=== PATIENT | male | born 1950 | race Caucasian/White ===

== ENCOUNTER → 2018-04-28 17:24 | Outpatient (CLI) | payer MEDICARE, MEDICAID, SELFPAY | PROVIDERS: Referring Provider Otolaryngology; Visit Provider Otolaryngology | DX: J32.9 Chronic sinusitis, unspecified (principal) | CPT/HCPCS: 87070; 87077; 87186; 87205 ==

== ENCOUNTER 2018-05-05 23:04 | Emergency (ER) | payer MEDICARE, MEDICAID, SELFPAY ==
[2018-05-05 23:06] VITALS: BP 143/87; PULSE 55; RESP 18; TEMP 36.4; O2SAT 98; BMI 37.1
--- NOTE | 2018-05-05 23:27 | EKG12_ITS ---
Test Reason : SOB Blood Pressure : / mmHG Vent. Rate : 049 BPM Atrial Rate : 049 BPM P-R Int : 164 ms QRS Dur : 104 ms QT Int : 472 ms P-R-T Axes : 047 000 018 degrees QTc Int : 426 ms Sinus bradycardia Otherwise normal ECG Confirmed by BRIANNE TAM, EVERARDO ([id number]), features editor BONI MCGUIRE ([id number]) on 05/10/2018 3:14:22 PM Referred By: Chun Vance Confirmed By:EVERARDO DECKER MD
--- NOTE | 2018-05-05 23:33 | ED.VISSUMM ---
- ER Visit Summary Date of Service: 05/05/18 Chief Complaint: Shortness of breath History of Present Illness: The patient is a [address] Brooks. He reports his shortness of breath began approximately 2 months ago. States that it is severe at worst and mild currently. He states it is unchanged with exertion. It is worse with laying flat. He has seen his primary care physician and had a chest x-ray that was unremarkable. He has an albuterol MDI and nebulizer and reports no relief with these. Patient denies any cough. No fever or chills. No chest pain, pressure, or tightness. He does have a history of a stent in 2012, but does not see a automobile dealer at this time. Physical Examination: Vitals: Stable. Afebrile. General: Well-nourished and well-developed. Head: Normocephalic atraumatic. Neck: Supple, no lymphadenopathy. No JVD. Nontender. Cardiovascular: Regular rate and rhythm. No murmurs. Respiratory: No respiratory distress. Clear to auscultation bilaterally. Abdominal: Soft, nontender, nondistended, normal bowel sounds. No guarding, rebound, or peritoneal signs. Back: Nontender. Extremities: Nontender, no edema. Skin: Normal color, no rash. Neurologic: Alert and oriented ?3. Cranial nerves II through XII are intact. Normal strength and sensation. Psych: Normal affect. Test Results: EKG is sinus bradycardia at [address] changes. There is no old EKG for comparison. Troponin is negative. PT DIRECTOR CLIENT SERVICES is 71. CBC is normal. Chem-7 is more for sodium 134, potassium 3.2, creatinine 0.66, calcium 8.4. Chest x-ray is normal. Emergency Department Course and Treatment: Patient's resting comfortably without complaint. Treatment Plan: I had a prolonged discussion with the patient and his about possible etiologies for this. He was unable to have a sleep study due to anxiety. He has the body habitus of somebody that could to have obstructive sleep apnea. His dyspnea is at night. I have suggested that he follow-up with his primary care physician as soon as possible for further evaluation. Return to the emergency department for any worsening symptoms. Disposition: To home in improved and stable condition. Impression: 1. Dyspnea, uncertain cause. This note was generated with [employer] software. It may contain incorrect words, spelling, and punctuation that were not noted in review of the chart prior to signing ED Disposition - Plan for ED Patient: Disposition: Home or Assisted Living Chief Complaint: Shortness of Breath Instructions: ED Dyspnea Shortness of Breath Referrals: Hansa Brooks, RN [Primary Care Provider] - As soon as possible
[2018-05-05 23:47] VITALS: O2SAT 96
[2018-05-05] MEDS: 0.9% Normal Saline 1,000 ML 150 ML IV (23:47)
[2018-05-05 23:56] LABS: Absolute Lymphocyte Count 2.12 X10^3/ul (0.83-4.51); Absolute Neutrophil Count 6.5 X10^3/uL (2.0-7.7); Basophil# 0.01 X10^3/uL; Basophil% 0.1 % (0-1); Eosinophil# 0.12 X10^3/uL; Eosinophils% 1.3 % (0-5); Hemoglobin 14.3 g/dl (13.0-16.5); Lymphocyte # 2.12 X10^3/ul (4.0); Lymphocyte % 22.3 % (19-41); Mean Corpuscular Hgb 30.4 pg (27.0-32.0); Mean Corpuscular Volume 89.4 fL (80-94); Mean Platelet Vol. 10.1 fl (6.2-12.0); Monocyte# 0.74 X10^3/uL; Monocyte% 7.8 % (0-10); Neutrophil # 6.49 X10^3/uL (2.7-7.7); Neutrophil % 68.1 % (47-70); Platelet Count 246 K/mm3 (150-450); RBC Distribution Width CV 13.1 % (11.6-14.6); RBC Distribution Width SD 42.8 fl (35.1-43.9); White Blood Count 9.5 K/mm3 (4.4-11.0)
--- NOTE | 2018-05-06 | RAD_ITS ---
STUDY: X-RAY CHEST REASON FOR EXAM: Male, 67 years old. Shortness of breath for 2 months. TECHNIQUE: PA and lateral views of the chest. COMPARISON: Prior comparison studies are not available for review at this time. FINDINGS: No focal infiltrate is seen. There is no demonstrated pleural abnormality. Normal size heart. Normal mediastinum and jeffrey. Normal visualized pulmonary arteries. There is atherosclerotic tortuosity of the aortic arch and descending thoracic aorta. There are degenerative changes of the visualized thoracic spine. There is degenerative osteoarthritis of the bilateral shoulders. There is no demonstrated abnormality of the visualized soft tissue structures of the upper abdomen. RAD/Chest PA and Lateral IMPRESSION: No active pulmonary disease. Electronically Signed: Guido Gibson MD at 0:35 EDT Tel , Service support ,
[2018-05-06 00:08] LABS: POSITIVE COUNT NO; POSITIVE DIFFERENTIAL NO; POSITIVE MORPHOLOGY NO
[2018-05-06 00:11] LABS: Anion Gap 6 (5-15); BUN 14 mg/dL (7-18); BUN/Creat Ratio 21.1 RATIO (10-20); Calcium,Total 8.4 mg/dL (8.5-10.1); Chloride 100 mmol/L (98-107); Creatinine, Serum 0.66 mg/dL (0.70-1.30); EST Glomerular Filtration Rate 127 mL/min (>60); Est Glom Filt Rate - Afr Amer 154 mL/min (>60); Estimated Creatinine Clearance 77.39 ml/min; Glucose 100 mg/dL (74-106); Potassium 3.2 mmol/L (3.5-5.1); Sodium Level 134 mmol/L (136-145)
[2018-05-06 00:27] LABS: BNP,B-Type NATRIURETIC PEPTIDE 70.8 pg/mL (0-100)
[2018-05-06 01:04] VITALS: BP 122/70; PULSE 50; RESP 16; O2SAT 98
--- NOTE | 2018-05-06 10:33 | CM.ED ---
Addendum entered by Alma Tucker 05/06/18 14:33: Patient returned call stating that he is having difficulty breathing. He states he has felt this way since he got home from the ER, early in the morning. He states he has used his inhaler but not his nebulizer. Patient states he left a message with his primary care doctor, but has not had a return call from them yet. He states he saw Dr. Roach for pulmonary testing on 04/15. He is scheduled to undergo sinus removal surgery on 05/[address] Valentine. I asked the patient if he has any history of anxiety. He stated that he had a very rare anxiety attach a couple years ago. He tells me he forgets what it was called, but the chances of having it are one in 100,000. His doctor prescribed him 10 valium at the time, but he has none left. Patient does indicate that he feels anxiety could be involved in his feelings of shortness of breath. I encouraged the patient to use his nebulizer and if he feels no improvement, to return to ED. We did discuss oxygen saturation and how his levels were 98% in the ER yesterday. I mentioned that, to calm his anxiety, he could purchase a pulse oximeter at a drug store. Reviewed that we want his oxygen saturation to be above 90%. Encouraged slow, deep breathing. Encouraged the patient to call Dr. Roach's office and continue to follow-up with PCP. Return to ED if no improvement, with nebulizer, or worsening of symptoms. Patient states understanding and agreement with this plan. Original Note: ED CALLBACK: Follow-up call placed to patient. No answer. Voicemail left with return contact information.
== END 2018-05-06 01:10 | disposition home or self-care (01) ==
LOC: ED 23:41
PROVIDERS: Emergency Provider Emergency Medicine; Family Provider Nurse Practitioner Family
DX: R06.00 Dyspnea, unspecified (principal); R00.1 Bradycardia, unspecified; R19.7 Diarrhea, unspecified; I25.10 Atherosclerotic heart disease of native coronary artery without angina pectoris; Z95.5 Presence of coronary angioplasty implant and graft; J45.909 Unspecified asthma, uncomplicated; F41.9 Anxiety disorder, unspecified; I10 Essential (primary) hypertension; Z87.891 Personal history of nicotine dependence
CPT/HCPCS: 71046; 80048; 83880; 84484; 85025; 93005; 99284; J7030

== ENCOUNTER → 2018-06-09 08:12 | Outpatient (CLI) | payer MEDICARE, MEDICAID, SELFPAY ==
--- NOTE | 2018-06-09 08:23 | ECHOD_ITS ---
Reason For Study: CAD/ASHD Procedure This was a 2D Doppler, Color Flow transthoracic echocardiogram. Exam performed in department. Left Ventricle Normal size and thickness. The estimated ejection fraction is 65 %. Stage 1 diastolic dysfunction. No regional wall motion abnormalities noted. Right Ventricle Normal size and thickness. Normal systolic function. Atria Normal left atrium. Normal right atrium. Normal atrial septum. Mitral Valve The mitral valve is structurally normal. No prolapse or stenosis seen. Trivial mitral valve insufficiency. Tricuspid Valve Normal tricuspid valve. Trivial tricuspid valve insufficiency. Right ventricular systolic pressure estimated to be 26 mmHg. Aortic Valve Trisinus/trileaflet aortic valve. Aortic sclerosis, no stenosis. Pulmonic Valve Normal pulmonic valve. Trivial pulmonic valve insufficiency. Great Vessels Normal aortic root. Normal arch. Normal inferior vena cava. Inferior vena cava collapse with sniff. Pericardium/Pleural No pericardial effusion. MMode/2D Measurements & Calculations LVIDd: 6.0 cm IVSd: 1.2 cm Ao root diam: 4.0 cm LVIDs: 4.0 cm LVPWd: 1.1 cm RVDd: 4.6 cm FS: 33.8 % LAV(MOD-bp): 61.7 ml LVAd ap4: 27.5 cm2 SV(MOD-sp4): 52.2 ml LAV(MOD-bp) Indexed: 26.1 ml/m2 EDV(MOD-sp4): 80.8 ml LAV(MOD-sp2): 78.0 ml EDV(sp4-el): 79.7 ml LAV(MOD-sp4): 47.7 ml LVAs ap4: 14.4 cm2 ESV(MOD-sp4): 28.6 ml ESV(sp4-el): 27.0 ml EF(MOD-sp4): 64.6 % EF(sp4-el): 66.1 % SV(sp4-el): 52.7 ml LA A4 area: 18.6 cm2 LA dimension(2D): 4.6 cm RA A4 area: 18.5 cm2 Doppler Measurements & Calculations MV E max mango: 65.0 cm/sec Lat Peak E' Mango: 6.9 cm/sec Med Peak E' Mango: 5.0 cm/sec MV A max mango: 94.7 cm/sec E/E' lat: 9.4 E/E' med: 13.1 MV E/A: 0.69 Ao V2 max: 163.8 cm/sec LV V1 max: 128.5 cm/sec PA V2 max: 96.1 cm/sec Ao max P.7 mmHg LV V1 max P.6 mmHg Ao V2 mean: 113.5 cm/sec Ao mean P.7 mmHg Ao V2 VTI: 38.5 cm TR max mango: 231.5 cm/sec TR max P.4 mmHg Interpretation Summary The estimated ejection fraction is 65 %. Stage 1 diastolic dysfunction. Trivial mitral valve insufficiency. Trivial tricuspid valve insufficiency. Right ventricular systolic pressure estimated to be 26 mmHg. There is no comparison study available. Ordering Physician: Ramo Tolliver Referring Physician: Hansa Brooks Performed By: Yeny Gutierrez, TANYA, RVT
[2018-06-09 09:25] LABS: AST(SGOT) 22 U/L (15-37); Alanine Aminotransfer ALT/SGPT 37 U/L (16-61); Albumin, Serum 3.6 g/dL (3.2-5.0); Alkaline Phosphatase 81 U/L (45-117); Cholesterol 202 mg/dL (200); Globulin 3.3 g/dL (2.2-4.2); High Density Lipoprotein 44 mg/dL; Protein, Total 6.9 g/dL (6.4-8.2); Triglycerides 91 mg/dL; Very Low Density Lipoprotein 18 mg/dL (5-40)
== END ==
PROVIDERS: Family Provider Nurse Practitioner Family; Referring Provider Internal Medicine Cardiovascular Disease; Visit Provider Internal Medicine Cardiovascular Disease
DX: I25.10 Atherosclerotic heart disease of native coronary artery without angina pectoris (principal); I71.9 Aortic aneurysm of unspecified site, without rupture; I10 Essential (primary) hypertension; R06.02 Shortness of breath; Z95.5 Presence of coronary angioplasty implant and graft
CPT/HCPCS: 36415; 80061; 80076; 93306

== ENCOUNTER → 2018-06-15 09:19 | Outpatient (CLI) | payer MEDICARE, SELFPAY ==
--- NOTE | 2018-06-15 09:20 | STEWCON_ITS ---
Reason For Study: SOB, PATTEN Stress Results Protocol: Prasad Protocol Maximum Predicted HR: 153 bpm Target HR: 130 bpm % Maximum Predicted HR: 80 % DurationHeart Rate Stage (mm:ss) (bpm) BP Comment Baseline 66 122/88Diluted Definity 3 ML Given; No Chest Pain Prasad Protocol Stage I 3:00 92 156/82No Chest Pain; Moderate Dyspnea Prasad Protocol Stage II 3:00 123 174/80No Chest Pain; Severe Dyspnea; Mild Arm Pain Recovery 85 120/84No Chest Pain; No Dyspnea Stress Duration: 6:00 mm:ss Maximum Stress HR: 123 bpm METS: 7 Baseline Echocardiogram Findings The estimated ejection fraction is 60 %. Stress Echo Wall motion Data Resting WM Intermediate WM Stress WM Resting Wall Motion Wall Motion Stress No regional wall motion No regional wall motion abnormalities noted. abnormalities noted. EKG Data Normal intervals are noted. The patient exercised according to the regular Prasad protocol for a total duration of 6:00. The maximum heart rate attained was 141 beats per minute. This was 92% of maximum predicted heart rate. The patient exercised into stage 3 of the Prasad protocol. At peak exercise, upsloping ST changes only were noted, which did not meet the criteria for ischemia. No clinical angina was noted. Interpretation Summary The study was technically difficult. Contrast injection was performed. The estimated ejection fraction is 60 %. Normal, adequate, treadmill echocardiogram. Negative for ischemia by EKG and echocardiographic criteria. No anginal symptoms noted. Rare PVC noted. Appropriate blood pressure response to exercise. Average exercise capacity for age. Test terminated due to dyspnea. Final LVEF is 75%. Decreased sensitivity due to poor echo windows requiring Definity agent. Patient had subtle upsloping ST segment depression but did not reach criteria over and above his baseline ST segments. No associated wall motion abnormalities noted. No complications. Ordering Physician: Ramo Tolliver Referring Physician: Ramo Tolliver Performed By: Chema, Maureen, RDCS
[2018-06-15 12:39] LABS: Hematocrit 44.8 % (40-54); Hemoglobin 14.6 g/dl (13.0-16.5); Mean Corp Hgb Conc 32.6 g/gl (32-36); Mean Corpuscular Volume 92.2 fL (80-94); Mean Platelet Vol. 10.9 fl (6.2-12.0); Platelet Count 247 K/mm3 (150-450); RBC Distribution Width CV 13.5 % (11.6-14.6); RBC Distribution Width SD 45.7 fl (35.1-43.9); Red Blood Count 4.86 M/mm3 (4.6-6.2); White Blood Count 7.7 K/mm3 (4.4-11.0)
[2018-06-15 12:44] LABS: Prothrombin Time (Protime)PT. 13.4 SECONDS (11.7-14.9); Scan Indicated on CBC? Y/N NO
[2018-06-15 12:45] LABS: Partial Thromboplast Time 26.1 Seconds (24.1-36.2)
[2018-06-15 13:03] LABS: Anion Gap 10 (5-15); BUN 13 mg/dL (7-18); BUN/Creat Ratio 15.7 RATIO (10-20); Calcium,Total 8.8 mg/dL (8.5-10.1); Chloride 104 mmol/L (98-107); Creatinine, Serum 0.83 mg/dL (0.70-1.30); EST Glomerular Filtration Rate 99 mL/min (>60); Est Glom Filt Rate - Afr Amer 119 mL/min (>60); Glucose 105 mg/dL (74-106); Potassium 3.6 mmol/L (3.5-5.1); Sodium Level 140 mmol/L (136-145)
== END ==
PROVIDERS: Family Provider Nurse Practitioner Family; Referring Provider Internal Medicine Cardiovascular Disease; Visit Provider Internal Medicine Cardiovascular Disease
DX: I25.10 Atherosclerotic heart disease of native coronary artery without angina pectoris (principal); I71.9 Aortic aneurysm of unspecified site, without rupture; R94.39 Abnormal result of other cardiovascular function study; R06.02 Shortness of breath; Z95.5 Presence of coronary angioplasty implant and graft
CPT/HCPCS: 36415; 80048; 85027; 85610; 85730; 93017; 93350; Q9957; A4216; C8928

== ENCOUNTER 2018-06-21 11:12 | Observation (INO) | payer MEDICARE, MEDICAID, SELFPAY ==
[2018-06-18 07:20] VITALS: BMI 37.8
[2018-06-21] VITALS (21 sets, daily range): BP systolic 85–152; BP diastolic 53–80; PULSE 46–66; RESP 10–21; TEMP 36.3–37.1; O2SAT 92–100; BMI 37.5; BMI 37.8
--- NOTE | 2018-06-21 11:09 | CL.I_ITS ---
Patient Name: KIRIT MCGUIRE Study Date: 06/21/2018 Performing: Ramo Tolliver MD Ht: 70 inches 178 cm : 1950 Wt: 264.9 lbs 120 kg Age: 68 Gender: male BSA: 2.35 PROCEDURE(S) PERFORMED TA94-JIC/COR/LV [id number] W OR WO PTCA, SINGLE CORONARY ARTERY CLINICAL PROFILE AND CO-MORBIDITIES Indications: New Onset Angina <= 2 months, Stable Known CAD Heart Failure: None Stress/Imaging Stress Echocardiogram: Yes Result: Negative Stress Echocardiogram: Negative Angina Classification Anginal Classification w/in 2 Weeks: CCS III CAD Presentations: Other: Severe PATTEN Comorbidities/Risk Factors: Hypertension Dyslipidemia Prior PCI CONCLUSIONS 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 RECOMMENDATIONS Referred for immediate PCI of LAD, followed by FFR/PCI of RCA in 3 weeks. Highly recommend quitting all tobacco products Follow up with primary cafeteria cashier Risk factor modification ASA Indefinitley Plavix for at least 12 months Routine post interventional care Refer for Outpatient Cardiac Rehab Manual sheath removal per protocol Follow up with Dr. Tloliver Elective FFR/PCI of proximal RCA in 3 weeks using a long 55 cm sheath for bilateral aorto-iliac stent graft. Manual sheath removal due to previous stent graft. DESCRIPTION OF PROCEDURE The patient arrived to the procedure lab. The risks and benefits of the procedure as well as a full d escription of our services here and lack of surgical backup were fully explained to the patient and/o r their significant other prior to the catheterization. The Timeout was completed, verifying the darling ect patient and procedure. The patient's procedural site was prepped and draped in the usual fashion. Local anesthetic was given subcutaneously to right groin region with Lidocaine 2%. Using a modified Seldinger technique, arterial access was obtained via the right femoral artery, a 4Fr sheath was inse rted. Left Coronary Artery selective angiography was performed in multiple views using a 4 Fr. JL5 c atheter. Right Coronary Artery selective angiography was then performed in multiple views using a 4 F r. 3DRC catheter. Left Ventriculography was performed in DELANEY projection using a 4 Fr. Pigtail cathete r. LV to AO pullback pressures were then recordedThe images were reviewed and options discussed. A decision was then made to proceed with an Intervention, IVUS or other adjunct procedure. Arterial sheath was exchanged for a 6 Fr Sheath. EBU 3.75 Guide catheter was inserted and engaged into the LCA, however unable to get pics. AL 1 Guide catheter was inserted and engaged into the LCA. bmw Guide wire was advanced to the LAD. 2.0x12 emerge Balloon catheter was advanced across lesion in the LAD, mid. PTCA balloon inflated at 6 atms for 8 secs. 3.0x16 synergy Drug Eluting stent was adva nced across the lesion in the LAD, mid. 3.25x12 NC emerge Balloon catheter was advanced across lesion in the LAD, mid. Angiogram performed post stent deployment. The arterial sheath was sutured in ulices ce and capped. The arterial sheath was pulled and manual compression applied until hemostasis is achi eved. CORONARY ANGIOGRAPHY DOMINANCE: Right Dominant LEFT HEART ASSESSMENT Left Ventricular Ejection Fraction: by LV Gram 65 % Normal Left Ventricular systolic function LVEDP: 18 mmHg Normal LV wall motion LEFT MAIN: Angiographically normal LEFT ANTERIOR DECENDING ARTERY: MID LAD: 75 % Stenosis DISTAL LAD: Mild luminal irregularities less than 30% CIRCUMFLEX ARTERY: OM 1: Proximal - Previously placed stent is patent RIGHT CORONARY ARTERY: PROX RCA: 70 % Stenosis INTERVENTION INFORMATION LESION SITE: LAD (Mid) Lesion Complexity: Non-High/Non-C, lesion at bifurcation: No, thrombus present: No, lesion length: 16 mm, culprit lesion: Yes Pre Stenosis: 75 % Pre intervention ERICH flow: 3 PROCEDURE: Drug Eluting Stent with pre and post dilatation Post Stenosis: 0 % Post intervention ERICH flow: 3 Lesion Devices: Medtronic 6 Fr EBU3.75 100cm Guide Catheter [place] .014 [employer] [place] Straight 190cm Medtronic 6 Fr AL1.0 100cm Guide Catheter U[employer] EMERGE MR 2.00x12 BALLOON Urbano Sci NC EMERGE MR 3.25x12 BALLOON [employer] Synergy MR ABHINAV 3.00x16 COMPLICATIONS No Complications PROCEDURE MEDICATIONS Versed 1 mg IV Oxygen: 2 L/min via nasal cannula Heparin 6000 unit(s) IV 06/21/2018 10:39:37 Nitro 200 mcg IC 06/21/2018 10:50:17 Nitro glycerin 25mg / 250ml D5W @ 10 mcg/min IV started 06/21/2018 10:58:21 Nitro Tab 1 mg PO 06/21/2018 11:07:50 Nitro glycerin 25mg / 250ml D5W @ 20 mcg/min (increased rate) 06/21/2018 11:08:08 Nitro glycerin 25mg / 250ml D5W @ 5 mcg/min (decreased rate) 06/21/2018 11:33:44 IV Bolus: .9 NaCl 250 ml total 06/21/2018 11:00:31 SUMMARY OF HEMODYNAMIC DATA Time AIR REST ECG 07:22:59 AO 179/88 (122) SA 10:28:44 LV 137/0, 18 10:37:03 LV 140/-5, 13 10:37:10 LVp 143/-2, 19 10:37:15 AOp 163/81 (115) 10:37:20 Signed By Ramo Tolliver MD On 06/21/2018 2:11:29 PM Ramo Tolliver MD
--- NOTE | 2018-06-21 11:25 | EKG12_ITS ---
Test Reason : POST STENT Blood Pressure : / mmHG Vent. Rate : 057 BPM Atrial Rate : 057 BPM P-R Int : 128 ms QRS Dur : 100 ms QT Int : 450 ms P-R-T Axes : 045 031 025 degrees QTc Int : 438 ms Sinus bradycardia Otherwise normal ECG When compared with ECG of 05-MAY-2018 23:54, No significant change was found Confirmed by BRIANNE TAM, EVERARDO ([id number]), editor greeting card BONI MCGUIRE ([id number]) on 06/25/2018 2:04:54 PM Referred By: Ramo Tolliver Confirmed By:EVERARDO DECKER MD
[2018-06-21] MEDS: 0.9% Normal Saline 1,000 ML 150 ML IV (12:20)
[2018-06-21 13:11] LABS: ACT Activated Clotting Time 147 sec (74-137)
--- NOTE | 2018-06-21 13:55 | CRPHASE1 ---
Patient Data/Charges Cryptographic Machine Operator:: Ramo Tolliver Refer Phase II:: Yes Phase II Referral:: [facility] Start Phase II:: after follow up visit with cardiology Phase I Charge:: Level I - Education Risk Factors/Lifestyle Smoking Status: Former smoker - quit 5 years ago Hx Hypertension: Yes Hx Metabolic Disorders: Yes Hx Dyslipidemia: Yes Hx Obesity: Yes Height: 5 ft 10 in Weight:: 264 lb BMI: 37.8 Risk Factor for Sedentary Lifestyle: Lowest Risk Family History: Family History (Last Reviewed 06/01/18 @ 09:22 by Emily Knox) Mother Cancer Family History: Heart Disease Past Cardiac Illness: Coronary Artery Disease, Previous PCI w/Stent Phase I Education Given On:: [place], Nutrition, Antiplatelet medication, CHF Issues Affecting Care:: None Knowledge of Condition:: Yes Hospital Course Presenting Symptoms:: SOB Medical/Surgical History Angina:: Yes CAD:: Yes Hypertension:: Yes Dyslipidemia:: Yes Depression:: Yes Anxiety:: Yes Discharge/Home/Social Eval Marital Status: Exercise/Recreation/Interests:: Plans to [facility] to [facility] [place] where he is already established.
--- NOTE | 2018-06-21 13:59 | CRPHASE1_ITS ---
Patient Data/Charges Bulk Picker:: Ramo Tolliver Refer Phase II:: Yes Phase II Referral:: [facility] Start Phase II:: after follow up visit with cardiology Phase I Charge:: Level I - Education Risk Factors/Lifestyle Smoking Status: Former smoker - quit 5 years ago Hx Hypertension: Yes Hx Metabolic Disorders: Yes Hx Dyslipidemia: Yes Hx Obesity: Yes Height: 5 ft 10 in Weight:: 264 lb BMI: 37.8 Risk Factor for Sedentary Lifestyle: Lowest Risk Family History: Family History (Last Reviewed 06/01/18 @ 09:22 by Emily Knox) Mother Cancer Family History: Heart Disease Past Cardiac Illness: Coronary Artery Disease, Previous PCI w/Stent Phase I Education Given On:: [place], Nutrition, Antiplatelet medication, CHF Issues Affecting Care:: None Knowledge of Condition:: Yes Hospital Course Presenting Symptoms:: SOB Medical/Surgical History Angina:: Yes CAD:: Yes Hypertension:: Yes Dyslipidemia:: Yes Depression:: Yes Anxiety:: Yes Discharge/Home/Social Eval Marital Status: Exercise/Recreation/Interests:: Plans to go to at [facility] in [place] where he is already established.
--- NOTE | 2018-06-21 14:01 | CRPH1.INSTRU ---
General Education CAD and cardiac anatomy and function:: Patient communicates acknowledgment, Needs reinforcement Explanation of diagnoses and procedures:: Patient communicates acknowledgment, Needs reinforcement Sign/Symptoms of CO:: Patient communicates acknowledgment, Needs reinforcement Antiplatelet therapy: Patient communicates acknowledgment, Needs reinforcement Proper use of NTG-SL: Patient communicates acknowledgment, Needs reinforcement Emergency procedures and activation of EMS: Patient communicates acknowledgment, Needs reinforcement Compliance of all prescribed medications: Patient communicates acknowledgment, Needs reinforcement Smoking Patient Nicotine/Smoking Risk Factors Are:: Non-smoker Recommendations Include:: Second-hand smoke recommendation, Previous smoker; encourage continued cessation Nicotine/Smoking Response Code:: Patient communicates acknowledgment, Needs reinforcement Dyslipidemia Patient Dyslipidemia Risk Factors Are:: Total Cholesterol, Triglycerides, HDL, LDL Recommendations Include:: Lipid profile provided, Reviewed NCEP/ATP guidelines, Therapeutic Lifestyle Change dietary guidelines Dyslipidemia Response Code:: Patient communicates acknowledgment, Needs reinforcement Overweight/Obesity Patient Overweight/Obesity Risk Factors Are:: Obesity - > or = 30 Recommendations Include:: Weight loss of 5-10%, Reduced calorie diet, Exercise 5-7 times/week Overweight/Obesity:: Patient communicates acknowledgment, Needs reinforcement Hypertension Recommendations Include:: Maintain BP <130/85, DASH dietary guidelines, Decrease/maintain normal body weight, Moderation of ETOH Hypertension:: Patient communicates acknowledgment, Needs reinforcement Heart Disease Patient Heart Disease Risk Factors Are:: Family history of heart disease < 65 years old, Previous cardiac event Recommendations Include:: Educated family members of their risk, Educated family members of importance of prevention of heart disease Heart Disease Response Code:: Patient communicates acknowledgment, Needs reinforcement Diabetes Patient Diabetes Risk Factors Are:: No documented hx of diabetes Diabetes:: Not instructed Metabolic Syndrome Patient Metabolic Syndrome Risk Factors Are [3 of 5]:: Waist circumference > 35 [female] or 40 [male], Hypertension, Low HDL <40 [male] or < 50 [female] Recommendations Include:: Reinforce compliance to risk factor modifications, Encouraged follow-up with Primary Care Physician Metabolic Syndrome Response Code:: Patient communicates acknowledgment, Needs reinforcement Sedentary Recommendations Include:: Aerobic exercise 5-7 times/week for 20-30 minutes continuously, Benefits of regular exercise, Discussed home walking program, Monitored Outpatient Cardiac Rehab Sedentary Response Code:: Patient communicates acknowledgment, Needs reinforcement Stress Recommendations Include:: Identification of stressors, and assessment of coping skills, Stress management techniques Stress Response Code:: Patient communicates acknowledgment, Needs reinforcement - Plans to go to CR at [facility] in [place] where he is already established.
[2018-06-21] MEDS: LORazepam 1 MG Tablet PO (16:56)
[2018-06-21] MEDS: diazePAM 2 MG Tablet PO (21:56)
[2018-06-22] VITALS (12 sets, daily range): BP systolic 97–157; BP diastolic 42–90; PULSE 48–71; RESP 11–20; TEMP 36.4–36.9; O2SAT 93–100
[2018-06-22 05:04] LABS: Anion Gap 10 (5-15); BUN 18 mg/dL (7-18); BUN/Creat Ratio 22.7 RATIO (10-20); Calcium,Total 8.1 mg/dL (8.5-10.1); Chloride 109 mmol/L (98-107); Cholesterol 180 mg/dL (200); Creatinine, Serum 0.79 mg/dL (0.70-1.30); EST Glomerular Filtration Rate 103 mL/min (>60); Est Glom Filt Rate - Afr Amer 125 mL/min (>60); Estimated Creatinine Clearance 74.01 ml/min; Glucose 101 mg/dL (74-106); High Density Lipoprotein 37 mg/dL; Sodium Level 143 mmol/L (136-145); Triglycerides 109 mg/dL; Very Low Density Lipoprotein 22 mg/dL (5-40)
[2018-06-22 05:06] LABS: Hematocrit 42.6 % (40-54); Hemoglobin 14.1 g/dl (13.0-16.5); Mean Corp Hgb Conc 33.1 g/gl (32-36); Mean Corpuscular Hgb 30.6 pg (27.0-32.0); Mean Corpuscular Volume 92.4 fL (80-94); Mean Platelet Vol. 10.6 fl (6.2-12.0); Platelet Count 209 K/mm3 (150-450); RBC Distribution Width SD 46.7 fl (35.1-43.9); Red Blood Count 4.61 M/mm3 (4.6-6.2); Scan Indicated on CBC? Y/N NO; White Blood Count 7.7 K/mm3 (4.4-11.0)
[2018-06-22] MEDS: Aspirin E.C. 81 MG Tablet PO (09:23)
[2018-06-22] MEDS: Clopidogrel Bisulfate 75 MG Tablet PO (09:24)
[2018-06-22] MEDS: Isosorbide Mononitrate 60 MG Tablet PO (09:27)
[2018-06-22] MEDS: Chlorthalidone 50 MG Tablet 12.5 MG PO (09:27)
[2018-06-22] MEDS: Atenolol 25 MG Tablet PO (09:28)
--- NOTE | 2018-06-22 09:35 | PCM.PN.CARD ---
Subjectve: Patient doing very well this morning, no further chest pain. Reports mild improvement of shortness of breath and dyspnea, and right groin is clean/dry/intact, no thrills or bruits. Hemoglobin and creatinine are within nominal limits. EKG shows normal sinus rhythm, no changes. Telemetry showed normal sinus rhythm with 6 beats of wide-complex tachycardia. Objective: Vital Signs Temp Pulse Resp BP Pulse Ox 97.5 F L 56 L 15 143/90 H 99 06/22/18 04:00 06/22/18 06:00 06/22/18 06:00 06/22/18 06:00 06/22/18 06:00 Oxygen Flow Rate (L/min) 1 Oxygen Delivery Method Room Air Weight: 264 lb 8.875 oz Body Mass Index (BMI) 37.5 Intake and Output for Last 24 Hours 06/20/18 06/21/18 06/22/18 23:59 23:59 23:59 Intake Total 1200 / 1200 240 / 240 Output Total 650 / 650 600 / 600 Balance 550 / 550 -360 / -360 General: Awake, Alert, Oriented x 3 HEENT: PERRL, EOMI, Sclera Non Icteric Neck: Supple, Good ROM, No Lymph Node Enlargement Lungs: Clear to auscultation Cardiovascular: Regular Rhythm, Normal S1, Normal S2, No Murmurs, No Rubs, No Gallops Vascular: No Carotid Bruits, Normal Femoral Pulses, Normal Radial Pulses, Normal Dorsalis Pedal Pulse, Normal Posterior Tibial Pulses Abdomen: Bowel Sounds Present, Soft, Non Tender, No HSM, No Organomegaly Extremities: No Cyanosis, No Clubbing, No edema Neurological: No Focal Motor or Sensory Deficit 06/22/18 04:35: WBC 7.7, RBC 4.61, Hgb 14.1, Hct 42.6, MCV 92.4, MCH 30.6, MCHC 33.1, RDW 14.0, RDW Differential 46.7 H, Plt Count 209, MPV 10.6 06/22/18 04:35: Sodium 143, Potassium 4.0, Chloride 109 H, Carbon Dioxide 24.0, Anion Gap 10, BUN 18, Creatinine 0.79, Est GFR (MDRD) Af Amer 125, Est GFR (MDRD) Non-Af 103, BUN/Creatinine Ratio 22.7 H, Glucose 101, Calcium 8.1 L, Triglycerides 109, Cholesterol 180, LDL Cholesterol 121, VLDL Cholesterol 22, HDL Cholesterol 37 L Rhythm: EKG: ECHO: Stress Test: Cardiac Cath: PCI: CT Surgery: Holter monitor: EPS: PPM: CXR: Chest CT Scan: Medical Necessity - Tobacco Use Smoking Status: Former smoker - quit 5 years ago Assessment/Plan 1. Coronary artery disease: Patient had progression of disease of his mid LAD, widely patent obtuse marginal stent previously placed in the past. Patient underwent successful angioplasty and drug-eluting stenting to his mid LAD. Patient return in 3 weeks time for elective PCI of his proximal right coronary artery. In the meantime he will continue his baby aspirin, Plavix, Imdur and atenolol. He will be set up for cardiac rehab once his second stent has been placed. 2. Dyspnea on exertion: The patient's main complaint is dyspnea on exertion, and if after his second angioplasty is dyspnea does not improve, I would recommend referring him back to Dr. Roach, or a second opinion with another registered travel nurse. Patient apparently had recent pulmonary function test and Dr. Roach's office, although I do not have those results. Patient may benefit from anti-asthma medications. 3. Hyperlipidemia: Continue present antilipid therapy. 4. Peripheral vascular disease: The patient will need a long 55 cm sheath for PCI of the right coronary artery given his aortoiliac stent graft. 5. Patient may be discharged home today and follow-up with Dr. Tolliver going forward. Code Visit OBSV E&M: 52464 Initial observation care L2
--- NOTE | 2018-06-22 09:40 | PN.CARD_ITS ---
Subjectve: Patient doing very well this morning, no further chest pain. Reports mild improvement of shortness of breath and dyspnea, and right groin is clean/dr y/intact, no thrills or bruits. Hemoglobin and creatinine are within nominal limits. EKG shows normal sinus rhythm, no changes. Telemetry showed normal sinus rhythm with 6 beats of wide-complex tachycardia. Objective: Vital Signs Temp Pulse Resp BP Pulse Ox 97.5 F L 56 L 15 143/90 H 99 06/22/18 04:00 06/22/18 06:00 06/22/18 06:00 06/22/18 06:00 06/22/18 06:00 Oxygen Flow Rate (L/min) 1 Oxygen Delivery Method Room Air Weight: 264 lb 8.875 oz Body Mass Index (BMI) 37.5 Intake and Output for Last 24 Hours 06/20/18 06/21/18 06/22/18 23:59 23:59 23:59 Intake Total 1200 / 1200 240 / 240 Output Total 650 / 650 600 / 600 Balance 550 / 550 -360 / -360 General: Awake, Alert, Oriented x 3 HEENT: PERRL, EOMI, Sclera Non Icteric Neck: Supple, Good ROM, No Lymph Node Enlargement Lungs: Clear to auscultation Cardiovascular: Regular Rhythm, Normal S1, Normal S2, No Murmurs, No Rubs, No Gallops Vascular: No Carotid Bruits, Normal Femoral Pulses, Normal Radial Pulses, Normal Dorsalis Pedal Pulse, Normal Posterior Tibial Pulses Abdomen: Bowel Sounds Present, Soft, Non Tender, No HSM, No Organomegaly Extremities: No Cyanosis, No Clubbing, No edema Neurological: No Focal Motor or Sensory Deficit 06/22/18 04:35: WBC 7.7, RBC 4.61, Hgb 14.1, Hct 42.6, MCV 92.4, MCH 30.6, MCHC 33.1, RDW 14.0, RDW Differential 46.7 H, Plt Count 209, MPV 10.6 06/22/18 04:35: Sodium 143, Potassium 4.0, Chloride 109 H, Carbon Dioxide 24.0, Anion Gap 10, BUN 18, Creatinine 0.79, Est GFR (MDRD) Af Amer 125, Est GFR (MDRD) Non-Af 103, BUN/Creatinine Ratio 22.7 H, Glucose 101, Calcium 8.1 L, Triglycerides 109, Cholesterol 180, LDL Cholesterol 121, VLDL Cholesterol 22, HDL Cholesterol 37 L Rhythm: EKG: ECHO: Stress Test: Cardiac Cath: PCI: CT Surgery: Holter monitor: EPS: PPM: CXR: Chest CT Scan: Medical Necessity - Tobacco Use Smoking Status: Former smoker - quit 5 years ago Assessment/Plan 1. Coronary artery disease: Patient had progression of disease of his mid LAD, widely patent obtuse marginal stent previously placed in the past. Patient underwent successful angioplasty and drug-eluting stenting to his mid LAD. Patient return in 3 weeks time for elective PCI of his proximal right coronary artery. In the meantime he will continue his baby aspirin, Plavix, Imdur and atenolol. He will be set up for cardiac rehab once his second stent has been placed. 2. Dyspnea on exertion: The patient's main complaint is dyspnea on exertion, and if after his second angioplasty is dyspnea does not improve, I would recommend referring him back to Dr. Roach, or a second opinion with another distribution warehouse manager. Patient apparently had recent pulmonary function test and Dr. Roach's office, although I do not have those results. Patient may benefit from anti-asthma medications. 3. Hyperlipidemia: Continue present antilipid therapy. 4. Peripheral vascular disease: The patient will need a long 55 cm sheath for PCI of the right coronary artery given his aortoiliac stent graft. 5. Patient may be discharged home today and follow-up with Dr. Tolliver going forward. Code Visit OBSV E&M: 08576 Initial observation care L2
--- NOTE | 2018-06-22 10:45 | CASEMGMT ---
DMITRI MENESES INITIAL ASSESSMENT D/C PLAN: Home Face to Face with patient for initial transition planning/care coordination assessment. DMITRI MENESES introduced self and role at [facility]. Care providers, pharmacy, and demographics verified. PCP: Hansa rUban Pharmacy: [facility] Insurance: [facility] Prescription Benefit: Yes Living Will/HPOA: Does not have either. States interested in further information. Provided AD info packet and SW, Angelic, notified that pt and his would like to talk with her. LNOK: Living Arrangements: Lives with . Independent @ home. Transportation: Pt, . DME: Denies using any DME and denies needs. HHC: Denies needs and no needs identified. Pt wishes to return home. States is planning on having a sleep study done soon. Denies needs/questions/concerns at this time. CM to follow for any further discharge planning needs that may arise. Selwyn RODRIGUEZN DMITRI MENESES
--- NOTE | 2018-06-22 11:17 | DCINST_ITS ---
Discharge Diet: Low fat/ Low Cholesterol May shower in (days): 1 May resume sexual activity in: 1 week - if no groin problems occur. Lifting Restrictions: 10 pounds and also avoid any pushing or pulling for 3 days after your test. Additional Activity Instructions:: You must have someone drive you home. Do not drive until instructed by your doctor. You must have someone stay with you all night after your test. Rest in bed or on the couch until the next morning. Limit the number of times you go up and down stairs the day of your test. Call your doctor if your incision/area has: Continuous Slow Oozing, Sudden Increased Bleeding, Increased Pain/ Swelling, Increased Redness, Foul Smelling Discharge, Swelling at the incision site Call your doctor if you observe: Fever of 101 or Higher, Shortness of breath, Chest pain Remove Dressing in (days):: 1 Additional Dressing/Incision Instructions:: Keep the dressing (bandage) on until the next morning. You may then shower, but do not take a tub bath for 5 days after your test. It is normal to have some tenderness and discomfort at the puncture site. Sometimes bruising also occurs. However, if pain, numbness, or coldness occurs below the puncture site (in your leg, toes, arms or fingers) call your doctor at once. You may have a small, marble sized knot at the puncture site. This is normal. Do not rub it. It will go away in 4-6 weeks. Bleeding can occur from the area where the puncture was done. Blood may spurt or drip from the site. If blood spurts, apply pressure right away to stop bleeding and call 911. Although rare, bleeding into the tissue (hematoma) can also occur. If this happens, a large, firm area goose egg under the skin will appear. If any of these occur, lie down as flat as you can and have someone apply firm pressure to the cath site with a gauze pad or a clean washcloth for 10-15 minutes. Call 911 or go to the Emergency Department. Additional Instructions: You were started on Imdur, this is a long acting nitro, continue this medication. If you can not tolerate it call our office. You will need to stay on you Plavix for at least one year. you have a follow up appt with us on 07/06- keep this appt. At that time we will discuss your next heart cath where Dr. Tolliver would like to do an additional stent. This is scheduled for 07/14. After this procedure we will refer you to cardiac rehab. Allergies/Adverse Reactions: Allergies codeine Adverse Reaction (Verified 06/18/18 07:21) High Fever Medications to take at Discharge aspirin 81 mg tablet,delayed release 81 mg PO DAILY 05/31/18 atenolol 50 mg-chlorthalidone 25 mg tablet 0.5 tab PO DAILY tab 05/31/18 diazepam 2 mg tablet 2 mg PO QHS tab 05/31/18 diazepam 5 mg tablet 5 mg PO BID PRN tab 05/31/18 fluticasone 50 mcg/actuation nasal spray,suspension 1 spray INTRANASAL DAILY 05/31/18 fluticasone furoate 200 mcg/actuation blister powder for inhalation 1 inh INHALATION DAILY 05/31/18 meclizine 12.5 mg tablet 12.5 mg PO TID PRN 05/31/18 sertraline 100 mg tablet 100 mg PO DAILY 05/31/18 tamsulosin 0.4 mg capsule 0.4 mg PO DAILY 05/31/18 vitamin B complex tablet 1 tab PO DAILY 05/31/18 clopidogrel 75 mg tablet 75 mg PO DAILY #30 tab 06/15/18 Isosorbide Mononitrate [Imdur] 60 mg PO DAILY #30 tablet 06/22/18 The following prescriptions were given: Isosorbide Mononitrate [Imdur] 60 mg PO DAILY #30 tablet Orders to be completed after discharge: Phase II, Outpatient Cardiac Rehab Location: None Selected Primary Care Physician: Hansa Brooks RN [Primary Care Provider] - Test Results: Test results from this visit will be discussed in further detail at your follow- up appointment, if applicable. Please Follow Up With: Ramo Tolliver MD When: 07/06 at 1:30 Cardiac Rehabilitation Info Cardiac Rehabilitation Program Information: Cardiac Rehabilitation is important for patients like you who are recovering from a heart problem. Cardiac rehabilitation programs are recognized as integral to the continued care of the patient with coronary heart disease. The cardiac rehabilitation program is designed to optimize a patient's physical, psychological, and social functioning. Health companion caregiver work in cardiac rehabilitation programs and assist you with getting the treatments you need to get stronger and healthier - like exercise, healthy eating habits, and medications. Cardiac rehabilitation has been show to help people with heart problems live longer and have better life enjoyment than people who do not go to cardiac rehabilitation. Please contact the Cardiac Rehabilitation Program at [facility] at in two weeks if you have not heard from them.
--- NOTE | 2018-06-22 13:03 | CASEMGMT ---
SW met with patient and his as RN CM told SW he wanted to complete advance directives. Completed documents for both patient and . Copies made and one set of each placed in patient's chart. Extra copies given to patient and his . Angelic VILLA MSW
== END 2018-06-22 09:40 | disposition home or self-care (01) ==
LOC: ICU 06-22 10:48
PROVIDERS: Admitting Provider Internal Medicine Cardiovascular Disease; Family Provider Nurse Practitioner Family; Referring Provider Internal Medicine Cardiovascular Disease; Visit Provider Internal Medicine Cardiovascular Disease
DX: I25.119 Atherosclerotic heart disease of native coronary artery with unspecified angina pectoris (principal); E78.5 Hyperlipidemia, unspecified; I10 Essential (primary) hypertension; Z95.5 Presence of coronary angioplasty implant and graft; Z79.82 Long term (current) use of aspirin; Z79.899 Other long term (current) drug therapy; Z79.02 Long term (current) use of antithrombotics/antiplatelets; Z87.891 Personal history of nicotine dependence; I73.9 Peripheral vascular disease, unspecified; R06.09 Other forms of dyspnea; R06.02 Shortness of breath; N40.0 Benign prostatic hyperplasia without lower urinary tract symptoms; F41.9 Anxiety disorder, unspecified; F32.9 Major depressive disorder, single episode, unspecified; I71.9 Aortic aneurysm of unspecified site, without rupture
CPT/HCPCS: 80048; 80061; 85027; 85347; 92928; 93005; 93458; 96360; 96361; 99152; 99153; 99218; J7030; J7040; C1725; C1769; C1874; C1887; C1894; C9600; G0378; G0379; Q9967

== ENCOUNTER 2018-06-28 16:45 | Observation (INO) | payer MEDICARE, MEDICAID, SELFPAY ==
[2018-06-21 11:45] VITALS: BMI 37.5
[2018-06-21 14:00] VITALS: BMI 37.8
[2018-06-28] VITALS (9 sets, daily range): BP systolic 102–141; BP diastolic 62–76; PULSE 52–60; RESP 14–20; TEMP 36.1–36.6; O2SAT 94–97; BMI 38.1; BMI 38.0
--- NOTE | 2018-06-28 16:50 | EKG12_ITS ---
Test Reason : CP SOB Blood Pressure : / mmHG Vent. Rate : 060 BPM Atrial Rate : 060 BPM P-R Int : 110 ms QRS Dur : 106 ms QT Int : 444 ms P-R-T Axes : 030 030 049 degrees QTc Int : 444 ms Sinus rhythm Confirmed by DYAN TAM, ELIDIA ([id number]), multimedia editor CHIO DAVEY ([id number] on 06/30/2018 4:28:43 PM Referred By: Confirmed By:ELIDIA ZAIDI MD
[2018-06-28 17:09] LABS: Absolute Lymphocyte Count 2.07 X10^3/ul (0.83-4.51); Absolute Neutrophil Count 4.8 X10^3/uL (2.0-7.7); Basophil# 0.03 X10^3/uL; Basophil% 0.4 % (0-1); Eosinophil# 0.25 X10^3/uL; Eosinophils% 3.3 % (0-5); Hemoglobin 13.2 g/dl (13.0-16.5); Lymphocyte # 2.07 X10^3/ul (4.0); Mean Corpuscular Hgb 30.1 pg (27.0-32.0); Mean Corpuscular Volume 91.1 fL (80-94); Mean Platelet Vol. 10.1 fl (6.2-12.0); Monocyte# 0.46 X10^3/uL; Neutrophil # 4.83 X10^3/uL (2.7-7.7); Neutrophil % 62.9 % (47-70); POSITIVE COUNT NO; POSITIVE DIFFERENTIAL NO; POSITIVE MORPHOLOGY NO; Platelet Count 231 K/mm3 (150-450); RBC Distribution Width CV 13.8 % (11.6-14.6); RBC Distribution Width SD 45.7 fl (35.1-43.9); Red Blood Count 4.39 M/mm3 (4.6-6.2); White Blood Count 7.7 K/mm3 (4.4-11.0)
[2018-06-28 17:21] LABS: Anion Gap 6 (5-15); BUN 22 mg/dL (7-18); BUN/Creat Ratio 26.5 RATIO (10-20); Calcium,Total 8.4 mg/dL (8.5-10.1); Chloride 104 mmol/L (98-107); Creatinine, Serum 0.83 mg/dL (0.70-1.30); EST Glomerular Filtration Rate 98 mL/min (>60); Est Glom Filt Rate - Afr Amer 119 mL/min (>60); Estimated Creatinine Clearance 89.17 ml/min; Glucose 103 mg/dL (74-106); Potassium 3.8 mmol/L (3.5-5.1); Sodium Level 137 mmol/L (136-145)
[2018-06-28] MEDS: Aspirin 81 MG TAB.CHEW 243 MG PO (17:30)
[2018-06-28] MEDS: 0.9% Normal Saline 1,000 ML 150 ML IV (17:30)
--- NOTE | 2018-06-28 17:30 | RAD_ITS ---
STUDY: X-RAY CHEST REASON FOR EXAM: Male, 68 years old. Shortness of breath. TECHNIQUE: Single frontal view of the chest. COMPARISON: May 06, 2018 FINDINGS: There is a vague opacity within the right upper/mid lateral lung. Normal size heart. Normal mediastinum and jeffrey. Normal visualized pulmonary arteries. The descending thoracic aorta is tortuous. Normal visualized thoracic spine. Normal visualized ribs, clavicles, and shoulders. There is no demonstrated abnormality of the visualized soft tissue structures of the upper abdomen. RAD/Chest 1 View (Portable) IMPRESSION: Indeterminate opacity within the right lateral lung, this may be secondary to a confluence of shadows, consider PA and lateral images or chest CT for further characterization. Electronically Signed: Gladys Pizano MD at 18:10 EST Tel , Service support ,
[2018-06-28] MEDS: Oxymetazoline 0.05% 1 SPRAY SPRAY.BTL NASAL (17:36)
--- NOTE | 2018-06-28 18:12 | EKG12_ITS ---
Test Reason : REPEAT Blood Pressure : / mmHG Vent. Rate : 061 BPM Atrial Rate : 061 BPM P-R Int : 154 ms QRS Dur : 096 ms QT Int : 442 ms P-R-T Axes : 051 021 024 degrees QTc Int : 444 ms Normal sinus rhythm Normal ECG Confirmed by DYAN TAM, ELIDIA ([id number]), assignment desk editor CHIO DAVEY ([id number]) on 06/30/2018 4:28:57 PM Referred By: HARINDER Confirmed By:ELIDIA ZAIDI MD
[2018-06-28] MEDS: Morphine 4 MG/ML Syringe IV (18:18)
[2018-06-28] MEDS: Ondansetron 4 MG/2 ML Vial IV (18:18)
[2018-06-28] MEDS: LORazepam 2 MG/ML Syringe 0.5 MG IV (18:42)
--- NOTE | 2018-06-28 20:07 | PCM.HP.STD ---
Problem List (1) Atherosclerotic heart disease of [place] coronary artery without angina pectoris Status: Chronic Comment: 50-60% stenosis in mid LAD; 80% ostial stenosis of Diagonal 1, which is small. Ramus: small w/mild disease. LCX: 90% stenosis in proion in proximal part. Rt external iliac and rt common femoral have mild luminal irregularities.ximal OM1, large vessel with multiple branches. RCA: Ectatic with no significant obstructive stenosis. Abdominal aortogram: see aortic aneurysm.ABHINAV to mid LAD (3.0 X 16 Promus) per Dr. Tolliver @ [facility]. (2) Aortic aneurysm Status: Chronic Comment: Per Abdominal aortogram done during cath 02/02/2012 @ [place]: ectatic/aneurysmal infrarenal abdominal aorta. Right common iliac has an aneurysmal portion with a possible 40-50% stenosis in proximal portion. Right exertnal iliac and right common femoral arteries have mild luminal irregularities. Left common iliac has an aneurysmal portion in the proximal part. The right external iliac artery and right common femoral artery have mild luminal irregularities. (3) Stented coronary artery Status: Chronic Comment: ABHINAV to OM 1: 3.0 X [address] Loco @ [facility] 02/02/2012; ABHINAV to mid LAD (3.0 X 16 Promus) per Dr. Tolliver @ [facility]. (4) Essential hypertension Status: Chronic (5) Shortness of breath Status: Acute (6) Chest pain Status: Acute History of Present Illness Date of Admission: 06/28/18 Chief Complaint: chest pain The patient is a 68 year old male patient with known coronary artery disease presents to the ER with chest pain. The pain is substernal and associated with shortness of breath. It was reported that the patient was scheduled to have a stent placed in the near future to due coronary vessel with 70% occlusion. He has had more relief of his pain from benzodiazepine than he did from the morphine. He will be admitted for further cardiac workup and consult. His initial troponin is negative. (He has a great deal of anxiety about holding his father as he from cardiac disease) Past Medical History Past Medical History (Chronic Problems): Chronic Problems (Last Updated 06/22/18 @ 09:16 by Emily Knox) Atherosclerotic heart disease of [place] coronary artery without angina pectoris (Chronic 02/02/12) 50-60% stenosis in mid LAD; 80% ostial stenosis of Diagonal 1, which is small. Ramus: small w/mild disease. LCX: 90% stenosis in proion in proximal part. Rt external iliac and rt common femoral have mild luminal irregularities.ximal OM1, large vessel with multiple branches. RCA: Ectatic with no significant obstructive stenosis. Abdominal aortogram: see aortic aneurysm.ABHINAV to mid LAD (3.0 X 16 Promus) per Dr. Tolliver @ [facility]. Aortic aneurysm (Chronic 02/02/12) Per Abdominal aortogram done during cath 02/02/2012 @ [place]: ectatic/aneurysmal infrarenal abdominal aorta. Right common iliac has an aneurysmal portion with a possible 40-50% stenosis in proximal portion. Right exertnal iliac and right common femoral arteries have mild luminal irregularities. Left common iliac has an aneurysmal portion in the proximal part. The right external iliac artery and right common femoral artery have mild luminal irregularities. Stented coronary artery (Chronic 06/21/18) ABHINAV to OM 1: 3.0 X [address] Loco @ [facility] 02/02/2012; ABHINAV to mid LAD (3.0 X 16 Promus) per Dr. Tolliver @ [facility]. Essential hypertension (Chronic) Medical History: Medical History (Last Updated 06/22/18 @ 09:16 by Emily Knox) Abnormal stress echocardiogram (Acute) R94.39 Atherosclerotic heart disease of [place] coronary artery without angina pectoris (Chronic) Onset Date: 02/02/12 I25.10 50-60% stenosis in mid LAD; 80% ostial stenosis of Diagonal 1, which is small. Ramus: small w/mild disease. LCX: 90% stenosis in proion in proximal part. Rt external iliac and rt common femoral have mild luminal irregularities.ximal OM1, large vessel with multiple branches. RCA: Ectatic with no significant obstructive stenosis. Abdominal aortogram: see aortic aneurysm.ABHINAV to mid LAD (3.0 X 16 Promus) per Dr. Tolliver @ [facility]. Aortic aneurysm (Chronic) Onset Date: 02/02/12 I71.9 Per Abdominal aortogram done during cath 02/02/2012 @ [place]: ectatic/aneurysmal infrarenal abdominal aorta. Right common iliac has an aneurysmal portion with a possible 40-50% stenosis in proximal portion. Right exertnal iliac and right common femoral arteries have mild luminal irregularities. Left common iliac has an aneurysmal portion in the proximal part. The right external iliac artery and right common femoral artery have mild luminal irregularities. Essential hypertension (Chronic) I10 Shortness of breath (Acute) R06.02 Anxiety and depression F41.9, F32.9 BPH (benign prostatic hyperplasia) N40.0 Allergies codeine Adverse Reaction (Verified 06/28/18 16:48) High Fever Home Medications: Ambulatory Orders Medication Instructions Recorded aspirin 81 mg tablet,delayed 81 mg PO DAILY 05/31/18 release atenolol 50 mg-chlorthalidone 25 0.5 tab PO DAILY tab 05/31/18 mg tablet diazepam 2 mg tablet 2 mg PO QHS tab 05/31/18 diazepam 5 mg tablet 5 mg PO BID PRN tab 05/31/18 fluticasone 50 mcg/actuation nasal 1 spray INTRANASAL DAILY 05/31/18 spray,suspension fluticasone furoate 200 1 inh INHALATION DAILY 05/31/18 mcg/actuation blister powder for inhalation meclizine 12.5 mg tablet 12.5 mg PO TID PRN 05/31/18 sertraline 100 mg tablet 100 mg PO DAILY 05/31/18 tamsulosin 0.4 mg capsule 0.4 mg PO DAILY 05/31/18 vitamin B complex tablet 1 tab PO DAILY 05/31/18 clopidogrel 75 mg tablet 75 mg PO DAILY #30 tab 06/15/18 Isosorbide Mononitrate [Imdur] 60 mg PO DAILY #30 tablet 06/22/18 Surgical History: Surgical History (Last Updated 06/22/18 @ 09:15 by Emily Knox) Stented coronary artery (Chronic) Onset Date: 06/21/18 Z95.5 ABHINAV to OM 1: 3.0 X [address] Loco @ [facility] 02/02/2012; ABHINAV to mid LAD (3.0 X 16 Promus) per Dr. Tolliver @ [facility]. S/P sinus surgery Onset Date: 05/10/18 Z98.[address] 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 Denies: Palpitations Respiratory: Reports: Shortness of breath at rest. Denies: Cough, Sputum production Gastrointestinal: Denies: Abdominal Pain, Nausea, Vomiting Genitourinary: Denies: Dysuria Musculoskeletal: Denies: Joint Pain, Joint Tenderness Skin: Denies: Rash, Wounds Neurological: Denies: Numbness, Tingling, Focal weakness Psychiatric: Reports: Anxiety. Denies: Depression, Homicidal Ideations, Suicidal Ideations Hematologic/ Lymphatic: Denies: Easy Bruising, Easy Bleeding VTE Information - Inpt Only VTE Present on Admission: No VTE Mechan Device Prophylaxis: None VTE Pharm Prophylaxis ordered?: Yes Patient Problems: Active and Suspected Problems (Last Updated 06/22/18 @ 09:16 by Emily Knox) Chest pain (Acute) - Physical Exam General: Alert, Oriented x3, Cooperative HEENT: Atraumatic, Normocephalic Neck: Supple Lungs: Clear to auscultation, Normal air movement, No rhonchi, No rales Cardiovascular: Regular rate, Regular Rhythm, Normal S1, Normal S2, No murmurs Abdomen: Bowel Sounds Present, Soft, Non Tender Extremities: No edema, Capillary Refill Less than 3 Seconds Skin: No rashes, No breakdown Musculoskeletal: No Tenderness to Palpation of Joints or Extremities Neurological: Neuro grossly intact Psych/Mental Status: Normal Affect, Appropriate, Anxious Vital Signs Temp Pulse Resp BP Pulse Ox 97 F L 60 15 105/62 94 06/28/18 19:45 06/28/18 19:45 06/28/18 19:45 06/28/18 19:45 06/28/18 19:45 Oxygen Flow Rate (L/min) 2 Oxygen Delivery Method Room Air Weight: 265 lb 14.04 oz Body Mass Index (BMI) 38.1 Laboratory Tests Past 24 Hrs 06/28/18 06/28/18 16:55 16:55 WBC 7.7 RBC 4.39 L Hgb 13.2 Hct 40.0 MCV 91.1 MCH 30.1 MCHC 33.0 RDW 13.8 RDW Differential 45.7 H Plt Count 231 MPV 10.1 Immature Gran % (Auto) 0.400 Neut % (Auto) 62.9 Lymph % (Auto) 27.0 [place] % (Auto) 6.0 Eos % (Auto) 3.3 Baso % (Auto) 0.4 Absolute Neuts (auto) 4.8 Absolute Lymphs (auto) 2.07 Total Counted Not Reportable Sodium 137 Potassium 3.8 Chloride 104 Carbon Dioxide 27.0 Anion Gap 6 BUN 22 H Creatinine 0.83 Estim Creat Clear Calc 89.17 Est GFR (MDRD) Af Amer 119 Est GFR (MDRD) Non-Af 98 BUN/Creatinine Ratio 26.5 H Glucose 103 Calcium 8.4 L Troponin I < 0.015 Assessment/Plan All Active Problems (Last Updated 06/22/18 @ 09:16 by Emily Knox) Chest pain (Acute) Abnormal stress echocardiogram (Acute) Shortness of breath (Acute) Chronic Problems (Last Updated 06/22/18 @ 09:16 by Emily Knox) Atherosclerotic heart disease of [place] coronary artery without angina pectoris (Chronic 02/02/12) 50-60% stenosis in mid LAD; 80% ostial stenosis of Diagonal 1, which is small. Ramus: small w/mild disease. LCX: 90% stenosis in proion in proximal part. Rt external iliac and rt common femoral have mild luminal irregularities.ximal OM1, large vessel with multiple branches. RCA: Ectatic with no significant obstructive stenosis. Abdominal aortogram: see aortic aneurysm.ABHINAV to mid LAD (3.0 X 16 Promus) per Dr. Tolliver @ [facility]. Aortic aneurysm (Chronic 02/02/12) Per Abdominal aortogram done during cath 02/02/2012 @ [place]: ectatic/aneurysmal infrarenal abdominal aorta. Right common iliac has an aneurysmal portion with a possible 40-50% stenosis in proximal portion. Right exertnal iliac and right common femoral arteries have mild luminal irregularities. Left common iliac has an aneurysmal portion in the proximal part. The right external iliac artery and right common femoral artery have mild luminal irregularities. Stented coronary artery (Chronic 06/21/18) ABHINAV to OM 1: 3.0 X [address] Loco @ [facility] 02/02/2012; ABHINAV to mid LAD (3.0 X 16 Promus) per Dr. Tolliver @ [facility]. Essential hypertension (Chronic) Plan - admit to PCU - consult Dr Tolliver - NPO at midnight - cycle cardiac markers - morphine, oxygen, nitro per routine protocol - LMWH for DVT prophylaxis - continue routine PO medicine while taking PO Code Visit OBSV E&M: 44230 Initial observation care L2
--- NOTE | 2018-06-28 20:12 | HP.PCM_ITS ---
Problem List (1) Atherosclerotic heart disease of [place] coronary artery without angina pectoris Status: Chronic Comment: 50-60% stenosis in mid LAD; 80% ostial stenosis of Diagonal 1, which is small. Ramus: small w/mild disease. LCX: 90% stenosis in proion in proximal part. Rt external iliac and rt common femoral have mild luminal irregularities.ximal OM1, large vessel with multiple branches. RCA: Ectatic with no significant obstructive stenosis. Abdominal aortogram: see aortic aneurysm.ABHINAV to mid LAD (3.0 X 16 Promus) per Dr. Tolliver @ [facility]. (2) Aortic aneurysm Status: Chronic Comment: Per Abdominal aortogram done during cath 02/02/2012 @ [place]: ectatic/aneurysmal infrarenal abdominal aorta. Right common iliac has an aneurysmal portion with a possible 40-50% stenosis in proximal portion. Right exertnal iliac and right common femoral arteries have mild luminal irregularities. Left common iliac has an aneurysmal portion in the proximal part. The right external iliac artery and right common femoral artery have mild luminal irregularities. (3) Stented coronary artery Status: Chronic Comment: ABHINAV to OM 1: 3.0 X [address] Loco @ [facility] 02/02/2012; ABHINAV to mid LAD (3.0 X 16 Promus) per Dr. Tolliver @ [facility]. (4) Essential hypertension Status: Chronic (5) Shortness of breath Status: Acute (6) Chest pain Status: Acute History of Present Illness Date of Admission: 06/28/18 Chief Complaint: chest pain The patient is a 68 year old male patient with known coronary artery disease presents to the ER with chest pain. The pain is substernal and associated with shortness of breath. It was reported that the patient was scheduled to have a stent placed in the near future to due coronary vessel with 70% occlusion. He has had more relief of his pain from benzodiazepine than he did from the morphine. He will be admitted for further cardiac workup and consult. His initial troponin is negative. (He has a great deal of anxiety about holding his father as he from cardiac disease) Past Medical History Past Medical History (Chronic Problems): Chronic Problems (Last Updated 06/22/18 @ 09:16 by Emily Knox) Atherosclerotic heart disease of [place] coronary artery without angina pectoris (Chronic 02/02/12) 50-60% stenosis in mid LAD; 80% ostial stenosis of Diagonal 1, which is small. Ramus: small w/mild disease. LCX: 90% stenosis in proion in proximal part. Rt external iliac and rt common femoral have mild luminal irregularities.ximal OM1, large vessel with multiple branches. RCA: Ectatic with no significant obstructive stenosis. Abdominal aortogram: see aortic aneurysm.ABHINAV to mid LAD (3.0 X 16 Promus) per Dr. Tolliver @ [facility]. Aortic aneurysm (Chronic 02/02/12) Per Abdominal aortogram done during cath 02/02/2012 @ [place]: ectatic/aneurysmal infrarenal abdominal aorta. Right common iliac has an aneurysmal portion with a possible 40-50% stenosis in proximal portion. Right exertnal iliac and right common femoral arteries have mild luminal irregularities. Left common iliac has an aneurysmal portion in the proximal part. The right external iliac artery and right common femoral artery have mild luminal irregularities. Stented coronary artery (Chronic 06/21/18) ABHINAV to OM 1: 3.0 X [address] Loco @ [facility] 02/02/2012; ABHINAV to mid LAD (3.0 X 16 Promus) per Dr. Tolliver @ [facility]. Essential hypertension (Chronic) Medical History: Medical History (Last Updated 06/22/18 @ 09:16 by Emily Knox) Abnormal stress echocardiogram (Acute) R94.39 Atherosclerotic heart disease of [place] coronary artery without angina pectoris (Chronic) Onset Date: 02/02/12 I25.10 50-60% stenosis in mid LAD; 80% ostial stenosis of Diagonal 1, which is small. Ramus: small w/mild disease. LCX: 90% stenosis in proion in proximal part. Rt external iliac and rt common femoral have mild luminal irregularities.ximal OM1, large vessel with multiple branches. RCA: Ectatic with no significant obstructive stenosis. Abdominal aortogram: see aortic aneurysm.ABHINAV to mid LAD (3.0 X 16 Promus) per Dr. Tolliver @ [facility]. Aortic aneurysm (Chronic) Onset Date: 02/02/12 I71.9 Per Abdominal aortogram done during cath 02/02/2012 @ [place]: ectatic/aneurysmal infrarenal abdominal aorta. Right common iliac has an aneurysmal portion with a possible 40-50% stenosis in proximal portion. Right exertnal iliac and right common femoral arteries have mild luminal irregularities. Left common iliac has an aneurysmal portion in the proximal part. The right external iliac artery and right common femoral artery have mild luminal irregularities. Essential hypertension (Chronic) I10 Shortness of breath (Acute) R06.02 Anxiety and depression F41.9, F32.9 BPH (benign prostatic hyperplasia) N40.0 Allergies codeine Adverse Reaction (Verified 06/28/18 16:48) High Fever Home Medications: Ambulatory Orders Medication Instructions Recorded aspirin 81 mg tablet,delayed 81 mg PO DAILY 05/31/18 release atenolol 50 mg-chlorthalidone 25 0.5 tab PO DAILY tab 05/31/18 mg tablet diazepam 2 mg tablet 2 mg PO QHS tab 05/31/18 diazepam 5 mg tablet 5 mg PO BID PRN tab 05/31/18 fluticasone 50 mcg/actuation nasal 1 spray INTRANASAL DAILY 05/31/18 spray,suspension fluticasone furoate 200 1 inh INHALATION DAILY 05/31/18 mcg/actuation blister powder for inhalation meclizine 12.5 mg tablet 12.5 mg PO TID PRN 05/31/18 sertraline 100 mg tablet 100 mg PO DAILY 05/31/18 tamsulosin 0.4 mg capsule 0.4 mg PO DAILY 05/31/18 vitamin B complex tablet 1 tab PO DAILY 05/31/18 clopidogrel 75 mg tablet 75 mg PO DAILY #30 tab 06/15/18 Isosorbide Mononitrate [Imdur] 60 mg PO DAILY #30 tablet 06/22/18 Surgical History: Surgical History (Last Updated 06/22/18 @ 09:15 by Emily Knox) Stented coronary artery (Chronic) Onset Date: 06/21/18 Z95.5 ABHINAV to OM 1: 3.0 X [address] Loco @ [facility] 02/02/2012; ABHINAV to mid LAD (3.0 X 16 Promus) per Dr. Tolliver @ [facility]. S/P sinus surgery Onset Date: 05/10/18 Z98.[address] 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 Denies: Palpitations Respiratory: Reports: Shortness of breath at rest. Denies: Cough, Sputum production Gastrointestinal: Denies: Abdominal Pain, Nausea, Vomiting Genitourinary: Denies: Dysuria Musculoskeletal: Denies: Joint Pain, Joint Tenderness Skin: Denies: Rash, Wounds Neurological: Denies: Numbness, Tingling, Focal weakness Psychiatric: Reports: Anxiety. Denies: Depression, Homicidal Ideations, Suicidal Ideations Hematologic/ Lymphatic: Denies: Easy Bruising, Easy Bleeding VTE Information - Inpt Only VTE Present on Admission: No VTE Mechan Device Prophylaxis: None VTE Pharm Prophylaxis ordered?: Yes Patient Problems: Active and Suspected Problems (Last Updated 06/22/18 @ 09:16 by Emily Knox) Chest pain (Acute) - Physical Exam General: Alert, Oriented x3, Cooperative HEENT: Atraumatic, Normocephalic Neck: Supple Lungs: Clear to auscultation, Normal air movement, No rhonchi, No rales Cardiovascular: Regular rate, Regular Rhythm, Normal S1, Normal S2, No murmurs Abdomen: Bowel Sounds Present, Soft, Non Tender Extremities: No edema, Capillary Refill Less than 3 Seconds Skin: No rashes, No breakdown Musculoskeletal: No Tenderness to Palpation of Joints or Extremities Neurological: Neuro grossly intact Psych/Mental Status: Normal Affect, Appropriate, Anxious Vital Signs Temp Pulse Resp BP Pulse Ox 97 F L 60 15 105/62 94 06/28/18 19:45 06/28/18 19:45 06/28/18 19:45 06/28/18 19:45 06/28/18 19:45 Oxygen Flow Rate (L/min) 2 Oxygen Delivery Method Room Air Weight: 265 lb 14.04 oz Body Mass Index (BMI) 38.1 Laboratory Tests Past 24 Hrs 06/28/18 06/28/18 16:55 16:55 WBC 7.7 RBC 4.39 L Hgb 13.2 Hct 40.0 MCV 91.1 MCH 30.1 MCHC 33.0 RDW 13.8 RDW Differential 45.7 H Plt Count 231 MPV 10.1 Immature Gran % (Auto) 0.400 Neut % (Auto) 62.9 Lymph % (Auto) 27.0 [place] % (Auto) 6.0 Eos % (Auto) 3.3 Baso % (Auto) 0.4 Absolute Neuts (auto) 4.8 Absolute Lymphs (auto) 2.07 Total Counted Not Reportable Sodium 137 Potassium 3.8 Chloride 104 Carbon Dioxide 27.0 Anion Gap 6 BUN 22 H Creatinine 0.83 Estim Creat Clear Calc 89.17 Est GFR (MDRD) Af Amer 119 Est GFR (MDRD) Non-Af 98 BUN/Creatinine Ratio 26.5 H Glucose 103 Calcium 8.4 L Troponin I < 0.015 Assessment/Plan All Active Problems (Last Updated 06/22/18 @ 09:16 by Emily Knox) Chest pain (Acute) Abnormal stress echocardiogram (Acute) Shortness of breath (Acute) Chronic Problems (Last Updated 06/22/18 @ 09:16 by Emily Knox) Atherosclerotic heart disease of [place] coronary artery without angina pectoris (Chronic 02/02/12) 50-60% stenosis in mid LAD; 80% ostial stenosis of Diagonal 1, which is small. Ramus: small w/mild disease. LCX: 90% stenosis in proion in proximal part. Rt external iliac and rt common femoral have mild luminal irregularities.ximal OM1, large vessel with multiple branches. RCA: Ectatic with no significant obstructive stenosis. Abdominal aortogram: see aortic aneurysm.ABHINAV to mid LAD (3.0 X 16 Promus) per Dr. Tolliver @ [facility]. Aortic aneurysm (Chronic 02/02/12) Per Abdominal aortogram done during cath 02/02/2012 @ [place]: ectatic/aneurysmal infrarenal abdominal aorta. Right common iliac has an aneurysmal portion with a possible 40-50% stenosis in proximal portion. Right exertnal iliac and right common femoral arteries have mild luminal irregularities. Left common iliac has an aneurysmal portion in the proximal part. The right external iliac artery and right common femoral artery have mild luminal irregularities. Stented coronary artery (Chronic 06/21/18) ABHINAV to OM 1: 3.0 X [address] Loco @ [facility] 02/02/2012; ABHINAV to mid LAD (3.0 X 16 Promus) per Dr. Tolliver @ [facility]. Essential hypertension (Chronic) Plan - admit to PCU - consult Dr Tolliver - NPO at midnight - cycle cardiac markers - morphine, oxygen, nitro per routine protocol - LMWH for DVT prophylaxis - continue routine PO medicine while taking PO Code Visit OBSV E&M: 05510 Initial observation care L2
--- NOTE | 2018-06-28 20:53 | EKG12_ITS ---
Test Reason : CP ADMIT Blood Pressure : / mmHG Vent. Rate : 052 BPM Atrial Rate : 052 BPM P-R Int : 154 ms QRS Dur : 102 ms QT Int : 462 ms P-R-T Axes : 012 -02 005 degrees QTc Int : 429 ms Sinus bradycardia Confirmed by DYAN TAM, ELIDIA ([id number]), television news video editor CHIO DAVEY ([id number]) on 06/30/2018 3:34:27 PM Referred By: DR JAMA Confirmed By:ELIDIA ZAIDI MD
--- NOTE | 2018-06-28 22:40 | ED.DCSUM_ITS ---
- ER Visit Summary Date of Service: 06/28/18 Chief Complaint: Chest pain History of Present Illness: The patient is a 68 M who had a heart cath last week after a several month history of shortness of breath. He had one stent placed to the LAD and is scheduled to have a stent placed in the RCA. Patient states that is supposed to be done this week. He did not know any difference in his shortness of breath after the initial stent was placed. Today while sitting at rest he developed some chest pressure that lasted 35-40 minutes. Patient states the chest pressure improved after taking a Valium and using his incentive spirometer. Physical Examination: Vital signs are unremarkable. His pulse ox is 97% on room air. Patient sitting upright in bed no acute distress. Head neck examination normal. Heart is regular rate and rhythm. Lungs sounds clear. Abdomen is soft nontender. Lower extreme examination reveals no significant edema. Test Results: EKG is sinus at 60 with no sign of acute ischemia. Portable chest x-ray shows indeterminate opacity in the right lateral lung field which may be confluence of shadows. CBC and chemistry studies normal. Troponin is less than 0.015. Emergency Department Course and Treatment: Patient was given aspirin. While in the emergency room patient developed some chest heaviness again. Repeat EKG is unchanged. Patient systolic blood pressure was only 110 at the time so nitro was not given. He was given 4 mg of morphine and 4 mg of Zofran. Nursing staff states that that made his shortness of breath worse if anything. He was then given 0.5 mg of IV Ativan and his shortness of breath significantly improved. At this time patient will be admitted for further treatment. He will be evaluated by cardiology to determine if he needs his cath sooner rather than later. Dr. Donahue and hospitalist have both been contacted. Treatment Plan: [] Disposition: Admit Impression: Chest pain This note was generated with [employer] dictation software. It may contain incorrect words, spelling, and punctuation that were not noted in review of the chart prior to signing ED Disposition - Plan for ED Patient: Disposition: Acute Care [facility] Chief Complaint: Chest Pain
[2018-06-29] VITALS (13 sets, daily range): BP systolic 102–145; BP diastolic 55–82; PULSE 53–74; RESP 13–18; TEMP 36.4–36.9; O2SAT 94–98
[2018-06-29] MEDS: 0.9% NaCl Peripheral Flush Adult/Peds IV ×3 (00:14→15:53)
[2018-06-29] MEDS: LORazepam 2 MG/ML Syringe 0.5 MG IV (00:15)
--- NOTE | 2018-06-29 02:43 | EKG12_ITS ---
Test Reason : CP Blood Pressure : / mmHG Vent. Rate : 055 BPM Atrial Rate : 055 BPM P-R Int : 164 ms QRS Dur : 092 ms QT Int : 430 ms P-R-T Axes : 021 -02 001 degrees QTc Int : 411 ms Sinus bradycardia Confirmed by DYAN TAM, ELIDIA ([id number]), supervising film or videotape editor CHIO DAVEY ([id number] on 06/30/2018 3:33:26 PM Referred By: DR JAMA Confirmed By:ELIDIA ZAIDI MD
[2018-06-29] MEDS: Morphine 2 MG/ML Syringe IV (03:01)
[2018-06-29] MEDS: Fluticasone 0.05% 1 SPRAY NASAL.SRY NASAL ×3 (03:41→21:34)
[2018-06-29 06:11] LABS: Hematocrit 42.5 % (40-54); Mean Corp Hgb Conc 32.9 g/gl (32-36); Mean Corpuscular Hgb 30.6 pg (27.0-32.0); Mean Corpuscular Volume 92.8 fL (80-94); Mean Platelet Vol. 10.5 fl (6.2-12.0); Platelet Count 226 K/mm3 (150-450); RBC Distribution Width CV 13.7 % (11.6-14.6); RBC Distribution Width SD 45.5 fl (35.1-43.9); Red Blood Count 4.58 M/mm3 (4.6-6.2); White Blood Count 6.9 K/mm3 (4.4-11.0)
[2018-06-29 06:17] LABS: Scan Indicated on CBC? Y/N NO
[2018-06-29 06:42] LABS: Anion Gap 10 (5-15); BUN 17 mg/dL (7-18); BUN/Creat Ratio 20.9 RATIO (10-20); Calcium,Total 8.7 mg/dL (8.5-10.1); Chloride 107 mmol/L (98-107); Creatinine, Serum 0.81 mg/dL (0.70-1.30); EST Glomerular Filtration Rate 101 mL/min (>60); Est Glom Filt Rate - Afr Amer 122 mL/min (>60); Estimated Creatinine Clearance 91.38 ml/min; Glucose 106 mg/dL (74-106); Potassium 3.9 mmol/L (3.5-5.1); Sodium Level 143 mmol/L (136-145); Thyroid Stim Hormone (TSH) 5.13 uIU/mL (0.358-3.74)
--- NOTE | 2018-06-29 07:29 | NURSING ---
Pt made concerning statement to the effect of, there is not sense him living if he can't breathe.
[2018-06-29] MEDS: Budesonide Respules 0.5 MG/2 ML AMPUL.NEB. INHALATION (07:41)
--- NOTE | 2018-06-29 08:57 | CT_ITS ---
STUDY: CTA CHEST REASON FOR EXAM: Male, 68 years old. Chest pain. Shortness of breath. Hypertension. History of aortic aneurysm. RADIATION DOSAGE (If Supplied By Facility): CTDIvol = ( 18.38 ) mGy, DLP = ( 771.10 ) mGycm TECHNIQUE: The examination was performed with the intravenous administration of 100 ml of Isovue 370 contrast material. Post-processing of the angiographic images was performed, with multiplanar reformation and 3D reconstruction. Individualized dose optimization techniques were used for this CT. COMPARISON: None. FINDINGS: Normal enhancement of the main pulmonary artery and right and left pulmonary arteries. Normal enhancement of the bilateral peripheral pulmonary arteries. There is no demonstrated pulmonary embolism. There is atherosclerotic calcification of the aortic arch with tortuosity. The ascending thoracic aorta is slightly dilated measuring 4.4 cm in transverse dimension. There is no demonstrated aortic dissection. There are calcifications of the coronary arteries. Normal mediastinum. Normal hilar regions. Normal visualized trachea and bronchi. The lungs are well expanded. Minimal increased markings at the right lung base suggestive of atelectasis. Normal pleura. Normal chest wall structures. There are degenerative changes of thoracic spine. Small hiatal hernia. CT/CTA Chest W/WO Contrast IMPRESSION: Minimally dilated ascending thoracic aorta with a transverse dimension of 4.4 cm. Electronically Signed: Bennie Greenfield MD at 10:41 EST Tel [phone], Service support ,
--- NOTE | 2018-06-29 09:03 | CASEMGMT ---
Insurance Review for In-Network Facilities for [facility] insurance if transfer is recommended: Thelma Javier, Silviano, and . Selwyn RODRIGUEZN RN CM
[2018-06-29] MEDS: Tamsulosin HCl 0.4 MG Capsule PO (09:11)
[2018-06-29] MEDS: Aspirin E.C. 81 MG Tablet PO (09:11)
[2018-06-29] MEDS: Chlorthalidone 50 MG Tablet 12.5 MG PO (09:14)
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
[2018-06-29] MEDS: Enoxaparin 40 MG/0.4 ML Syringe SC (09:17)
[2018-06-29] MEDS: Clopidogrel Bisulfate 75 MG Tablet PO (09:18)
--- NOTE | 2018-06-29 09:22 | CON.PCM_ITS ---
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 Ramus: small w/mild disease. LCX: 90% stenosis in proion in proximal part. Rt external iliac and rt common femoral have mild luminal irregularities.ximal OM1, large vessel with multiple branches. RCA: Ectatic with no significant obstructive stenosis. Abdominal aortogram: see aortic aneurysm.ABHINAV to mid LAD (3.0 X 16 Promus) per Dr. Tolliver @ [facility]. (4) Aortic aneurysm Status: Chronic Comment: Per Abdominal aortogram done during cath 02/02/2012 @ [facility]: ectatic/aneurysmal infrarenal abdominal aorta. Right common iliac has an aneurysmal portion with a possible 40-50% stenosis in proximal portion. Right exertnal iliac and right common femoral arteries have mild luminal ir regularities. Left common iliac has an aneurysmal portion in the proximal part. The right external iliac artery and right common femoral artery have mild luminal irregularities. (5) Stented coronary artery Status: Chronic Comment: ABHINAV to OM 1: 3.0 X [address] Loco @ [facility] 02/02/2012; ABHINAV to mid LAD (3.0 X 16 Promus) per Dr. Tolliver @ [facility]. (6) Essential hypertension Status: Chronic (7) Shortness of breath Status: Acute Reason for Consult Date of Consultation: 06/29/18 Reason for Consultation: Unstable angina, shortness of breath, anxiety, bradly pheral vascular disease, hypertension, hypercholesterolemia, reactive airway disease. History of Present Illness: KIRIT MCGUIRE, is a 68 M former smoker who quit around 6 years ago after a [id number] smoking history, sees Dr. Roach for pulmonary, who initially presented to our office on 06/01/18 in consultation for shortness of breath and dyspnea on exertion which apparently has been going on for several months. Patient has a known history of coronary artery disease status post catheterization and angioplasty in 02/02/12 at [facility]. At that time he was found to have mild luminal irregularities of his proximal LAD, a 50-60% stenosis in his mid LAD and 80% ostial stenosis of diagonal #1 which was a small vessel. His ramus intermedius was small with mild disease, and a 90% stenosis of the proximal part of the obtuse marginal was noted. His RCA had nonobstructive coronary disease. He underwent successful angioplasty and drug- eluting stenting of the obtuse marginal #1 receiving a 3.0 x 16 Promus element stent. 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 At that time he had left-sided chest pain and shortness of breath. Subsequent to that, the patient underwent an bilateral aorto iliac stent grafting. Patient recently visited the emergency room on 05/06/18 with a chief complaint of dyspnea on exertion. Pulmonary workup including an EKG which was negative as well as a chest x-ray which was negative. He was referred to us for his symptoms. In addition the patient apparently has possibly obstructive sleep apnea, but has not been fully evaluated as the patient developed anxiety during his last sleep study. Patient apparently underwent pulmonary function test in Dr. Roach's office several months ago and reportedly had no evidence of emphysema per the patient however we are trying to get those results. Patient is tried MDIs to correct his dyspnea which have not improved things. He does have oxygen containers at home, and periodically uses them. His story started about 3 months ago when he began developing significant shortness of breath. His initial episode occurred after he was eating breakfast at a kitchen table, try to get up and was profoundly weak, had trouble breathing, could not take a deep breath in. Patient fell to the floor and remained on the floor for about 25 minutes unable to move. Despite this impressive event, he did not seek medical attention until later on. Apparently he saw a neurologist in [place], had a CT scan which showed no acute stroke, and apparently has had difficulty breathing ever since. He described as if someone had knocked the wind out of him. He has never had a diaphragmatic stimulation test and has no history in his family of muscular skeletal or neurological diseases. Since that time patient has had progressively worsening dyspnea on exertion and shortness of breath which he describes as inability to take a deep breath in despite his brain commanding his diaphragm to inhale. He is taking and tolerating his medicines well he denies any exertional chest pain symptoms. Patient recently underwent a treadmill echocardiogram in which he went about 6 minutes, had a hyperdynamic LV response to exercise with an EF of 75%, and had no overt ischemia by echocardiogram. Given his severe dyspnea on exertion he underwent left heart catheterization about 2 weeks ago which demonstrated significant progression of his mid LAD stenosis. Patient underwent successful angioplasty and stenting of his LAD. At that time he was also found to have possibly significant proximal RCA stenosis. He was scheduled to return next week for FFR evaluation and possible stenting of same. Despite the stenting of his LAD the patient guarded no benefit with respect to shortness of breath in particular recumbent dyspnea. The patient states that he is unable to lay down flat as he feels he cannot get enough air. When I asked him whether he can inflate his diaphragm to the maximum, he reports that he just cannot breathe with the same repetition that he used to. He has never had a CT scan. In addition when he gets short of breath and anxious he developed substernal chest pain as well. He reported to the emergency room last night and his EKG showed sinus bradycardia with no acute changes. His troponins have been negative x3. [] Past Medical History Allergies/Adverse Reactions: Allergies codeine Adverse Reaction (Verified 06/28/18 16:48) High Fever Home Medications: Ambulatory Orders Medication Instructions Recorded aspirin 81 mg tablet,delayed 81 mg PO DAILY 05/31/18 release atenolol 50 mg-chlorthalidone 25 0.5 tab PO DAILY tab 05/31/18 mg tablet diazepam 5 mg tablet 5 mg PO BID PRN tab 05/31/18 tamsulosin 0.4 mg capsule 8 mg PO QHS 05/31/18 clopidogrel 75 mg tablet 75 mg PO DAILY #30 tab 06/15/18 Isosorbide Mononitrate [Imdur] 60 mg PO DAILY #30 tablet 06/22/18 Oxymetazoline HCl [12 Hour Nasal 2 spray NASAL TID 06/28/18 Relief] Diazepam 2 mg PO QHS 06/29/18 Fluticasone Furoate 1 spray NASAL QODAY 06/29/18 Levofloxacin 1 tablet PO QODAY 06/29/18 Meclizine HCl 1 tablet PO TID 06/29/18 Sertraline HCl [Zoloft] 1 tablet PO QODAY 06/29/18 Vitamin B Complex 1 tablet PO QODAY 06/29/18 Past Medical History (Chronic Problems): Chronic Problems (Last Updated 06/22/18 @ 09:16 by Emily Knox) 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 Ramus: small w/mild disease. LCX: 90% stenosis in proion in proximal part. Rt external iliac and rt common femoral have mild luminal irregularities.ximal OM1, large vessel with multiple branches. RCA: Ectatic with no significant obstructive stenosis. Abdominal aortogram: see aortic aneurysm.ABHINAV to mid LAD (3.0 X 16 Promus) per Dr. Tolliver @ [facility]. Aortic aneurysm (Chronic 02/02/12) Per Abdominal aortogram done during cath 02/02/2012 @ [facility]: ectatic/aneurysmal infrarenal abdominal aorta. Right common iliac has an aneurysmal portion with a possible 40-50% stenosis in proximal portion. Right exertnal iliac and right common femoral arteries have mild luminal irregularities. Left common iliac has an aneurysmal portion in the proximal part. The right external iliac artery and right common femoral artery have mild luminal irregularities. Stented coronary artery (Chronic 06/21/18) ABHINAV to OM 1: 3.0 X [address] Loco @ [facility] 02/02/2012; ABHINAV to mid LAD (3.0 X 16 Promus) per Dr. Tolliver @ [facility]. 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 Denies: PND, Peripheral Edema, Palpitations, Lightheadedness, Dizziness, Near Syncope, Syncope Respiratory: Denies: Cough, Sputum Production, Hemoptysis Gastrointestinal: Denies: Hematemesis, Hematochezia, Melena Genitourinary: Denies: Dysuria, Hematuria Skin: Denies: Rash Subjectve: Patient sitting up in bed, on oxygen, no acute distress. Objective: Vital Signs Temp Pulse Resp BP Pulse Ox 98.4 F 56 L 17 142/82 H 97 06/29/18 08:22 06/29/18 08:22 06/29/18 08:22 06/29/18 08:22 06/29/18 08:22 Oxygen Flow Rate (L/min) 2 Oxygen Delivery Method Nasal Cannula Weight: 264 lb 12.403 oz Body Mass Index (BMI) 38.0 Intake and Output for Last 24 Hours 06/27/18 06/28/18 06/29/18 23:59 23:59 23:59 Intake Total 257 / 257 Output Total 900 / 900 1075 / 1075 Balance -643 / -643 -1055 / -1055 General: Awake, Alert, Oriented x 3 HEENT: PERRL, EOMI, Sclera Non Icteric Neck: Supple, Good ROM, No Lymph Node Enlargement Lungs: Clear to auscultation Cardiovascular: Regular Rhythm, Normal S1, Normal S2, No Murmurs, No Rubs, No Gallops Vascular: No Carotid Bruits, Normal Femoral Pulses, Normal Radial Pulses, Normal Dorsalis Pedal Pulse, Normal Posterior Tibial Pulses Abdomen: Bowel Sounds Present, Soft, Non Tender, No HSM, No Organomegaly Extremities: No Cyanosis, No Clubbing, No edema Neurological: No Focal Motor or Sensory Deficit 06/28/18 16:55: WBC 7.7, RBC 4.39 L, Hgb 13.2, Hct 40.0, MCV 91.1, MCH 30.1, MCHC 33.0, RDW 13.8, RDW Differential 45.7 H, Plt Count 231, MPV 10.1, Immature Gran % (Auto) 0.400, Neut % (Auto) 62.9, Lymph % (Auto) 27.0, [place] % (Auto) 6.0, Eos % (Auto) 3.3, Baso % (Auto) 0.4, Absolute Neuts (auto) 4.8, Total Counted Not Reportable 06/28/18 16:55: Sodium 137, Potassium 3.8, Chloride 104, Carbon Dioxide 27.0, Anion Gap 6, BUN 22 H, Creatinine 0.83, Est GFR (MDRD) Af Amer 119, Est GFR (MDRD) Non-Af 98, BUN/Creatinine Ratio 26.5 H, Glucose 103, Calcium 8.4 L, Troponin I < 0.015 06/28/18 21:13: Troponin I < 0.015 06/28/18 23:22: Troponin I < 0.015 06/29/18 02:17: Troponin I < 0.015 06/29/18 05:40: Sodium 143, Potassium 3.9, Chloride 107, Carbon Dioxide 26.0, Anion Gap 10, BUN 17, Creatinine 0.81, Est GFR (MDRD) Af Amer 122, Est GFR (MDRD) Non-Af 101, BUN/Creatinine Ratio 20.9 H, Glucose 106, Calcium 8.7 06/29/18 05:40: WBC 6.9, RBC 4.58 L, Hgb 14.0, Hct 42.5, MCV 92.8, MCH 30.6, MCHC 32.9, RDW 13.7, RDW Differential 45.5 H, Plt Count 226, MPV 10.5 Rhythm: EKG: Sinus bradycardia, no acute changes. ECHO: 06/09/18 The estimated ejection fraction is 65 %. Stage 1 diastolic dysfunction. Trivial mitral valve insufficiency. Trivial tricuspid valve insufficiency. Right ventricular systolic pressure estimated to be 26 mmHg. There is no comparison study available. Stress Test: As above Cardiac Cath: As above PCI: CT Surgery: Holter monitor: EPS: PPM: CXR: Chest CT Scan: Assessment/Plan 1. Dyspnea: Patient has multiple possibilities for his dyspnea including underappreciated COPD given his greater than 60-oply-wapi smoking history, diaphragmatic dysfunction or flattening of his diaphragm due to chronic hyperinflation, possible undiagnosed pulmonary embolism, side effect from his beta-oneal causing bronchospasm, or coronary artery disease. To help differentiate the possible diagnoses, I recommended he undergo a CTA of his chest to evaluate whether he may have had a undiagnosed pulmonary embolism, as well as to assess the parenchyma of his lung. In addition we will try and get his pulmonary function test from Dr. Roach's office. Also recommended a pulmonary consultation with Dr. Prasad Ross to help evaluate whether or not he requires different medications for his pulmonary issues. Patient may require a 6-minute walk test or diaphragmatic stimulation test to determine if he has any diaphragmatic issues. His symptoms sound more pulmonary rather than cardiac however he does have known intrinsic coronary artery disease. He apparently garnered no pulmonary benefit from his recent angioplasty and stenting of his LAD and he has a planned FFR evaluation of his proximal RCA moved up from next week to tomorrow morning given his recurrent chest pain symptoms. Of also recommended he discontinue his atenolol as this may be producing bronchospasm and switching him to Bystolic 2.5 mg daily. 2. Coronary artery disease: Patient is scheduled for FFR evaluation of his proximal RCA tomorrow morning. He will require a long sheath to negotiate his aortoiliac disease and previous aortoiliac stenting. If his FFR is even closely abnormal I would recommend percutaneous intervention to remove coronary ischemia from contributing to his dyspnea. 3. Neurological abnormalities: A proximally 3 months ago, the patient apparently got up from a sitting position and then fell to the floor profoundly weak for unknown reasons. He reportedly had a CAT scan done by an outside facility in [place] and saw a neurologist. According to the patient he laid akhil onless for approximately 25 minutes on the floor and may have some neurological issues that require further investigation by a neurologist. Apparently the patient may have also some psychosomatic issues as apparently he was traumatized by holding his father as he was dying of cardiac failure. This may require psychiatric assistance. 4. Hyperlipidemia: Continue antilipid therapy. Will repeat lipid profile after cardiac rehab is been completed. 5. Thank you very much for the opportunity to participate in the cardiac care of your patient. Consultation time took place between 845 and 9:30 AM. Code Visit Inpatient E&M: 70475 Init Hosp L2
[2018-06-29] MEDS: Isosorbide Mononitrate 60 MG Tablet PO (09:33)
--- NOTE | 2018-06-29 14:23 | PCM.PROGNOTE ---
<Diana Jones - Last Filed: 06/29/18 14:35> Patient Problems: Active and Suspected Problems (Last Updated 06/22/18 @ 09:16 by Emily Knox) Chest pain (Acute) Subjective: Patient seen and examined. Continues to complain of intermittent chest discomfort. Denies current shortness of breath. Patient reports depression and anxiety. He states he is mad at the world. He reports not being able to participate in hobbies due to health conditions. Denies other current specific complaints. - Physical Exam General: Alert, Oriented x3, Cooperative HEENT: Atraumatic, PERRLA, EOMI, Normocephalic Neck: Supple, No JVD, Negative Carotid Bruits Lungs: Clear to auscultation, Normal air movement Cardiovascular: Regular rate, Regular Rhythm, Normal S1, Normal S2, No murmurs Abdomen: Bowel Sounds Present, Soft, Non Tender, Non-Distended Extremities: No clubbing, No cyanosis, No edema, Capillary Refill Less than 3 Seconds Skin: No rashes, No breakdown Musculoskeletal: No Tenderness to Palpation of Joints or Extremities Neurological: Cranial nerves II-XII grossly intact, Neuro grossly intact Psych/Mental Status: Normal Affect, Appropriate Vital Signs Temp Pulse Resp BP Pulse Ox 98.4 F 62 17 142/82 H 97 06/29/18 08:22 06/29/18 11:14 06/29/18 08:22 06/29/18 08:22 06/29/18 08:22 Oxygen Flow Rate (L/min) 2 Oxygen Delivery Method Nasal Cannula Weight: 264 lb 12.403 oz Body Mass Index (BMI) 38.0 Intake and Output for Last 24 Hours 06/27/18 06/28/18 06/29/18 23:59 23:59 23:59 Intake Total 257 / 257 110 / 110 Output Total 900 / 900 1375 / 1375 Balance -643 / -643 -1265 / -1265 Laboratory Tests Past 24 Hrs 06/28/18 06/28/18 06/28/18 16:55 16:55 21:13 WBC 7.7 RBC 4.39 L Hgb 13.2 Hct 40.0 MCV 91.1 MCH 30.1 MCHC 33.0 RDW 13.8 RDW Differential 45.7 H Plt Count 231 MPV 10.1 Immature Gran % (Auto) 0.400 Neut % (Auto) 62.9 Lymph % (Auto) 27.0 [place] % (Auto) 6.0 Eos % (Auto) 3.3 Baso % (Auto) 0.4 Absolute Neuts (auto) 4.8 Absolute Lymphs (auto) 2.07 Total Counted Not Reportable Sodium 137 Potassium 3.8 Chloride 104 Carbon Dioxide 27.0 Anion Gap 6 BUN 22 H Creatinine 0.83 Estim Creat Clear Calc 89.17 Est GFR (MDRD) Af Amer 119 Est GFR (MDRD) Non-Af 98 BUN/Creatinine Ratio 26.5 H Glucose 103 Calcium 8.4 L Troponin I < 0.015 < 0.015 TSH 06/28/18 06/29/18 06/29/18 23:22 02:17 05:40 WBC RBC Hgb Hct MCV MCH MCHC RDW RDW Differential Plt Count MPV Immature Gran % (Auto) Neut % (Auto) Lymph % (Auto) [place] % (Auto) Eos % (Auto) Baso % (Auto) Absolute Neuts (auto) Absolute Lymphs (auto) Total Counted Sodium 143 Potassium 3.9 Chloride 107 Carbon Dioxide 26.0 Anion Gap 10 BUN 17 Creatinine 0.81 Estim Creat Clear Calc 91.38 Est GFR (MDRD) Af Amer 122 Est GFR (MDRD) Non-Af 101 BUN/Creatinine Ratio 20.9 H Glucose 106 Calcium 8.7 Troponin I < 0.015 < 0.015 TSH 5.13 H 06/29/18 05:40 WBC 6.9 RBC 4.58 L Hgb 14.0 Hct 42.5 MCV 92.8 MCH 30.6 MCHC 32.9 RDW 13.7 RDW Differential 45.5 H Plt Count 226 MPV 10.5 Immature Gran % (Auto) Neut % (Auto) Lymph % (Auto) [place] % (Auto) Eos % (Auto) Baso % (Auto) Absolute Neuts (auto) Absolute Lymphs (auto) Total Counted Sodium Potassium Chloride Carbon Dioxide Anion Gap BUN Creatinine Estim Creat Clear Calc Est GFR (MDRD) Af Amer Est GFR (MDRD) Non-Af BUN/Creatinine Ratio Glucose Calcium Troponin I TSH Medical Necessity - Tobacco Use Smoking Status: Former smoker Tobacco Use: Cigarettes Assessment/Plan All Active Problems (Last Updated 06/22/18 @ 09:16 by Emily Knox) Chest pain (Acute) Abnormal stress echocardiogram (Acute) Shortness of breath (Acute) 1. Chest pain-cardiology following. Plan for FFR evaluation of proximal RCA tomorrow morning. Troponin negative. Continue aspirin, Plavix. Not on statin. Recent lipid panel within normal limits. 2. Dyspnea on exertion-this is reported to be ongoing. He has been seeing Dr. Roach, pulmonary medicine with recent normal PFTs. Pulmonary medicine consulted. Chest CTA with minimally dilated ascending thoracic aorta with a transverse dimension of 4.4 cm. Small hiatal hernia. Otherwise no pulmonary abnormalities. 3. CAD status post PCI-Follows with Dr. Tolliver. Continue aspirin, Plavix, beta-oneal. Does not appear to be on statin. 4. Hypertension-stable, continue home atenolol, isosorbide regimen. 5. Anxiety/depression-poorly controlled. Continue home diazepam, sertraline regimen. Recommend outpatient follow-up with counseling. 6. BPH-continue home tamsulosin regimen. 7. Unclear recent neurologic events-patient complains of episodes of intermittent weakness which instability occur at rest. He was evaluated by a neurologist in [facility] and was reported to have a normal CT of brain. Attempt to obtain these records. DVT prophylaxis- Lovenox This patient was seen by JUAN M Wren under the supervision of Dr. Ramirez. <Earl Ramirez F - Last Filed: 06/29/18 15:47> - Physical Exam Vital Signs Temp Pulse Resp BP Pulse Ox 98.4 F 62 17 142/82 H 97 06/29/18 08:22 06/29/18 11:14 06/29/18 08:22 06/29/18 08:22 06/29/18 08:22 Oxygen Flow Rate (L/min) 2 Oxygen Delivery Method Nasal Cannula Weight: 264 lb 12.403 oz Body Mass Index (BMI) 38.0 Intake and Output for Last 24 Hours 06/27/18 06/28/18 06/29/18 23:59 23:59 23:59 Intake Total 257 / 257 110 / 110 Output Total 900 / 900 1375 / 1375 Balance -643 / -643 -1265 / -1265 Laboratory Tests Past 24 Hrs 06/28/18 06/28/18 06/28/18 16:55 16:55 21:13 WBC 7.7 RBC 4.39 L Hgb 13.2 Hct 40.0 MCV 91.1 MCH 30.1 MCHC 33.0 RDW 13.8 RDW Differential 45.7 H Plt Count 231 MPV 10.1 Immature Gran % (Auto) 0.400 Neut % (Auto) 62.9 Lymph % (Auto) 27.0 [place] % (Auto) 6.0 Eos % (Auto) 3.3 Baso % (Auto) 0.4 Absolute Neuts (auto) 4.8 Absolute Lymphs (auto) 2.07 Total Counted Not Reportable Sodium 137 Potassium 3.8 Chloride 104 Carbon Dioxide 27.0 Anion Gap 6 BUN 22 H Creatinine 0.83 Estim Creat Clear Calc 89.17 Est GFR (MDRD) Af Amer 119 Est GFR (MDRD) Non-Af 98 BUN/Creatinine Ratio 26.5 H Glucose 103 Calcium 8.4 L Troponin I < 0.015 < 0.015 TSH 06/28/18 06/29/18 06/29/18 23:22 02:17 05:40 WBC RBC Hgb Hct MCV MCH MCHC RDW RDW Differential Plt Count MPV Immature Gran % (Auto) Neut % (Auto) Lymph % (Auto) [place] % (Auto) Eos % (Auto) Baso % (Auto) Absolute Neuts (auto) Absolute Lymphs (auto) Total Counted Sodium 143 Potassium 3.9 Chloride 107 Carbon Dioxide 26.0 Anion Gap 10 BUN 17 Creatinine 0.81 Estim Creat Clear Calc 91.38 Est GFR (MDRD) Af Amer 122 Est GFR (MDRD) Non-Af 101 BUN/Creatinine Ratio 20.9 H Glucose 106 Calcium 8.7 Troponin I < 0.015 < 0.015 TSH 5.13 H 06/29/18 05:40 WBC 6.9 RBC 4.58 L Hgb 14.0 Hct 42.5 MCV 92.8 MCH 30.6 MCHC 32.9 RDW 13.7 RDW Differential 45.5 H Plt Count 226 MPV 10.5 Immature Gran % (Auto) Neut % (Auto) Lymph % (Auto) [place] % (Auto) Eos % (Auto) Baso % (Auto) Absolute Neuts (auto) Absolute Lymphs (auto) Total Counted Sodium Potassium Chloride Carbon Dioxide Anion Gap BUN Creatinine Estim Creat Clear Calc Est GFR (MDRD) Af Amer Est GFR (MDRD) Non-Af BUN/Creatinine Ratio Glucose Calcium Troponin I TSH Code Visit Addendum: Dr. Ramirez I personally examined the patient and reviewed the chart. I agree with the above. 68-year-old male with coronary artery disease presenting with repeated episodes of chest pain and shortness of breath. There is also some question of whether or not he has a pulmonary component to this as he had recent PFTs that he states were normal. A CTA was obtained today which was negative for any PE or findings of pulmonary fibrosis, however pulmonology is consulted to assist with further management. He was supposed to have an FFR done of his RCA next week which was brought up to tomorrow, so the plan is for cath in the a.m. and depending on outcome of the cath will dictate further treatment. OBSV E&M: 14356 Initial observation care L2
--- NOTE | 2018-06-29 15:05 | CON.PCM_ITS ---
Problem List (1) Shortness of breath Status: Acute Reason for Consult Date of Consultation: 06/29/18 - Shortness of breath, possible PE History of Present Illness: The patient is a 68 year old M who presented to the emergency department on June 28, 2018 with complaints of shortness of breath. He reports that not only is he complaining of shortness of breath but he also has associated substernal chest pain. He was treated in the emergency department with morphine and later Ativan. According to documentation it appears as though the Ativan was more helpful in relieving his shortness of breath and substernal chest pain than the morphine. Vital signs were fairly stable with the exception of slight hypertension. Initial laboratories were reviewed and found to be noncontributory. CTA of the chest was completed on June 29, 2018 and was negative for pulmonary embolism, did document right base atelectasis. The patient reports that the shortness of breath has been troublesome for the past 4 months. The episodes occur anywhere from 3-6 times daily, lasting from 15-20 minutes at a time. The shortness of breath comes on suddenly, no triggers can be identified. The patient reports that once the shortness of breath has been realized he becomes very anxious and symptoms progress. Typically this episode comes on when he is at a resting state. Alleviating factors that he has noticed are effective R meditation, yoga, exercise (push-ups), breathing exercises, the use of his incentive spirometer, and most often he states that the most effective treatment is distraction. He has tried albuterol nebulizer and has found that it has not helped his symptoms at all. When the episodes occur he describes them as feeling like his head is being held under water and he cannot get a deep breath. He reports some associated light pain in the left side of his chest, he points to the area of the heart. He also reports occasionally some light pain to his right back area. He describes them as 2 separate pains, not a radiating pain. He does report that approximately 4 months ago he experienced a sudden dull weakness that resulted in him ending up on the floor. At the time he was sitting on his couch eating a bowl of cereal at approximately 2 AM. When this dull weakness occurred he ended up on the floor. He lost all his ability to speak. After several minutes he was able to get out a squeak that awakened his . She reports that when she found him he was cold and clammy. She cleaned him up with some bath towels. They did not seek immediate attention, at some point did follow up with primary care which resulted in a pretty thorough workup. He did have a pulmonary function test regarding the shortness of breath which he reports showed possible asthma. He also reports that he was seen by neurology regarding this dull weakness, denies that he was diagnosed with CVA, TIA or even migraine. After several minutes of this dull weakness he did regain 100% of his strength and complete speech back. He does report over the past week he has been using his incentive spirometer anywhere between 15-20 times per day. He states that he is able to pull the device completely to the top with each breath. He smoked 2-1/2 packs a day of cigarettes for approximately 27 years, quitting totally 5 years ago. He did have a brief time when he used smokeless tobacco to quit smoking he denies any illicit drug use. He has not had any alcohol in the past 10 years. 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 Ramus: small w/mild disease. LCX: 90% stenosis in proion in proximal part. Rt external iliac and rt common femoral have mild luminal irregularities.ximal OM1, large vessel with multiple branches. RCA: Ectatic with no significant obstructive stenosis. Abdominal aortogram: see aortic aneurysm.ABHINAV to mid LAD (3.0 X 16 Promus) per Dr. Tolliver @ [facility]. Aortic aneurysm (Chronic 02/02/12) Per Abdominal aortogram done during cath 02/02/2012 @ [place]: ectatic/aneurysmal infrarenal abdominal aorta. Right common iliac has an aneurysmal portion with a possible 40-50% stenosis in proximal portion. Right exertnal iliac and right common femoral arteries have mild luminal irregularities. Left common iliac has an aneurysmal portion in the proximal part. The right external iliac artery and right common femoral artery have mild luminal irregularities. Stented coronary artery (Chronic 06/21/18) ABHINAV to OM 1: 3.0 X [address] Loco @ [facility] 02/02/2012; ABHINAV to mid LAD (3.0 X 16 Promus) per Dr. Tolliver @ [facility]. Essential hypertension (Chronic) Medical History: Medical History (Last Updated 06/22/18 @ 09:16 by Emily Knox) Abnormal stress echocardiogram (Acute) R94.39 Atherosclerotic heart disease of burns pai[place] coronary artery without angina pectoris (Chronic) Onset Date: 02/02/12 I25.10 50-60% stenosis in mid LAD; 80% ostial stenosis of Diagonal 1, which is small. Ramus: small w/mild disease. LCX: 90% stenosis in proion in proximal part. Rt external iliac and rt common femoral have mild luminal irregularities.ximal OM1, large vessel with multiple branches. RCA: Ectatic with no significant obstructive stenosis. Abdominal aortogram: see aortic aneurysm.ABHINAV to mid LAD (3.0 X 16 Promus) per Dr. Tolliver @ [facility]. Aortic aneurysm (Chronic) Onset Date: 02/02/12 I71.9 Per Abdominal aortogram done during cath 02/02/2012 @ [place]: ectatic/aneurysmal infrarenal abdominal aorta. Right common iliac has an aneurysmal portion with a possible 40-50% stenosis in proximal portion. Right exertnal iliac and right common femoral arteries have mild luminal irregularities. Left common iliac has an aneurysmal portion in the proximal part. The right external iliac artery and right common femoral artery have mild luminal irregularities. Essential hypertension (Chronic) I10 Shortness of breath (Acute) R06.02 Anxiety and depression F41.9, F32.9 BPH (benign prostatic hyperplasia) N40.0 Allergies codeine Adverse Reaction (Verified 06/28/18 16:48) High Fever Home Medications: Ambulatory Orders Medication Instructions Recorded aspirin 81 mg tablet,delayed 81 mg PO DAILY 05/31/18 release atenolol 50 mg-chlorthalidone 25 0.5 tab PO DAILY tab 05/31/18 mg tablet diazepam 5 mg tablet 5 mg PO BID PRN tab 05/31/18 tamsulosin 0.4 mg capsule 8 mg PO QHS 05/31/18 clopidogrel 75 mg tablet 75 mg PO DAILY #30 tab 06/15/18 Isosorbide Mononitrate [Imdur] 60 mg PO DAILY #30 tablet 06/22/18 Oxymetazoline HCl [12 Hour Nasal 2 spray NASAL TID 06/28/18 Relief] Diazepam 2 mg PO QHS 06/29/18 Fluticasone Furoate 1 spray NASAL QODAY 06/29/18 Levofloxacin 1 tablet PO QODAY 06/29/18 Meclizine HCl 1 tablet PO TID 06/29/18 Sertraline HCl [Zoloft] 1 tablet PO QODAY 06/29/18 Vitamin B Complex 1 tablet PO QODAY 06/29/18 Surgical History: Surgical History (Last Updated 06/22/18 @ 09:15 by Emily Knox) Stented coronary artery (Chronic) Onset Date: 06/21/18 Z95.5 ABHINAV to OM 1: 3.0 X [address] Loco @ [facility] 02/02/2012; ABHINAV to mid LAD (3.0 X 16 Promus) per Dr. Tolliver @ [facility]. S/P sinus surgery Onset Date: 05/10/18 Z98.[address] 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 Denies: Orthopnea, Palpi tations Respiratory: Reports: Pleuritic Pain, Shortness of Breath, Shortness of breath at rest. Denies: Cough, Hemoptysis, Shortness of breath upon exertion, Sputum production, Wheezing Gastrointestinal: Denies: Abdominal Pain, Constipation Genitourinary: Denies: Dysuria Musculoskeletal: Denies: Arm Pain Skin: Denies: Dryness Neurological: Denies: Balance problems, Change in Speech, Slurred speech, Difficulty swallowing, Headaches, Incoordination, Numbness, Tingling Psychiatric: Reports: Anxiety Endocrine: Denies: Change in Body Habitus Hematologic/ Lymphatic: Denies: Adenopathy, Anemia Patient Problems: Active and Suspected Problems (Last Updated 06/22/18 @ 09:16 by Emily Knox) Chest pain (Acute) Subjective: Patient reports that he was having 1 of his episodes when I entered the hospital room today. He was complaining of shortness of breath and substernal chest discomfort. As the exam and interview pursued the shortness of breath and chest discomfort completely resolved within a few minutes. He states that the distraction from the interview relieved his anxiety and symptoms. - Physical Exam General: Alert, Oriented x3, Cooperative, No apparent distress HEENT: Atraumatic Oral: Moist Mucosa Neck: Supple, No Nodes, Trachea Midline Lungs: Clear to auscultation, Normal air movement, No rhonchi, No wheeze, No rales Cardiovascular: Regular rate, Regular Rhythm, Normal S1, Normal S2, No murmurs Extremities: No clubbing, No cyanosis, No edema, Capillary Refill Less than 3 Seconds Skin: No rashes Musculoskeletal: No Tenderness to Palpation of Joints or Extremities, No Muscle Wasting Lymphatic: No Cervical, Supraclavicular, or Inguinal Adenopathy Neurological: Cranial nerves II-XII grossly intact, Neuro grossly intact, Motor Exam 5/5 strength throughout Psych/Mental Status: Anxious Vital Signs Temp Pulse Resp BP Pulse Ox 98.4 F 62 17 142/82 H 97 06/29/18 08:22 06/29/18 11:14 06/29/18 08:22 06/29/18 08:22 06/29/18 08:22 Oxygen Flow Rate (L/min) 2 Oxygen Delivery Method Nasal Cannula Weight: 264 lb 12.403 oz Body Mass Index (BMI) 38.0 Intake and Output for Last 24 Hours 06/27/18 06/28/18 06/29/18 23:59 23:59 23:59 Intake Total 257 / 257 110 / 110 Output Total 900 / 900 1375 / 1375 Balance -643 / -643 -1265 / -1265 Laboratory Tests Past 24 Hrs 06/28/18 06/28/18 06/28/18 16:55 16:55 21:13 WBC 7.7 RBC 4.39 L Hgb 13.2 Hct 40.0 MCV 91.1 MCH 30.1 MCHC 33.0 RDW 13.8 RDW Differential 45.7 H Plt Count 231 MPV 10.1 Immature Gran % (Auto) 0.400 Neut % (Auto) 62.9 Lymph % (Auto) 27.0 [place] % (Auto) 6.0 Eos % (Auto) 3.3 Baso % (Auto) 0.4 Absolute Neuts (auto) 4.8 Absolute Lymphs (auto) 2.07 Total Counted Not Reportable Sodium 137 Potassium 3.8 Chloride 104 Carbon Dioxide 27.0 Anion Gap 6 BUN 22 H Creatinine 0.83 Estim Creat Clear Calc 89.17 Est GFR (MDRD) Af Amer 119 Est GFR (MDRD) Non-Af 98 BUN/Creatinine Ratio 26.5 H Glucose 103 Calcium 8.4 L Troponin I < 0.015 < 0.015 TSH 06/28/18 06/29/18 06/29/18 23:22 02:17 05:40 WBC RBC Hgb Hct MCV MCH MCHC RDW RDW Differential Plt Count MPV Immature Gran % (Auto) Neut % (Auto) Lymph % (Auto) [place] % (Auto) Eos % (Auto) Baso % (Auto) Absolute Neuts (auto) Absolute Lymphs (auto) Total Counted Sodium 143 Potassium 3.9 Chloride 107 Carbon Dioxide 26.0 Anion Gap 10 BUN 17 Creatinine 0.81 Estim Creat Clear Calc 91.38 Est GFR (MDRD) Af Amer 122 Est GFR (MDRD) Non-Af 101 BUN/Creatinine Ratio 20.9 H Glucose 106 Calcium 8.7 Troponin I < 0.015 < 0.015 TSH 5.13 H 06/29/18 05:40 WBC 6.9 RBC 4.58 L Hgb 14.0 Hct 42.5 MCV 92.8 MCH 30.6 MCHC 32.9 RDW 13.7 RDW Differential 45.5 H Plt Count 226 MPV 10.5 Immature Gran % (Auto) Neut % (Auto) Lymph % (Auto) [place] % (Auto) Eos % (Auto) Baso % (Auto) Absolute Neuts (auto) Absolute Lymphs (auto) Total Counted Sodium Potassium Chloride Carbon Dioxide Anion Gap BUN Creatinine Estim Creat Clear Calc Est GFR (MDRD) Af Amer Est GFR (MDRD) Non-Af BUN/Creatinine Ratio Glucose Calcium Troponin I TSH Assessment/Plan All Active Problems (Last Updated 06/22/18 @ 09:16 by Emily Knox) Chest pain (Acute) Abnormal stress echocardiogram (Acute) Shortness of breath (Acute) RECOMMENDATIONS: 1. Obtain a copy of patient's pulmonary function test from Dr. Roach's office 2. Continue supplemental oxygen as needed to maintain saturations 89-92% 3. Continue albuterol nebulizer every 4 hours as needed for shortness of breath or wheezing 4. Continue budesonide by nebulizer for now 5. Incentive spirometer every 2 hours while awake 1. Short of breath: Is of unclear etiology at this time. Possible diagnoses include vocal cord dysfunction, asthma, anxiety disorder. Need to review pulmonary function testing. If indicated patient may require further workup by ENT with regard to possible vocal cord dysfunction. If vocal cord dysfunction is determined to be the cause, biofeedback would be appropriate. Continue meditation and breathing techniques as the patient has been performing to alleviate his shortness of breath in the meantime. Follow-up in the outpatient setting for further workup. 2. Substernal chest pain: Question if this may be related to CAD and pending stent placement. It is possible that the chest pain is then eliciting anxiety and shortness of breath. Defer management to cardiology. 3. Anxiety: Consider treatment with antidepressant focusing on anxiolytic properties. Defer management to hospitalist. 4. CAD: Needs exam, plan, care and prognosis. Defer management to cardiology. Thank you for the consultation and the opportunity to participate in this patient's care. This note was generated with [employer] dictation software. It may contain incorrect words, spelling, and punctuation that were not noted in checking the note before signing.
[2018-06-29] MEDS: Sodium Chloride 0.65% 1 SPRAY SPRAY.BTL 2 SPRAY NASAL ×2 (15:28→21:35)
[2018-06-29] MEDS: Furosemide 40 MG/4 ML Vial IV (15:30)
[2018-06-30] VITALS (20 sets, daily range): BP systolic 100–155; BP diastolic 61–75; PULSE 51–71; RESP 16–20; TEMP 36.6–37.2; O2SAT 93–99
[2018-06-30] MEDS: Sodium Chloride 0.65% 1 SPRAY SPRAY.BTL 2 SPRAY NASAL ×2 (04:56→14:20)
[2018-06-30] MEDS: diazePAM 5 MG Tablet PO (04:58)
[2018-06-30] MEDS: Aspirin E.C. 81 MG Tablet PO (05:00)
[2018-06-30] MEDS: 0.9% Normal Saline 1,000 ML 15 ML IV (05:02)
[2018-06-30] MEDS: Isosorbide Mononitrate 60 MG Tablet PO (05:03)
[2018-06-30] MEDS: Clopidogrel Bisulfate 75 MG Tablet PO (05:03)
[2018-06-30] MEDS: 0.9% NaCl Peripheral Flush Adult/Peds IV ×2 (05:10→10:27)
--- NOTE | 2018-06-30 05:55 | EKG12_ITS ---
Test Reason : AM EKG Blood Pressure : / mmHG Vent. Rate : 050 BPM Atrial Rate : 050 BPM P-R Int : 162 ms QRS Dur : 112 ms QT Int : 466 ms P-R-T Axes : 015 -08 003 degrees QTc Int : 424 ms Sinus bradycardia Otherwise normal ECG When compared with ECG of 29-JUN-2018 02:53, MANUAL COMPARISON REQUIRED, DATA IS UNCONFIRMED Confirmed by BRIANNE TAM, EVERARDO ([id number]), editor trade journal CHIO DAVEY ([id number]) on 07/02/2018 2:01:05 PM Referred By: DR STACK Confirmed By:EVERARDO DECKER MD
[2018-06-30 06:09] LABS: Partial Thromboplast Time 25.1 Seconds (24.1-36.2); Prothrombin Time (Protime)PT. 12.8 SECONDS (11.7-14.9)
[2018-06-30 06:17] LABS: Absolute Lymphocyte Count 1.69 X10^3/ul (0.83-4.51); Absolute Neutrophil Count 4.2 X10^3/uL (2.0-7.7); Basophil# 0.01 X10^3/uL; Basophil% 0.2 % (0-1); Hematocrit 42.5 % (40-54); Hemoglobin 13.9 g/dl (13.0-16.5); Lymphocyte # 1.69 X10^3/ul (4.0); Lymphocyte % 25.7 % (19-41); Mean Corp Hgb Conc 32.7 g/gl (32-36); Mean Corpuscular Volume 91.6 fL (80-94); Mean Platelet Vol. 10.2 fl (6.2-12.0); Monocyte# 0.52 X10^3/uL; Monocyte% 7.9 % (0-10); Neutrophil # 4.16 X10^3/uL (2.7-7.7); Neutrophil % 63.2 % (47-70); Platelet Count 238 K/mm3 (150-450); RBC Distribution Width CV 13.9 % (11.6-14.6); Red Blood Count 4.64 M/mm3 (4.6-6.2); White Blood Count 6.6 K/mm3 (4.4-11.0)
[2018-06-30 06:24] LABS: Anion Gap 8 (5-15); BUN 15 mg/dL (7-18); BUN/Creat Ratio 18.8 RATIO (10-20); Calcium,Total 8.7 mg/dL (8.5-10.1); Chloride 104 mmol/L (98-107); EST Glomerular Filtration Rate 102 mL/min (>60); Est Glom Filt Rate - Afr Amer 124 mL/min (>60); Estimated Creatinine Clearance 92.52 ml/min; Glucose 96 mg/dL (74-106); Potassium 3.6 mmol/L (3.5-5.1); Sodium Level 140 mmol/L (136-145)
[2018-06-30 06:26] LABS: POSITIVE COUNT NO; POSITIVE DIFFERENTIAL NO; POSITIVE MORPHOLOGY NO
[2018-06-30] MEDS: Budesonide Respules 0.5 MG/2 ML AMPUL.NEB. INHALATION (07:43)
[2018-06-30] MEDS: DiphenhydrAMINE 25 MG Capsule 50 MG PO (10:26)
--- NOTE | 2018-06-30 11:28 | CL.I_ITS ---
Patient Name: KIRIT MCGUIRE Study Date: 06/30/2018 Performing: Ramo Tolliver MD Ht: 70.07 inches 178 cm : 1950 Wt: 264.55 lbs 120 kg Age: 68 Gender: male BSA: 2.35 PROCEDURE(S) PERFORMED [id number], CORONARY OR GRAFT, INITIAL VESSEL AV70-PVH/COR/LV CLINICAL PROFILE AND CO-MORBIDITIES Heart Failure: NYHA Class: 3, Heart Failure Type: Diastolic Stress/Imaging Stress Echocardiogram: Yes Result: Negative Stress Echocardiogram: Negative Angina Classification Anginal Classification w/in 2 Weeks: CCS III CAD Presentations: Unstable angina. Comorbidities/Risk Factors: Hypertension Dyslipidemia Prior PCI CONCLUSIONS Negative FFR of proximal and mid RCA. Relook at LAD stent shows it to be widely patent. RECOMMENDATIONS Highly recommend quitting all tobacco products Follow up with primary button facing machine operator Risk factor modification ASA Indefinitley Plavix for at least 12 months Routine post interventional care Refer for Outpatient Cardiac Rehab Manual sheath removal per protocol Follow up with Dr. Tolliver Start lasix 40mg po daily as well as losaran 25mg po daily. DESCRIPTION OF PROCEDURE The patient arrived to the procedure lab. The risks and benefits of the procedure as well as a full d escription of our services here and current unavailability of surgical backup were fully explained to the patient and/or their significant other prior to the catheterization. The Timeout was completed, verifying the correct patient and procedure. The patient's procedural site was prepped and draped in the usual fashion. Local anesthetic was given subcutaneously to right groin region with Lidocaine 2%. Using a modified Seldinger technique, arterial access was obtained via the right femoral artery, a 6 Fr sheath was inserted.. Left Coronary Artery selective angiography was performed in multiple views u sing a 4 Fr. JL5 catheter. Left Ventriculography was performed in DELANEY projection using a 4 Fr. Pigtai l catheter. LV to AO pullback pressures were then recorded HS 2 Guide catheter was inserted and engaged into the RCA. The FFR/iFR wire was inserted. Adenosi ne was then given per protocol. Pressures and FFR/iFR were then recorded. iFR measurements were perfo rmed. FFR Ratio Baseline: 1.02 FFR Ratio post Adenosine: 0.95 INTERVENTION INFORMATION LESION SITE: RCA (Mid) Pre Stenosis: 50 % Pre intervention ERICH flow: 3 PROCEDURE: FFR Post Stenosis: 50 % Post intervention ERICH flow: 3 Lesion Devices: Rallyhood 6 Fr HSII 100cm Guide Catheter COMPLICATIONS No Complications PROCEDURE MEDICATIONS Oxygen: 2 L/min via nasal cannula Oxygen: 4 L/min via nasal cannula Heparin 6000 unit(s) IV 06/30/2018 10:57:01 Nitro 200 mcg IC 06/30/2018 10:59:13 Nitro Tab 0.4 mcg 06/30/2018 11:18:00 IV Bolus: .9 NaCl 300 ml total 06/30/2018 11:14:09 SUMMARY OF HEMODYNAMIC DATA Time AIR REST ECG 10:46:35 AO 114/58 (84) SA 10:58:30 LV 171/-20, 18 11:10:28 LV 167/-16, 16 11:10:34 LVp 177/-15, 16 11:10:40 AOp 174/83 (117) 11:10:46 Signed By Ramo Tolliver MD On 06/30/2018 11:27:33 AM Ramo Tolliver MD
--- NOTE | 2018-06-30 11:37 | NURSING ---
This nurse gave report to DMITRI Orona in ICU.
[2018-06-30 11:40] LABS: ACT Activated Clotting Time 180 sec (74-137)
--- NOTE | 2018-06-30 13:14 | CASEMGMT ---
LW/POA in echart, SW printed and placed in chart. DIANA Manriquez, COMMERCIAL FISHING VESSEL OPERATOR
--- NOTE | 2018-06-30 13:29 | PCM.PROGNOTE ---
Patient Problems: Active and Suspected Problems (Last Updated 06/22/18 @ 09:16 by Emily Knox) Chest pain (Acute) Subjective: Patient seen and examined. Complains of increased anxiety prior to cardiac catheterization. Notes shortness of breath is about the same. Denies chest pain overnight. - Physical Exam General: Alert, Oriented x3, Cooperative HEENT: Atraumatic, PERRLA, EOMI, Normocephalic Neck: Supple, No JVD, Negative Carotid Bruits Lungs: Clear to auscultation, Normal air movement Cardiovascular: Regular rate, Regular Rhythm, Normal S1, Normal S2, No murmurs Abdomen: Bowel Sounds Present, Soft, Non Tender, Non-Distended Extremities: No clubbing, No cyanosis, No edema, Capillary Refill Less than 3 Seconds Skin: No rashes, No breakdown Musculoskeletal: No Tenderness to Palpation of Joints or Extremities Neurological: Cranial nerves II-XII grossly intact, Neuro grossly intact Psych/Mental Status: Normal Affect, Appropriate Vital Signs Temp Pulse Resp BP Pulse Ox 98 F 54 L 18 113/72 99 06/30/18 12:08 06/30/18 13:00 06/30/18 13:00 06/30/18 13:00 06/30/18 13:00 Oxygen Flow Rate (L/min) 2 Oxygen Delivery Method Nasal Cannula Weight: 264 lb 12.403 oz Body Mass Index (BMI) 38.0 Intake and Output for Last 24 Hours 06/28/18 06/29/18 06/30/18 23:59 23:59 23:59 Intake Total 257 / 257 1030 / 1030 Output Total 900 / 900 3725 / 3725 450 / 450 Balance -643 / -643 -2695 / -2695 -450 / -450 Laboratory Tests Past 24 Hrs 06/30/18 06/30/18 06/30/18 05:15 05:15 05:15 WBC 6.6 RBC 4.64 Hgb 13.9 Hct 42.5 MCV 91.6 MCH 30.0 MCHC 32.7 RDW 13.9 RDW Differential 47.0 H Plt Count 238 MPV 10.2 Immature Gran % (Auto) 0.000 Neut % (Auto) 63.2 Lymph % (Auto) 25.7 [place] % (Auto) 7.9 Eos % (Auto) 3.0 Baso % (Auto) 0.2 Absolute Neuts (auto) 4.2 Absolute Lymphs (auto) 1.69 Total Counted Not Reportable PT 12.8 INR 1.0 APTT 25.1 Activated Clotting Time Sodium 140 Potassium 3.6 Chloride 104 Carbon Dioxide 28.0 Anion Gap 8 BUN 15 Creatinine 0.80 Estim Creat Clear Calc 92.52 Est GFR (MDRD) Af Amer 124 Est GFR (MDRD) Non-Af 102 BUN/Creatinine Ratio 18.8 Glucose 96 Calcium 8.7 06/30/18 11:12 WBC RBC Hgb Hct MCV MCH MCHC RDW RDW Differential Plt Count MPV Immature Gran % (Auto) Neut % (Auto) Lymph % (Auto) [place]ie % (Auto) Eos % (Auto) Baso % (Auto) Absolute Neuts (auto) Absolute Lymphs (auto) Total Counted PT INR APTT Activated Clotting Time 180 H Sodium Potassium Chloride Carbon Dioxide Anion Gap BUN Creatinine Estim Creat Clear Calc Est GFR (MDRD) Af Amer Est GFR (MDRD) Non-Af BUN/Creatinine Ratio Glucose Calcium Medical Necessity - Tobacco Use Smoking Status: Former smoker Tobacco Use: Cigarettes Assessment/Plan All Active Problems (Last Updated 06/22/18 @ 09:16 by Emily Knox) Chest pain (Acute) Abnormal stress echocardiogram (Acute) Shortness of breath (Acute) 1. Chest pain-cardiology following. Negative FFR of proximal and mid RCA. LAD stent patent. Troponin negative. Continue aspirin, Plavix. Not on statin. Recent lipid panel within normal limits. 2. Dyspnea on exertion/chronic diastolic dysfunction-dyspnea reported to be ongoing. He has been seeing Dr. Roach, pulmonary medicine with recent normal PFTs. Pulmonary medicine consulted. Chest CTA with minimally dilated ascending thoracic aorta with a transverse dimension of 4.4 cm. Small hiatal hernia. Otherwise no pulmonary abnormalities. SOB possibly due to chronic diastolic dysfunction. Echocardiogram 06/09/2018 with EF 65%, stage I diastolic dysfunction, RVSP estimated be 26 mmHg. Patient started on Lasix 40 mg daily. 3. CAD status post PCI-Follows with Dr. Tolliver. Continue aspirin, Plavix, beta-oneal. Does not appear to be on statin. 4. Hypertension-stable, continue home atenolol, isosorbide regimen. Losartan 25 mg daily added. 5. Anxiety/depression-poorly controlled. Continue home diazepam, sertraline regimen. Recommend outpatient follow-up with counseling. 6. BPH-continue home tamsulosin regimen. 7. Unclear recent neurologic events-patient complains of episodes of intermittent weakness which instability occur at rest. He was evaluated by a neurologist in [facility] and was reported to have a normal CT of brain. Recommend continued outpatient follow-up with primary neurologist. DVT prophylaxis- Lovenox Discharge planning: Anticipate discharge home tomorrow with further outpatient follow-up. This patient was seen by JUAN M Wren under the supervision of Dr. Rmairez.
[2018-06-30] MEDS: Tamsulosin HCl 0.4 MG Capsule PO (14:22)
[2018-06-30] MEDS: Chlorthalidone 50 MG Tablet 12.5 MG PO (14:22)
--- NOTE | 2018-06-30 15:05 | CASEMGMT ---
Social Work Referral for statement with a suicidal implication. Met with patient and patient spouse, Afsaneh in room. This social media intern introduced self as well as social work role. This social media intern then exploring earlier statement that patient made to nursing staff. Patient reporting to feel hopeless at times, generally connected with shortness of breath. Patient also reporting to become anxious prior to shortness of breath and feelings of hopelessness. This social media intern inquiring if anything specific makes patient feel anxious, patient denies any reason at this time. This social media intern exploring patient current and past thoughts about suicide. Patient denies any history of or current thoughts of suicide at this time. Patient reporting to just not like the feeling of hopelessness. Patient reporting to have been struggling with shortness of breath for the past 1-2 months and to have been able to work though it most of the time but that sometimes patient has needed to go to the emergency room or hospital. Patient reporting to want to have help with working through anxiety/depressive thoughts. Patient spouse then asking this social media intern about counseling options for patient as per Afsaneh Tolliver has been recommending for patient to begin counseling as there is not medical reason for patients shortness of breath. This social media intern providing patient with list of counseling agencies within the [facility]. Patient and Afsaneh reporting to be planning to set up a counseling appointment. At this time. Dr. Ramirez did enter the room and confirmed that there are currently no medical findings for patient shortness of breath and that the current recommendation is for patient to decrease patient anxiety. Patient agreeing with Dr. Ramirez. Patient reporting to currently workout 2-3 times a week at a fitness gym in [facility] and to enjoy playing guitar. This social media intern and Dr. Ramirez collaborating with patient on possible other hobbies, patient spouse joining in on the conversation and patient is interested in looking into beginning other hobbies that may work towards improving his mental health status. Patient lives at home with spouse in a 1-story home with x5 steps to enter the home. Patient does have a cane at home but does not typically use the cane. Patient spouse is currently working but plans to retire here soon. Patient spouse presenting as supportive and patient presenting as accepting of patient spouses support. Patient thanking this social media intern and voicing intentions of setting up a counseling appointment, patient spouse supportive of this as well. Further conversation was had about the importance of maintaining a good mental health status and how this can affect a persons functioning both mentally and physically. Patient presenting with a pleasant and engaged affect during conversation. Patient plans to discharge to home with spouse at time of discharge. Support given. Social Work to continue to follow if needed. Brittany Galvez, PRESETTER OPERATOR, SUPERVISOR [employer]
--- NOTE | 2018-06-30 16:23 | PCM.DC ---
- Discharge Diagnoses Current Active Problems: Current Active and Chronic Problems (Last Updated 06/22/18 @ 09:16 by Emily Knox) Chest pain (Acute) You will use the following diet at home:: Cardiac Discharge Activity: - - Follow post-op cath instructions Call your doctor if you observe: Shortness of breath, Dizziness, Fainting spells, Chest pain Allergies/Adverse Reactions: Allergies codeine Adverse Reaction (Verified 06/28/18 16:48) High Fever Medications to take at Discharge aspirin 81 mg tablet,delayed release 81 mg PO DAILY 05/31/18 atenolol 50 mg-chlorthalidone 25 mg tablet 0.5 tab PO DAILY tab 05/31/18 diazepam 5 mg tablet 5 mg PO BID PRN tab 05/31/18 tamsulosin 0.4 mg capsule 8 mg PO QHS 05/31/18 clopidogrel 75 mg tablet 75 mg PO DAILY #30 tab 06/15/18 Isosorbide Mononitrate [Imdur] 60 mg PO DAILY #30 tablet 06/22/18 Oxymetazoline HCl [12 Hour Nasal Relief] 2 spray NASAL TID 06/28/18 Diazepam 2 mg PO QHS 06/29/18 Fluticasone Furoate 1 spray NASAL QODAY 06/29/18 Levofloxacin 1 tablet PO QODAY 06/29/18 Meclizine HCl 1 tablet PO TID 06/29/18 Sertraline HCl [Zoloft] 1 tablet PO QODAY 06/29/18 Vitamin B Complex 1 tablet PO QODAY 06/29/18 Furosemide [Lasix] 40 mg PO DAILY #30 tablet 06/30/18 Losartan Potassium [Cozaar] 25 mg PO DAILY #30 tablet 06/30/18 The following prescriptions were given: Furosemide [Lasix] 40 mg PO DAILY #30 tablet Losartan Potassium [Cozaar] 25 mg PO DAILY #30 tablet Primary Care Physician: Hansa Brooks, RN [Primary Care Provider] - Please follow up with your Primary Care Physician in: 1 Week Test Results: Test results from this visit will be discussed in further detail at your follow-up appointment, if applicable. Please Follow Up With: Ramo Tolliver MD - May seen TITLE ONE KINDERGARTEN TEACHER/PA When: 2 Weeks Please Follow Up With: Prasad Ross MD - May see TITLE ONE KINDERGARTEN TEACHER When: 1-2 Weeks Please Follow Up With: Counselor When: 1 Week, Recommend outpatient counseling for anxiety Proposed Discharge Date: 06/30/18
--- NOTE | 2018-06-30 16:28 | DCINST_ITS ---
- Discharge Diagnoses Current Active Problems: Current Active and Chronic Problems (Last Updated 06/22/18 @ 09:16 by Emily Knox) Chest pain (Acute) You will use the following diet at home:: Cardiac Discharge Activity: - - Follow post-op cath instructions Call your doctor if you observe: Shortness of breath, Dizziness, Fainting spells, Chest pain Allergies/Adverse Reactions: Allergies codeine Adverse Reaction (Verified 06/28/18 16:48) High Fever Medications to take at Discharge aspirin 81 mg tablet,delayed release 81 mg PO DAILY 05/31/18 atenolol 50 mg-chlorthalidone 25 mg tablet 0.5 tab PO DAILY tab 05/31/18 diazepam 5 mg tablet 5 mg PO BID PRN tab 05/31/18 tamsulosin 0.4 mg capsule 8 mg PO QHS 05/31/18 clopidogrel 75 mg tablet 75 mg PO DAILY #30 tab 06/15/18 Isosorbide Mononitrate [Imdur] 60 mg PO DAILY #30 tablet 06/22/18 Oxymetazoline HCl [12 Hour Nasal Relief] 2 spray NASAL TID 06/28/18 Diazepam 2 mg PO QHS 06/29/18 Fluticasone Furoate 1 spray NASAL QODAY 06/29/18 Levofloxacin 1 tablet PO QODAY 06/29/18 Meclizine HCl 1 tablet PO TID 06/29/18 Sertraline HCl [Zoloft] 1 tablet PO QODAY 06/29/18 Vitamin B Complex 1 tablet PO QODAY 06/29/18 Furosemide [Lasix] 40 mg PO DAILY #30 tablet 06/30/18 Losartan Potassium [Cozaar] 25 mg PO DAILY #30 tablet 06/30/18 The following prescriptions were given: Furosemide [Lasix] 40 mg PO DAILY #30 tablet Losartan Potassium [Cozaar] 25 mg PO DAILY #30 tablet Primary Care Physician: Hansa Brooks, RN [Primary Care Provider] - Please follow up with your Primary Care Physician in: 1 Week Test Results: Test results from this visit will be discussed in further detail at your follow- up appointment, if applicable. Please Follow Up With: Ramo Tolliver MD - May seen LABORATORY MONITOR/PA When: 2 Weeks Please Follow Up With: Prasad Ross MD - May see LABORATORY MONITOR When: 1-2 Weeks Please Follow Up With: Counselor When: 1 Week, Recommend outpatient counseling for anxiety Proposed Discharge Date: 06/30/18
--- NOTE | 2018-06-30 16:30 | PCM.DC.SUM ---
<Diana Jones - Last Filed: 06/30/18 16:42> Discharge Date and Diagnosis Date of Admission: 06/28/18 Date of Discharge: 06/30/18 - Primary Discharge Diagnosis Active and Suspected Problems (Last Updated 06/22/18 @ 09:16 by Emily Knox) 1. Chest pain, ACS ruled out 2. Dyspnea on exertion, suspected secondary to chronic diastolic dysfunction 3. CAD status post PCI 4. Hypertension 5. Anxiety/depression 6. BPH - Secondary Discharge Diagnosis Chronic Problems (Last Updated 06/22/18 @ 09:16 by Emily Knox) Atherosclerotic heart disease of [place] coronary artery without angina pectoris (Chronic 02/02/12) 50-60% stenosis in mid LAD; 80% ostial stenosis of Diagonal 1, which is small. Ramus: small w/mild disease. LCX: 90% stenosis in proion in proximal part. Rt external iliac and rt common femoral have mild luminal irregularities.ximal OM1, large vessel with multiple branches. RCA: Ectatic with no significant obstructive stenosis. Abdominal aortogram: see aortic aneurysm.ABHINAV to mid LAD (3.0 X 16 Promus) per Dr. Tolliver @ [facility]. Aortic aneurysm (Chronic 02/02/12) Per Abdominal aortogram done during cath 02/02/2012 @ [place]: ectatic/aneurysmal infrarenal abdominal aorta. Right common iliac has an aneurysmal portion with a possible 40-50% stenosis in proximal portion. Right exertnal iliac and right common femoral arteries have mild luminal irregularities. Left common iliac has an aneurysmal portion in the proximal part. The right external iliac artery and right common femoral artery have mild luminal irregularities. Stented coronary artery (Chronic 06/21/18) ABHINAV to OM 1: 3.0 X [address] Loco @ [facility] 02/02/2012; ABHINAV to mid LAD (3.0 X 16 Promus) per Dr. Tolliver @ [facility]. Essential hypertension (Chronic) Hospital Course and Treatment Imaging Results: Diagnostic Data Chest X-Ray 06/28/18 17:30 IMPRESSION: Indeterminate opacity within the right lateral lung, this may be secondary to a confluence of shadows, consider PA and lateral images or chest CT for further characterization. Electronically Signed: Gladys Pizano MD at 18:10 EST Tel , Service support , Chest CTA 06/29/18 08:57 IMPRESSION: Minimally dilated ascending thoracic aorta with a transverse dimension of 4.4 cm. Electronically Signed: Bennie Greenfield MD at 10:41 EST Tel [phone], Service support , Dr. Tolliver-Cardiology Dr. Ross- Pulmonary Medicine Operations: None Procedures: - - FFR of proximal and mid RCA Summary of Care Provided: The patient is a 68 year old M admitted 06/28/2018 due to chest pain. 1. Chest pain-cardiology following. Negative FFR of proximal and mid RCA. LAD stent patent. Troponin negative. Continue aspirin, Plavix. Not on statin. Recent lipid panel within normal limits. Follow-up with Dr. Tolliver in 1-2 weeks. 2. Dyspnea on exertion/chronic diastolic dysfunction-dyspnea reported to be ongoing. He has been seeing Dr. Roach, pulmonary medicine with recent normal PFTs. Pulmonary medicine consulted. Chest CTA with minimally dilated ascending thoracic aorta with a transverse dimension of 4.4 cm. Small hiatal hernia. Otherwise no pulmonary abnormalities. SOB possibly due to chronic diastolic dysfunction. Echocardiogram 06/09/2018 with EF 65%, stage I diastolic dysfunction, RVSP estimated be 26 mmHg. Patient started on Lasix 40 mg daily. Recommend follow-up with Dr. Ross in 1-2 weeks for further outpatient pulmonary evaluation. 3. CAD status post PCI-Follows with Dr. Tolliver. Continue aspirin, Plavix, beta-oneal. Does not appear to be on statin. 4. Hypertension-stable, continue home atenolol, isosorbide regimen. Losartan 25 mg daily added. 5. Anxiety/depression-poorly controlled. Continue home diazepam, sertraline regimen. Recommend outpatient follow-up with counseling. 6. BPH-continue home tamsulosin regimen. 7. Unclear recent neurologic events-patient complains of episodes of intermittent weakness which instability occur at rest. He was evaluated by a neurologist in [facility] and was reported to have a normal CT of brain. Recommend continued outpatient follow-up with primary neurologist. General: Alert, Oriented x3, Cooperative HEENT: Atraumatic, PERRLA, EOMI, Normocephalic Neck: Supple, No JVD, Negative Carotid Bruits Lungs: Clear to auscultation, Normal air movement Cardiovascular: Regular rate, Regular Rhythm, Normal S1, Normal S2, No murmurs Abdomen: Bowel Sounds Present, Soft, Non Tender, Non-Distended Extremities: No clubbing, No cyanosis, No edema, Capillary Refill Less than 3 Seconds Skin: No rashes, No breakdown Musculoskeletal: No Tenderness to Palpation of Joints or Extremities Neurological: Cranial nerves II-XII grossly intact, Neuro grossly intact Psych/Mental Status: Normal Affect, Appropriate Patient seen and examined prior to discharge. Physical assessment as noted above. Patient is stable for discharge with follow up recommendations as noted above. This patient was seen by JUAN M Wren under the supervision of Dr. Ramirez. - Physical Exam Vital Signs Temp Pulse Resp BP Pulse Ox 98 F 58 L 18 117/63 93 06/30/18 13:30 06/30/18 16:00 06/30/18 16:00 06/30/18 16:00 06/30/18 16:00 Oxygen Flow Rate (L/min) 2 Oxygen Delivery Method Room Air Weight: 264 lb 12.403 oz Body Mass Index (BMI) 38.0 Intake and Output for Last 24 Hours 06/28/18 06/29/18 06/30/18 23:59 23:59 23:59 Intake Total 257 / 257 1030 / 1030 Output Total 900 / 900 3725 / 3725 450 / 450 Balance -643 / -643 -2695 / -2695 -450 / -450 Laboratory Tests Past 24 Hrs 06/30/18 06/30/18 06/30/18 05:15 05:15 05:15 WBC 6.6 RBC 4.64 Hgb 13.9 Hct 42.5 MCV 91.6 MCH 30.0 MCHC 32.7 RDW 13.9 RDW Differential 47.0 H Plt Count 238 MPV 10.2 Immature Gran % (Auto) 0.000 Neut % (Auto) 63.2 Lymph % (Auto) 25.7 Merrick % (Auto) 7.9 Eos % (Auto) 3.0 Baso % (Auto) 0.2 Absolute Neuts (auto) 4.2 Absolute Lymphs (auto) 1.69 Total Counted Not Reportable PT 12.8 INR 1.0 APTT 25.1 Activated Clotting Time Sodium 140 Potassium 3.6 Chloride 104 Carbon Dioxide 28.0 Anion Gap 8 BUN 15 Creatinine 0.80 Estim Creat Clear Calc 92.52 Est GFR (MDRD) Af Amer 124 Est GFR (MDRD) Non-Af 102 BUN/Creatinine Ratio 18.8 Glucose 96 Calcium 8.7 06/30/18 11:12 WBC RBC Hgb Hct MCV MCH MCHC RDW RDW Differential Plt Count MPV Immature Gran % (Auto) Neut % (Auto) Lymph % (Auto) Merrick % (Auto) Eos % (Auto) Baso % (Auto) Absolute Neuts (auto) Absolute Lymphs (auto) Total Counted PT INR APTT Activated Clotting Time 180 H Sodium Potassium Chloride Carbon Dioxide Anion Gap BUN Creatinine Estim Creat Clear Calc Est GFR (MDRD) Af Amer Est GFR (MDRD) Non-Af BUN/Creatinine Ratio Glucose Calcium Discharge Diet: Low fat/ Low Cholesterol Discharge Activity: - - Follow post-op cath instructions Call your doctor if you observe: Shortness of breath, Dizziness, Fainting spells, Chest pain Home Medications: Medications to take at Discharge aspirin 81 mg tablet,delayed release 81 mg PO DAILY 05/31/18 atenolol 50 mg-chlorthalidone 25 mg tablet 0.5 tab PO DAILY tab 05/31/18 diazepam 5 mg tablet 5 mg PO BID PRN tab 05/31/18 tamsulosin 0.4 mg capsule 8 mg PO QHS 05/31/18 clopidogrel 75 mg tablet 75 mg PO DAILY #30 tab 06/15/18 Isosorbide Mononitrate [Imdur] 60 mg PO DAILY #30 tablet 06/22/18 Oxymetazoline HCl [12 Hour Nasal Relief] 2 spray NASAL TID 06/28/18 Diazepam 2 mg PO QHS 06/29/18 Fluticasone Furoate 1 spray NASAL QODAY 06/29/18 Levofloxacin 1 tablet PO QODAY 06/29/18 Meclizine HCl 1 tablet PO TID 06/29/18 Sertraline HCl [Zoloft] 1 tablet PO QODAY 06/29/18 Vitamin B Complex 1 tablet PO QODAY 06/29/18 Furosemide [Lasix] 40 mg PO DAILY #30 tablet 06/30/18 Losartan Potassium [Cozaar] 25 mg PO DAILY #30 tablet 06/30/18 Following Prescrptions Were Given to Patient: Furosemide [Lasix] 40 mg PO DAILY #30 tablet Losartan Potassium [Cozaar] 25 mg PO DAILY #30 tablet Primary Care Physician: Hansa Brooks, RN [Primary Care Provider] - Please follow up with your Primary Care Physician in: 1 Week Please Follow Up With: Ramo Tolliver MD - May seen ORACLE BPM DEVELOPER/PA When: 2 Weeks Please Follow Up With: Prasad Ross MD - May see ORACLE BPM DEVELOPER When: 1-2 Weeks Please Follow Up With: Counselor When: 1 Week, Recommend outpatient counseling for anxiety Disposition: Home Minutes spent on discharge:: 35 Patient Condition:: Stable Medical Necessity - Tobacco Use Smoking Status: Former smoker Tobacco Use: Cigarettes Meaningful Use Info Meaningful Use Diagnoses (Choose all that apply): None applicable <Earl Ramirez - Last Filed: 06/30/18 17:17> Discharge Date and Diagnosis - Secondary Discharge Diagnosis Chronic Problems (Last Updated 06/22/18 @ 09:16 by Emily Knox) Atherosclerotic heart disease of [place] coronary artery without angina pectoris (Chronic 02/02/12) 50-60% stenosis in mid LAD; 80% ostial stenosis of Diagonal 1, which is small. Ramus: small w/mild disease. LCX: 90% stenosis in proion in proximal part. Rt external iliac and rt common femoral have mild luminal irregularities.ximal OM1, large vessel with multiple branches. RCA: Ectatic with no significant obstructive stenosis. Abdominal aortogram: see aortic aneurysm.ABHINAV to mid LAD (3.0 X 16 Promus) per Dr. Tolliver @ [facility]. Aortic aneurysm (Chronic 02/02/12) Per Abdominal aortogram done during cath 02/02/2012 @ [place]: ectatic/aneurysmal infrarenal abdominal aorta. Right common iliac has an aneurysmal portion with a possible 40-50% stenosis in proximal portion. Right exertnal iliac and right common femoral arteries have mild luminal irregularities. Left common iliac has an aneurysmal portion in the proximal part. The right external iliac artery and right common femoral artery have mild luminal irregularities. Stented coronary artery (Chronic 06/21/18) ABHINAV to OM 1: 3.0 X [address] Loco @ [facility] 02/02/2012; ABHINAV to mid LAD (3.0 X 16 Promus) per Dr. Tolliver @ [facility]. Essential hypertension (Chronic) Hospital Course and Treatment Summary of Care Provided: The patient is a 68 year old M [] - Physical Exam Vital Signs Temp Pulse Resp BP Pulse Ox 98 F 57 L 18 133/73 H 95 06/30/18 13:30 06/30/18 17:00 06/30/18 17:00 06/30/18 17:00 06/30/18 17:00 Oxygen Flow Rate (L/min) 2 Oxygen Delivery Method Room Air Weight: 264 lb 12.403 oz Body Mass Index (BMI) 38.0 Intake and Output for Last 24 Hours 06/28/18 06/29/18 06/30/18 23:59 23:59 23:59 Intake Total 257 / 257 1030 / 1030 Output Total 900 / 900 3725 / 3725 450 / 450 Balance -643 / -643 -2695 / -2695 -450 / -450 Laboratory Tests Past 24 Hrs 06/30/18 06/30/18 06/30/18 05:15 05:15 05:15 WBC 6.6 RBC 4.64 Hgb 13.9 Hct 42.5 MCV 91.6 MCH 30.0 MCHC 32.7 RDW 13.9 RDW Differential 47.0 H Plt Count 238 MPV 10.2 Immature Gran % (Auto) 0.000 Neut % (Auto) 63.2 Lymph % (Auto) 25.7 Merrick % (Auto) 7.9 Eos % (Auto) 3.0 Baso % (Auto) 0.2 Absolute Neuts (auto) 4.2 Absolute Lymphs (auto) 1.69 Total Counted Not Reportable PT 12.8 INR 1.0 APTT 25.1 Activated Clotting Time Sodium 140 Potassium 3.6 Chloride 104 Carbon Dioxide 28.0 Anion Gap 8 BUN 15 Creatinine 0.80 Estim Creat Clear Calc 92.52 Est GFR (MDRD) Af Amer 124 Est GFR (MDRD) Non-Af 102 BUN/Creatinine Ratio 18.8 Glucose 96 Calcium 8.7 06/30/18 11:12 WBC RBC Hgb Hct MCV MCH MCHC RDW RDW Differential Plt Count MPV Immature Gran % (Auto) Neut % (Auto) Lymph % (Auto) Merrick % (Auto) Eos % (Auto) Baso % (Auto) Absolute Neuts (auto) Absolute Lymphs (auto) Total Counted PT INR APTT Activated Clotting Time 180 H Sodium Potassium Chloride Carbon Dioxide Anion Gap BUN Creatinine Estim Creat Clear Calc Est GFR (MDRD) Af Amer Est GFR (MDRD) Non-Af BUN/Creatinine Ratio Glucose Calcium Code Visit Addendum: Dr. Ramirez I personally examined the patient and reviewed the chart. I agree with the above. 68-year-old male with past medical history of known coronary artery disease who had a stent placed about a month ago and he was to have another cath done next week however he was presenting with more frequent chest pain and so his cath was moved up to 10 a day. His cath was found to be normal. His right coronary artery was found to be normal and the site of his previous stent was shown to be patent. It was noted that he had more relief from the benzodiazepine that he did from morphine for his chest pain. At this time I do think that a lot of his symptomatology is related to anxiety and I recommended to him that he follow-up with his primary care physician to be started on either an antidepressant or therapy. Of note his EF was normal however he did have some slight diastolic dysfunction and therefore it was recommended by cardiology he be placed on Lasix 40 mg daily and losartan 25 mg daily. He is to follow-up with his primary care physician and cardiology as an outpatient. OBSV E&M: [id number] Observation care discharge
--- NOTE | 2018-06-30 16:37 | DS.PCM_ITS ---
<Diana Jones - Last Filed: 06/30/18 16:42> Discharge Date and Diagnosis Date of Admission: 06/28/18 Date of Discharge: 06/30/18 - Primary Discharge Diagnosis Active and Suspected Problems (Last Updated 06/22/18 @ 09:16 by Emily Knox) 1. Chest pain, ACS ruled out 2. Dyspnea on exertion, suspected secondary to chronic diastolic dysfunction 3. CAD status post PCI 4. Hypertension 5. Anxiety/depression 6. BPH - Secondary Discharge Diagnosis Chronic Problems (Last Updated 06/22/18 @ 09:16 by Emily Knox) Atherosclerotic heart disease of [place] coronary artery without angina pectoris (Chronic 02/02/12) 50-60% stenosis in mid LAD; 80% ostial stenosis of Diagonal 1, which is small. Ramus: small w/mild disease. LCX: 90% stenosis in proion in proximal part. Rt external iliac and rt common femoral have mild luminal irregularities.ximal OM1, large vessel with multiple branches. RCA: Ectatic with no significant obstructive stenosis. Abdominal aortogram: see aortic aneurysm.ABHINAV to mid LAD (3.0 X 16 Promus) per Dr. Tolliver @ [facility]. Aortic aneurysm (Chronic 02/02/12) Per Abdominal aortogram done during cath 02/02/2012 @ [place]: ectatic/aneurysmal infrarenal abdominal aorta. Right common iliac has an aneurysmal portion with a possible 40-50% stenosis in proximal portion. Right exertnal iliac and right common femoral arteries have mild luminal irregularities. Left common iliac has an aneurysmal portion in the proximal part. The right external iliac artery and right common femoral artery have mild luminal irregularities. Stented coronary artery (Chronic 06/21/18) ABHINAV to OM 1: 3.0 X [address] Loco @ [facility] 02/02/2012; ABHINAV to mid LAD (3.0 X 16 Promus) per Dr. Tolliver @ [facility]. Essential hypertension (Chronic) Hospital Course and Treatment Imaging Results: Diagnostic Data Chest X-Ray 06/28/18 17:30 IMPRESSION: Indeterminate opacity within the right lateral lung, this may be secondary to a confluence of shadows, consider PA and lateral images or chest CT for further characterization. Electronically Signed: Gladys Pizano MD at 18:10 EST Tel , Service support , Chest CTA 06/29/18 08:57 IMPRESSION: Minimally dilated ascending thoracic aorta with a transverse dimension of 4.4 cm. Electronically Signed: Bennie Greenfield MD at 10:41 EST Tel [phone], Service support , Dr. Tolliver-Cardiology Dr. Ross- Pulmonary Medicine Operations: None Procedures: - - FFR of proximal and mid RCA Summary of Care Provided: The patient is a 68 year old M admitted 06/28/2018 due to chest pain. 1. Chest pain-cardiology following. Negative FFR of proximal and mid RCA. LAD stent patent. Troponin negative. Continue aspirin, Plavix. Not on statin. Recent lipid panel within normal limits. Follow-up with Dr. Tolliver in 1-2 weeks. 2. Dyspnea on exertion/chronic diastolic dysfunction-dyspnea reported to be ongoing. He has been seeing Dr. Roach, pulmonary medicine with recent normal PFTs. Pulmonary medicine consulted. Chest CTA with minimally dilated ascending thoracic aorta with a transverse dimension of 4.4 cm. Small hiatal hernia. Otherwise no pulmonary abnormalities. SOB possibly due to chronic diastolic dysfunction. Echocardiogram 06/09/2018 with EF 65%, stage I diastolic dysfunction, RVSP estimated be 26 mmHg. Patient started on Lasix 40 mg daily. Recommend follow-up with Dr. Ross in 1-2 weeks for further outpatient pulmonary evaluation. 3. CAD status post PCI-Follows with Dr. Tolliver. Continue aspirin, Plavix, beta- oneal. Does not appear to be on statin. 4. Hypertension-stable, continue home atenolol, isosorbide regimen. Losartan 25 mg daily added. 5. Anxiety/depression-poorly controlled. Continue home diazepam, sertraline regimen. Recommend outpatient follow-up with counseling. 6. BPH-continue home tamsulosin regimen. 7. Unclear recent neurologic events-patient complains of episodes of intermittent weakness which instability occur at rest. He was evaluated by a neurologist in [facility] and was reported to have a normal CT of brain. Recommend continued outpatient follow-up with primary neurologist. General: Alert, Oriented x3, Cooperative HEENT: Atraumatic, PERRLA, EOMI, Normocephalic Neck: Supple, No JVD, Negative Carotid Bruits Lungs: Clear to auscultation, Normal air movement Cardiovascular: Regular rate, Regular Rhythm, Normal S1, Normal S2, No murmurs Abdomen: Bowel Sounds Present, Soft, Non Tender, Non-Distended Extremities: No clubbing, No cyanosis, No edema, Capillary Refill Less than 3 Seconds Skin: No rashes, No breakdown Musculoskeletal: No Tenderness to Palpation of Joints or Extremities Neurological: Cranial nerves II-XII grossly intact, Neuro grossly intact Psych/Mental Status: Normal Affect, Appropriate Patient seen and examined prior to discharge. Physical assessment as noted above. Patient is stable for discharge with follow up recommendations as noted above. This patient was seen by JUAN M Wren under the supervision of Dr. Ramirez. - Physical Exam Vital Signs Temp Pulse Resp BP Pulse Ox 98 F 58 L 18 117/63 93 06/30/18 13:30 06/30/18 16:00 06/30/18 16:00 06/30/18 16:00 06/30/18 16:00 Oxygen Flow Rate (L/min) 2 Oxygen Delivery Method Room Air Weight: 264 lb 12.403 oz Body Mass Index (BMI) 38.0 Intake and Output for Last 24 Hours 06/28/18 06/29/18 06/30/18 23:59 23:59 23:59 Intake Total 257 / 257 1030 / 1030 Output Total 900 / 900 3725 / 3725 450 / 450 Balance -643 / -643 -2695 / -2695 -450 / -450 Laboratory Tests Past 24 Hrs 06/30/18 06/30/18 06/30/18 05:15 05:15 05:15 WBC 6.6 RBC 4.64 Hgb 13.9 Hct 42.5 MCV 91.6 MCH 30.0 MCHC 32.7 RDW 13.9 RDW Differential 47.0 H Plt Count 238 MPV 10.2 Immature Gran % (Auto) 0.000 Neut % (Auto) 63.2 Lymph % (Auto) 25.7 Kleberg % (Auto) 7.9 Eos % (Auto) 3.0 Baso % (Auto) 0.2 Absolute Neuts (auto) 4.2 Absolute Lymphs (auto) 1.69 Total Counted Not Reportable PT 12.8 INR 1.0 APTT 25.1 Activated Clotting Time Sodium 140 Potassium 3.6 Chloride 104 Carbon Dioxide 28.0 Anion Gap 8 BUN 15 Creatinine 0.80 Estim Creat Clear Calc 92.52 Est GFR (MDRD) Af Amer 124 Est GFR (MDRD) Non-Af 102 BUN/Creatinine Ratio 18.8 Glucose 96 Calcium 8.7 06/30/18 11:12 WBC RBC Hgb Hct MCV MCH MCHC RDW RDW Differential Plt Count MPV Immature Gran % (Auto) Neut % (Auto) Lymph % (Auto) Kleberg % (Auto) Eos % (Auto) Baso % (Auto) Absolute Neuts (auto) Absolute Lymphs (auto) Total Counted PT INR APTT Activated Clotting Time 180 H Sodium Potassium Chloride Carbon Dioxide Anion Gap BUN Creatinine Estim Creat Clear Calc Est GFR (MDRD) Af Amer Est GFR (MDRD) Non-Af BUN/Creatinine Ratio Glucose Calcium Discharge Diet: Low fat/ Low Cholesterol Discharge Activity: - - Follow post-op cath instructions Call your doctor if you observe: Shortness of breath, Dizziness, Fainting spells, Chest pain Home Medications: Medications to take at Discharge aspirin 81 mg tablet,delayed release 81 mg PO DAILY 05/31/18 atenolol 50 mg-chlorthalidone 25 mg tablet 0.5 tab PO DAILY tab 05/31/18 diazepam 5 mg tablet 5 mg PO BID PRN tab 05/31/18 tamsulosin 0.4 mg capsule 8 mg PO QHS 05/31/18 clopidogrel 75 mg tablet 75 mg PO DAILY #30 tab 06/15/18 Isosorbide Mononitrate [Imdur] 60 mg PO DAILY #30 tablet 06/22/18 Oxymetazoline HCl [12 Hour Nasal Relief] 2 spray NASAL TID 06/28/18 Diazepam 2 mg PO QHS 06/29/18 Fluticasone Furoate 1 spray NASAL QODAY 06/29/18 Levofloxacin 1 tablet PO QODAY 06/29/18 Meclizine HCl 1 tablet PO TID 06/29/18 Sertraline HCl [Zoloft] 1 tablet PO QODAY 06/29/18 Vitamin B Complex 1 tablet PO QODAY 06/29/18 Furosemide [Lasix] 40 mg PO DAILY #30 tablet 06/30/18 Losartan Potassium [Cozaar] 25 mg PO DAILY #30 tablet 06/30/18 Following Prescrptions Were Given to Patient: Furosemide [Lasix] 40 mg PO DAILY #30 tablet Losartan Potassium [Cozaar] 25 mg PO DAILY #30 tablet Primary Care Physician: Hansa Brooks, RN [Primary Care Provider] - Please follow up with your Primary Care Physician in: 1 Week Please Follow Up With: Ramo Tolliver MD - May seen LEAD PRESSER/PA When: 2 Weeks Please Follow Up With: Prasad Ross MD - May see LEAD PRESSER When: 1-2 Weeks Please Follow Up With: Counselor When: 1 Week, Recommend outpatient counseling for anxiety Disposition: Home Minutes spent on discharge:: 35 Patient Condition:: Stable Medical Necessity - Tobacco Use Smoking Status: Former smoker Tobacco Use: Cigarettes Meaningful Use Info Meaningful Use Diagnoses (Choose all that apply): None applicable <Earl Ramirez - Last Filed: 06/30/18 17:17> Discharge Date and Diagnosis - Secondary Discharge Diagnosis Chronic Problems (Last Updated 06/22/18 @ 09:16 by Emily Knox) Atherosclerotic heart disease of [place] coronary artery without angina pectoris (Chronic 02/02/12) 50-60% stenosis in mid LAD; 80% ostial stenosis of Diagonal 1, which is small. Ramus: small w/mild disease. LCX: 90% stenosis in proion in proximal part. Rt external iliac and rt common femoral have mild luminal irregularities.ximal OM1, large vessel with multiple branches. RCA: Ectatic with no significant obstructive stenosis. Abdominal aortogram: see aortic ane urysm.ABHINAV to mid LAD (3.0 X 16 Promus) per Dr. Tolliver @ [facility]. Aortic aneurysm (Chronic 02/02/12) Per Abdominal aortogram done during cath 02/02/2012 @ [place]: ectatic/aneurysmal infrarenal abdominal aorta. Right common iliac has an aneurysmal portion with a possible 40-50% stenosis in proximal portion. Right exertnal iliac and right common femoral arteries have mild luminal irregularities. Left common iliac has an aneurysmal portion in the proximal part. The right external iliac artery and right common femoral artery have mild luminal irregularities. Stented coronary artery (Chronic 06/21/18) ABHINAV to OM 1: 3.0 X [address] Loco @ [facility] 02/02/2012; ABHINAV to mid LAD (3.0 X 16 Promus) per Dr. Tolliver @ [facility]. Essential hypertension (Chronic) Hospital Course and Treatment Summary of Care Provided: The patient is a 68 year old M [] - Physical Exam Vital Signs Temp Pulse Resp BP Pulse Ox 98 F 57 L 18 133/73 H 95 06/30/18 13:30 06/30/18 17:00 06/30/18 17:00 06/30/18 17:00 06/30/18 17:00 Oxygen Flow Rate (L/min) 2 Oxygen Delivery Method Room Air Weight: 264 lb 12.403 oz Body Mass Index (BMI) 38.0 Intake and Output for Last 24 Hours 06/28/18 06/29/18 06/30/18 23:59 23:59 23:59 Intake Total 257 / 257 1030 / 1030 Output Total 900 / 900 3725 / 3725 450 / 450 Balance -643 / -643 -2695 / -2695 -450 / -450 Laboratory Tests Past 24 Hrs 06/30/18 06/30/18 06/30/18 05:15 05:15 05:15 WBC 6.6 RBC 4.64 Hgb 13.9 Hct 42.5 MCV 91.6 MCH 30.0 MCHC 32.7 RDW 13.9 RDW Differential 47.0 H Plt Count 238 MPV 10.2 Immature Gran % (Auto) 0.000 Neut % (Auto) 63.2 Lymph % (Auto) 25.7 Kleberg % (Auto) 7.9 Eos % (Auto) 3.0 Baso % (Auto) 0.2 Absolute Neuts (auto) 4.2 Absolute Lymphs (auto) 1.69 Total Counted Not Reportable PT 12.8 INR 1.0 APTT 25.1 Activated Clotting Time Sodium 140 Potassium 3.6 Chloride 104 Carbon Dioxide 28.0 Anion Gap 8 BUN 15 Creatinine 0.80 Estim Creat Clear Calc 92.52 Est GFR (MDRD) Af Amer 124 Est GFR (MDRD) Non-Af 102 BUN/Creatinine Ratio 18.8 Glucose 96 Calcium 8.7 06/30/18 11:12 WBC RBC Hgb Hct MCV MCH MCHC RDW RDW Differential Plt Count MPV Immature Gran % (Auto) Neut % (Auto) Lymph % (Auto) Kle[place] % (Auto) Eos % (Auto) Baso % (Auto) Absolute Neuts (auto) Absolute Lymphs (auto) Total Counted PT INR APTT Activated Clotting Time 180 H Sodium Potassium Chloride Carbon Dioxide Anion Gap BUN Creatinine Estim Creat Clear Calc Est GFR (MDRD) Af Amer Est GFR (MDRD) Non-Af BUN/Creatinine Ratio Glucose Calcium Code Visit Addendum: Dr. Ramirez I personally examined the patient and reviewed the chart. I agree with the above. 68-year-old male with past medical history of known coronary artery disease who had a stent placed about a month ago and he was to have another cath done next week however he was presenting with more frequent chest pain and so his cath was moved up to 10 a day. His cath was found to be normal. His right coronary artery was found to be normal and the site of his previous stent was shown to be patent. It was noted that he had more relief from the benzodiazepine that he did from morphine for his chest pain. At this time I do think that a lot of his symptomatology is related to anxiety and I recommended to him that he follow-up with his primary care physician to be started on either an antidepressant or therapy. Of note his EF was normal however he did have some slight diastolic dysfunction and therefore it was recommended by cardiology he be placed on Lasix 40 mg daily and losartan 25 mg daily. He is to follow-up with his primary care physician and cardiology as an outpatient. OBSV E&M: 16825 Observation care discharge
--- OUTSIDE RECORDS SUMMARY | 2018-08-10 16:30 | XMS RPT_ITS ---
:1950 Author Organization OHIP Support Name Relationship Address Phone KHADRA MCGUIRE Unavailable [address] + [place] [address] R Unavailable Unavailable KHADRA Jimenez Unavailable [address] + [place] [address] R Unavailable Unavailable KHADRA Jimenez Unavailable [address] + [place] [address] R Unavailable Unavailable KHADRA Jimenez Unavailable [address] + [place] [address] R Unavailable Unavailable KHADRA Jimenez Unavailable [address] + [place] [address] R Unavailable Unavailable KHADRA Jimenez Unavailable [address] + [place] [address] R Unavailable Unavailable KHADRA Jimenez Unavailable [address] + [place] [address] R Unavailable Unavailable KHADRA Jimenez Unavailable [address] + [place] [address] R Unavailable Unavailable KHADRA Jimenez Unavailable [address] + [place] [address] R Unavailable Unavailable KHADRA Jimenez Unavailable [address] + [place] [address] R Unavailable Unavailable KHADRA Jimenez Unavailable [address] + [place] [address] R Unavailable Unavailable KHADRA Jimenez Unavailable [address] + [place] [address] R Unavailable Unavailable KHADRA Jimenez Unavailable [address] + [place] [address] R Unavailable Unavailable KHADRA Jimenez Unavailable [address] + [place] [address] R Unavailable Unavailable Unavailable KHADRA MCGUIRE Unavailable [address] + [place] [address] R Unavailable Unavailable Unavailable KHADRA MCGUIRE Unavailable [address] + [place] [address] R Unavailable Unavailable Unavailable KHADRA MCGUIRE Unavailable [address] + [facility] [place] [address] R Unavailable Unavailable Unavailable KHADRA MCGUIRE Unavailable [address] + [place] [address] R Unavailable Unavailable Unavailable KHADRA MCGUIRE Unavailable [address] + [facility] [address] R Unavailable Unavailable Unavailable R Unavailable Unavailable Unavailable NOT GIVEN Unavailable Unavailable Unavailable KHADRA MCGUIRE Unavailable Unavailable + [place] [address] MCGUIREKHADRA [place]available [place] [address] NOT GIVEN Unavailable Unavailable Unavailable KHADRA MCGUIRE Unavailable Unavailable + [place] [address] KHADRA MCGUIRE Unavailable Unavailable Unavailable [facility] [address] NOT GIVEN Unavailable Unavailable Unavailable Care Team Providers Name Role Phone YADY WESLEY Admitting Unavailable YADY WESLEY Attending Unavailable HANSA SOLORZANO CNP Referring Unavailable YADY WESLEY Primary Care Unavailable HANSA SOLORZANO CNP Consulting Unavailable PROVIDER, UNKNOWN Consulting Unavailable PROVIDER, UNKNOWN Consulting Unavailable HANSA SOLORZANO CNP Admitting Unavailable HANSA SOLORZANO CNP Attending Unavailable HANSA SOLORZANO CNP Primary Care Unavailable HANSA SOLORZANO CNP Consulting Unavailable PROVIDER, UNKNOWN Consulting Unavailable PROVIDER, UNKNOWN Consulting Unavailable HANSA SOLORZANO CNP Admitting Unavailable HANSA SOLORZANO CNP Attending Unavailable HANSA SOLORZANO CNP Primary Care Unavailable HANSA SOLORZANO CNP Consulting Unavailable PROVIDER, UNKNOWN Consulting Unavailable PROVIDER, UNKNOWN Consulting Unavailable Ramo Tolliver Attending Unavailable Ramo Tolliver Referring Unavailable Sarai Harmon Attending Unavailable Hansa Solorzano Referring Unavailable Chun Vance Attending Unavailable Chun Vance Referring Unavailable Mal Lopes Attending Unavailable Hansa Solorzano Primary Care Unavailable Ramo Tolliver Attending Unavailable Hansa Solorzano Referring Unavailable Hill Zaidi Attending Unavailable Hill Jama Referring Unavailable Ramo Tolliver Attending Unavailable Ramo Tolliver Referring Unavailable Hansa Solorzano Primary Care Unavailable Ramo Tolliver Attending Unavailable Ramo Tolliver Referring Unavailable Hansa Solorzano Primary Care Unavailable Ramo Tolliver Consulting Unavailable Ramo Tolliver Attending Unavailable Ramo Tolliver Referring Unavailable Rashad, Hansa Primary Care Unavailable Ramo Tolliver Attending Unavailable Ramo Tolliver Referring Unavailable Rashad, Hansa Primary Care Unavailable Ramo Tolliver Admitting Unavailable Ramo Tolliver Attending Unavailable Ramo Tolliver Referring Unavailable Rashad, Hansa Primary Care Unavailable Ramo Tolliver Consulting Unavailable Rashad, Hansa Primary Care Unavailable Jama, Hill Admitting Unavailable Moodispaw, Hill Consulting Unavailable Kotsonis, Earl F Attending Unavailable Cody, Prasad Consulting Unavailable Jama, Hill Admitting Unavailable Jama, Hill Attending Unavailable Rashad, Hansa Primary Care Unavailable Jama, Hill Consulting Unavailable Ramo Tolliver Attending Unavailable Rashad, Hansa Primary Care Unavailable Ramo Tolliver Referring Unavailable Jama, Hill Admitting Unavailable Ramo Tolliver Attending Unavailable Rashad, Hansa Primary Care Unavailable Moodispaw, Hill Consulting Unavailable Kotsonis, Earl F Consulting Unavailable Jama, Hill Admitting Unavailable Rashad, Hansa Primary Care Unavailable Moodisp[place], Hill Consulting Unavailable Cody, Prasad Attending Unavailable Jama, Hill Referring Unavailable Cody, Prasad Consulting Unavailable Kotsonis, Earl F Consulting Unavailable Jama, Hill Admitting Unavailable Rashad, Hansa Primary Care Unavailable Moodisp[place], Hill Consulting Unavailable Kotsonis, Earl F Attending Unavailable Cody, Prasad Consulting Unavailable Kotsonis, Earl F Consulting Unavailable Jama, Hill Admitting Unavailable Rashad, Hansa Primary Care Unavailable Moodispaw, Hill Consulting Unavailable Kotsonis, Earl F Attending Unavailable Cody, Prasad Consulting Unavailable Kotsonis, Earl F Consulting Unavailable Ramo Tolliver Attending Unavailable Hansa Solorzano Referring Unavailable Ramo Tolliver Attending Unavailable Ramo Tolliver Referring Unavailable PROBLEMS PROBLEMS DATE TYPE CONDITION / CODE ATTENDING STATUS SOURCE 07/15/2018 Unknown J38.3 - Other Harmon, Active [facility] vocal [facility] cords / Hospital J38.3(ICD-10) Repository 07/06/2018 Unknown I25.10 - Ramo Tolliver Active [facility] Atherosclerotic [facility] heart disease of [facility] [place] coronary Repository artery without angina pectoris / I25.10(ICD-10) 07/06/2018 Unknown I10 - Essential Ramo Tolliver Active [facility] (primary) Community hypertension / Hospital I10(ICD-10) Repository 07/06/2018 Unknown R07.9 - Chest pain, Ramo Tolliver Active [facility] unspecified / Community R07.9(ICD-10) Hospital Repository 07/16/2018 Unknown R01.1 - Cardiac Mood[place], Active [facility] murmur, unspecified [facility] / R01.1(ICD-10) Hospital Repository 07/05/2018 Unknown R06.02 - Shortness Ramo Tolliver Active [place] of breath / Community R06.02(ICD-10) Hospital Repository 07/05/2018 Unknown I71.9 - Aortic Ramo Tolliver Active [place] aneurysm of Community unspecified site, Hospital without rupture / Repository I71.9(ICD-10) 07/05/2018 Unknown Z95.5 - Presence of Ramo Tolliver Active [place] coronary angioplasty Community implant and graft / Hospital Z95.5(ICD-10) Repository 07/05/2018 Unknown R40.0 - Somnolence / Ramo Tolliver Active [place] R40.0(ICD-10) [facility] Repository 07/05/2018 Unknown R06.00 - Dyspnea, Ramo Tolliver Active [place] unspecified / Community R06.00(ICD-10) Hospital Repository 04/19/2018 Principle Tinnitus, bilateral RASHAD, Active [facility] / H9313(ICD-10) [facility] Repository 03/25/2018 Admitting Shortness of breath RASHAD, Active [facility] Diagnosis / R0602(ICD-10) [facility] Repository 03/25/2018 Principle Shortness of breath RASHAD, Active [facility] Diagnosis / R0602(ICD-10) [facility] Repository 10/24/2017 Admitting Dizziness and WESLEYYADY HAN Active [facility] Diagnosis giddiness / [facility] R42(ICD-10) Hospital Repository 10/24/2017 Principle Dizziness and WESLEY MARWAN Active [facility] Diagnosis giddiness / [facility] R42(ICD-10) Hospital Repository 10/24/2017 Secondary Chronic sinusitis, WESLEY, MARWAN Active [facility] Diagnosis unspecified / [facility] J329(ICD-10) Hospital Repository 10/24/2017 Secondary Atherosclerotic YADY WESLEY Active [facility] heart disease of [facility] [place] coronary [facility] artery without Repository angina pectoris / I2510(ICD-10) 10/24/2017 Secondary Coronary angioplasty YADY WESLEY Active [facility] Diagnosis status / [facility] Z9861(ICD-10) Hospital Repository 10/24/2017 Secondary Allergy status to YADY WESLEY Active [facility] Diagnosis narcotic agent [facility] status / Hospital Z885(ICD-10) Repository PROCEDURES PROCEDURES No Procedure Records FoundRESULTS RESULTS PULMONARY VISIT REPORT Observed: 07/15/2018 Status: F Source: [place] 3:58 PM [facility] REPOSITORY [facility] [address] [place] [address] OFFICE VISIT Date of Service: 07/15/18 MR#: [id number] Acct: [id number] Name: KIRIT MCGUIRE Rep #: [id number] : 1950 Provider: Sarai Harmon Age/Sex: 68/M [place] [facility] [place] Status: Signed Assessment AND Plan 1. Vocal cord dysfunction J38.3 Plan Sending to speech therapy for evaluation and treatment. Follow- up in 6 weeks to evaluate his response to therapy. Contact the office with any new or worsening symptoms in the meantime. Orders Referrals: 2. Shortness of breath R06.02 Plan Most likely related to vocal cord dysfunction. Plan to obtain PFTs done at local medical clinic manager office for review. Follow-up in 6 weeks to discuss response to therapy and decide if there is any additional testing necessary. 3. PND (post-nasal drip) R09.82 Plan Quite possibly irritating and causing this gravelly cough that the patient is describing. Has previously failed on Flonase. Will try Dymista. Contact the office with any difficulties with the medication. Follow-up with Dr. Ross in 6 weeks. Plan Detail Other Medications New: azelastine-fluticasone 137-50 mcg/spray administer1 spray Intranasal BID 23 grams 6RF into each nostril Follow Up 6 Weeks (BWA) HPI HPI Comments Details: This is a 68 year old M, currently under the care of Hansa Solorzano APRN, here to follow up after a recent hospitalization at [facility], from June 28 - June 30, 2018 for chest pain (ACS ruled out), dyspnea on exertion and chronic diastolic dysfunction. The hospital stay was non-complicated. 25 pages of hospital documentation was reviewed, and found to be significant for chest x-ray completed on June 28, 2018 showing an indeterminate opacity within the right lateral lung which may be secondary to confluence of shadows. CTA of the chest completed on June 29 shows minimally dilated ascending thoracic aorta with a transverse dimension of 4.4 cm. Upon discharge, the patient was started on Lasix 40 mg daily. He continues to experience shortness of breath, that is not only on exertion but at times occurs when sitting still. He finds that meditation and breathing techniques relieve his shortness of breath best. He attempted to use an albuterol rescue inhaler which he stated made the symptoms worse and made him feel anxious. He admits that when the shortness of breath occurs he begins to have increasing anxiety which then worsens the shortness of breath. He describes the feeling as being underwater. Denies any chest pain or palpitations. He denies any lower extremity edema. He is not experience any wheezing, chest tightness, cough or hemoptysis. Denies any fever, chills or body aches. He does report chronic problems with postnasal drip. He was previously tried on Flonase by his primary care provider and he believed that it was not effective. Intake Vital Signs07/15/18 Height 5 ft 10 in 07/15/18 Weight: 259 lb 07/15/18 Body Mass Index (BMI) 37.1 Intake Visit Reasons: hospital f/u Accompanied by: Allergies codeine Adverse Reaction (Verified 07/15/18 11:33) High Fever Medications aspirin 81 mg tablet,delayed release 81 mg PO DAILY 05/31/18 [History Confirmed 07/15/18] diazepam 5 mg tablet 5 mg PO BID PRN tab 05/31/18 [History Confirmed 07/15/18] clopidogrel 75 mg tablet 75 mg PO DAILY #30 tab 06/15/18 [Rx Confirmed 07/15/18] Diazepam 2 mg PO QHS 06/29/18 [History Confirmed 07/15/18] Furosemide [Lasix] 40 mg PO DAILY #30 tab 06/30/18 [Rx Confirmed 07/15/18] Losartan Potassium [Cozaar] 25 mg PO DAILY #30 tab 06/30/18 [Rx Confirmed 07/15/18] atenolol 25 mg tablet 25 mg PO DAILY #30 tab 07/06/18 [Rx Confirmed 07/15/18] isosorbide mononitrate ER 30 mg tablet,extended release 24 hr 30 mg PO DAILY #30 tab 07/06/18 [Rx Confirmed 07/15/18] sertraline 50 mg tablet 50 mg PO DAILY 07/06/18 [History Confirmed 07/15/18] tamsulosin 0.4 mg capsule 0.8 mg PO DAILY cap 07/06/18 [History Confirmed 07/15/18] azelastine-fluticasone 137 mcg-50 mcg/spray nasal spray 1 spray INTRANASAL BID #23 g 07/15/18 [Rx Confirmed 07/15/18] [facility] Medical History Abnormal stress echocardiogram (Acute) 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/02/12) Aortic aneurysm (Chronic 02/02/12) Essential hypertension (Chronic) Shortness of breath (Acute) Anxiety and depression (Chronic) BPH (benign prostatic hyperplasia) (Chronic) Surgical History Stented coronary artery (Chronic 06/21/18) S/P sinus surgery (Acute 05/10/18) History of back surgery (Chronic) History of cholecystectomy (Chronic) History of hernia repair (Chronic) History of total left knee replacement (Chronic) Family History Mother Cancer Social History Smoking Status: Former smoker how long ago did patient quit smokin, 2ppd second hand exposure: Yes Review of Systems Const CONSTITUTIONAL: Positive fatigue; negative anorexia, body ache, chills, daytime sleepiness, fever(s), night sweats, oral thrush, stops breathing during sleep, weight loss, sleeping in chair, weight loss, weight gain, frequent colds, seasonal allergies, other, headache(s) or orthopnea EETM Ear Nose Throat Mouth: Positive hearing normal and post nasal drip; negative hard of hearing, hoarseness, dry mouth in morning, change in vision, itchy eyes, eye pain, swallowing Difficulty, ear pain, nose bleed, headache(s), mouth pain, nasal congestion, nasal discharge, sinus pain, sinus pressure, sore throat or other Cardio Cardiovascular: Positive murmur; negative chest pain, chest pain at rest, chest pain with activity, irregular heart rhythm, edema, shortness of breath when lying down, palpitations or other Resp Respiratory: Positive as per HPI and shortness of breath shortness of breath: Positive with activity; negative pain with cough, wheezing, chest congestion, cough, chest tightness, pain on inspiration, inhalers, increase use of rescue inhalers, snoring, apnea or other Gastro Gastrointestional: Negative bloody stools, change in appetite, difficulty swallowing, reflux, hematemesis, melena stool, loose stool, constipation or other Genitourinary: Negative blood in urine, nocturia, pain with urination or other Musc Musculoskeletal: Negative body pain, back pain, neck pain or other Skin/Breast Skin/Breast: Negative dry skin, itching, rash, unusual bruising, breast lump or other Neuro Neurological: Negative restless legs, confusion, weakness or other Psych Psychocological: Positive abnormal sleep pattern and anxiety; negative thoughts of hurting self/others, hopelessness or other Lymph Lymphatic: Negative easy bleeding, easy bruising, swollen lymph nodes or other Exam Const Constitutional: Positive conversant, cooperative, in no acute respiratory distress, healthy appearing, well developed, well nourished, good hygiene and obese Head Head: Positive normocephalic and atraumatic; negative cyanosis of lips/distal nose Eyes Eye: Positive clear conjunctiva; negative nystagmus or scleral abnormality Ears Ear: Positive hearing normal and external ears normal; negative hard of hearing Nose Nose: Positive external nose normal and no nasal discharge; negative epistaxis Mouth Mouth: Positive post nasal drip, oral mucosae normal, no lesions and crowded posterior oropharynx; negative malodorous breath or oral thrush present Mallampati Score: III: Mallampati Score Neck Neck: Positive normal visual inspection, full ROM and trachea midline; negative lymphadenopathy, JVD or tender Chest Wall Chest: Positive normal inspection of the chest and symmetric chest movement; negative increased A/P diameter Resp lung sounds: Positive clear to auscultation, good air exchange, normal expiratory time and normal respiratory effort; negative diminished, wheezes, rhonchi, rales, dullness to percussion or wheeze present on forced exhalation Cardio Cardiac: Positive murmur murmur: Positive systolic and RUSB, regular rate, regular rhythm, S1 normal and S2 normal GI GI: Positive normal to inspection and obese; negative distended Genitourinary: Positive deferred Musc Musculoskeletal: Positive steady gait and ROM normal; negative kyphosis or scoliosis Skin Pulmonary Skin Exam: Positive intact; negative rash Pulses Pulse: Yes pulses normal x4 extremities Extremities Extremities: Yes capillary refill normal, No clubbing, No cyanosis, Yes edema Location: lower extremity location: Bilateral pitting +1 Neuro Neurologic: Yes conversant, Yes no focal neuro deficits, Yes normal concentration, Yes understands questions, Yes cooperative, Yes normal cognition, No tremor, Yes normal coordination Lymph Lymphatic: No lymphadenopathy, No tenderness, No cervical adenopathy Psych Appearance: Positive grossly normal, eye contact and well kempt Mental Status: Positive mental status grossly normal Mood: Positive anxious mood Affect: Positive anxious affect Coding Level of Care Code Off vis,est,level 4 Diagnoses Vocal cord dysfunction J38.3 Shortness of breath R06.02 PND (post-nasal drip) R09.82 07/15/18 1558 <Electronically signed by Sarai MCGOWAN> Date Sarai MCGOWAN Cosigner Signature: Date (if applicable) CC: WAGNER [facility] CARDIOLOGY VISIT Observed: 07/06/2018 Status: F Source: [place] REPORT 1:51 PM [facility] REPOSITORY [facility] [address] [place] [address] OFFICE VISIT Date of Service: 07/06/18 MR#: [id number] Acct: [id number] Name: KIRIT MCGUIRE Rep #: [id number] : 1950 Provider: Ramo Tolliver MD Age/Sex: 68/M [place] [facility] [place] Status: Signed HPI HPI Chief Complaint: F/u after FFR Details: KIRIT MCGUIRE, is a 68 M former smoker who quit around 6 years ago after a 29-obld-aorh smoking history, sees Dr. Roach for pulmonary, who presents to the office today for shortness of breath and dyspnea on exertion which apparently has been going on for several months. Patient has a known history of coronary artery disease status post catheterization and angioplasty in 02/02/12 at [facility]. At that time he was found to have mild luminal irregularities of his proximal LAD, a 50-60% stenosis in his mid LAD and 80% ostial stenosis of diagonal #1 which was a small vessel. His ramus intermedius was small with mild disease, and a 90% stenosis of the proximal part of the obtuse marginal was noted. His RCA had nonobstructive coronary disease. He underwent successful angioplasty and drug-eluting stenting of the obtuse marginal #1 receiving a 3.0 816 Promus element stent. 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 At that time he had left-sided chest pain and shortness of breath. Patient recently visited the emergency room on 05/06/18 with a chief complaint of dyspnea on exertion. Pulmonary workup including an EKG which was negative as well as a chest x-ray which was negative. He was referred to us for his symptoms. In addition the patient apparently has possibly obstructive sleep apnea, but has not been fully evaluated as the patient developed anxiety during his last sleep study. Patient apparently underwent pulmonary function test in Dr. Roach's office several months ago and reportedly had no evidence of emphysema. Patient is tried MDIs to correct his dyspnea which have not improved things. His story started in late summer 2017 when he began developing significant shortness of breath. His initial episode occurred after he was eating breakfast at a kitchen table, try to get up and was profoundly weak, had trouble breathing, could not take a deep breath in. Patient went to the floor for several minutes, until his breathing improved. He described as if someone had knocked the wind out of him. He has never had a diaphragmatic stimulation test and has no history in his family of muscular skeletal or neurological diseases. Since that time patient has had progressively worsening dyspnea on exertion and shortness of breath which he describes as inability to take a deep breath in despite his brain commanding his diaphragm to inhale. He is taking and tolerating his medicines well he denies any exertional chest pain symptoms. Patient underwent diagnostic coronary angiogram on 06/21/18, and underwent angioplasty and stenting of his mid LAD receiving a 3.0 x 16 Promus stent, postdilated to 3.25 mm. His left circumflex stent was widely patent, and he had a questionable proximal RCA stenosis. He returned on 06/30/18 and underwent FFR evaluation of his proximal RCA which was negative and completely normal. He was also found to have congestive heart failure symptoms with an elevated LVEDP, and orthopnea and was treated with IV diuretic therapy with marked improvement. He is now here in follow-up. Since his discharge he has been doing relatively well, and his orthopnea has completely resolved. He has no edema. He has no chest pain or angina, and his shortness of breath has resolved as well. His blood pressures at home range between the 1 teens up to the 130s systolic. He has however complained of intermittent lightheadedness and dizziness over the last several days In our office his blood pressure is 90/42 but decreases to 60 systolic with standing up, pulse 68 and regular. His physical exam demonstrates clear lungs bilaterally, regular rate and rhythm, normal S1/S2, no S3-S4. He has no edema. His chest x-ray demonstrates that he has some diaphragmatic flattening, but no overt infiltrates. His PFTs are not included in his packet today. EKG dated 05/05/18 shows normal sinus rhythm/sinus bradycardia, normal axis, normal intervals. His lipids as of 06/22/18 show an LDL of 121 and HDL of 37. Repeat lipids are pending. Intake Vital Signs07/06/18 Blood Pressure 60/0 L 07/06/18 Blood Pressure Location Lt brachial 07/06/18 Blood Pressure Position Standing 07/06/18 Respiratory Rate 20 H Intake Visit Reasons: 2 WK F/U, UPDATE H AND P FOR PCI Edger Operator Required: No Accompanied by: Is patient in pain?: No Allergies codeine Adverse Reaction (Verified 07/06/18 13:35) High Fever Medications aspirin 81 mg tablet,delayed release 81 mg PO DAILY 05/31/18 [History Confirmed 07/06/18] diazepam 5 mg tablet 5 mg PO BID PRN tab 05/31/18 [History Confirmed 07/06/18] clopidogrel 75 mg tablet 75 mg PO DAILY #30 tab 06/15/18 [Rx Confirmed 07/06/18] Diazepam 2 mg PO QHS 06/29/18 [History Confirmed 07/06/18] Furosemide [Lasix] 40 mg PO DAILY #30 tab 06/30/18 [Rx Confirmed 07/06/18] Losartan Potassium [Cozaar] 25 mg PO DAILY #30 tab 06/30/18 [Rx Confirmed 07/06/18] atenolol 25 mg tablet 25 mg PO DAILY #30 tab 07/06/18 [Rx Confirmed 07/06/18] isosorbide mononitrate ER 30 mg tablet,extended release 24 hr 30 mg PO DAILY #30 tab 07/06/18 [Rx Confirmed 07/06/18] sertraline 50 mg tablet 50 mg PO DAILY 07/06/18 [History Confirmed 07/06/18] tamsulosin 0.4 mg capsule 0.8 mg PO DAILY cap 07/06/18 [History Confirmed 07/06/18] [facility] Medical History Abnormal stress echocardiogram (Acute) 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 Thinks bp med needs decr., dizzy AND lightheaded); negative for weakness, body ache, fever(s), chills, frequent falls, night sweats, daytime sleepiness, difficulty sleeping, weight gain, weight loss, increased appetite, poor appetite, anorexia, fatigue, excessive sweating or headache(s) Eyes Eyes: Negative for blind spots, loss of peripheral vision, transient loss of vision, blurry vision, change in vision, double vision, floaters, tunnel vision or other ENT ENT: Positive for dizziness; negative for headache(s), hearing loss, tinnitus, Nosebleed/epistaxis, post nasal drip, lip swelling, tongue swelling, bleeding gums, hoarseness, neck pain, dry mouth, other or balance problems Cardio Chest Pain: No Palpitations: No Edema: None Muscle aches with walking: None Resp Respiratory: Positive for SOB with activity and other (possible COPD, cath was ok); negative for SOB at rest, SOB orthopnea\SOB lying down, Cough, Coughing up blood/hemoptysis, chest congestion, pain on inspiration, snoring, stridor, wheezing, crackles or paroxysmal nocturnal dyspnea GI GI: Negative nausea, vomiting, heartburn, constipation, belching, bloating, cramping, vomiting blood/hematemesis, bright, red blood in stools, black,tarry stools, loose stools, Difficulty Swallowing or other : Negative for hematuria, frequent nighttime urination/ nocturia, erectile dysfunction or abnormal vaginal bleeding Musc Musc: Negative for balance problems, muscle aches/ myalgia, muscle weakness or joint pain Skin Skin: Negative redness, non-healing lesions, rash, unusual bruising, skin ulcer, wounds, jaundice or other Neuro Neuro: Positive for lightheadedness and dizziness; negative for near syncope, syncope, orthostatic symptoms, confusion, memory loss, restless legs, vertigo, seizures, lack of coordination, other, weakness, frequent falls, blurry vision, double vision or headache(s) Fritz Hematologic/Lymphatic: Negative for easy bleeding, easy bruising, enlarged lymph nodes or other Endo Endo: Negative for fatigue, excessive sweating, cold intolerance, heat intolerance, flushing, increased thirst/drinking, increased hunger, hair loss, hair growth or other Psych Psych: Negative for anxiety, depression, thoughts of harming anyone, thoughts of harming yourself, visual hallucinations, panic attacks or audible hallucinations Allergy Allergy/Immunology: Negative for throat swelling, Negative for hives, Negative for lip swelling, Negative for tongue swelling, Negative for rash Cardiology Exam Const Appearance: cooperative, healthy appearing and no acute distress Nutritional Appearance: well nourished Orientation: alert, oriented x3 and oriented to person Head Head: normal to inspection, atraumatic and normocephalic Nose: external nose normal Face and Sinus: face symmetric Mouth: oral mucosae normal Eyes General: appearance normal, both eyes and all related structures Eyelids: eyelids normal Conjunctivae: conjunctivae normal Pupils: PERRL and normal by confrontation EOM: EOM intact bilaterally Neck Neck: normal visual inspection and full ROM Carotids: normal carotid upstroke Chest Chest inspection: normal inspection of the chest Auscultation: Bilateral: Clear to Auscultation Cardio Palpation: normal PMI Rate: regular rate Rhythm: regular rhythm Heart sounds: S1 normal and S2 normal GI GI: normal to inspection, no hepatosplenomegaly and bowel sounds present Neuro General: alert, oriented x3, awake, CN's II-XI intact bilaterally and moves all extremities Skin Skin: no rashes or lesions noted Extremities Pulses: Normal: Right Femoral Pulse, Left Femoral Pulse, Right Dorsalis Pedis Pulse, Left Dorsalis Pedis Pulse, Right Posterior Tibial Pulse, Left Posterior Tibial Pulse, Right Radial Pulse, Left Radial Pulse Lower Extremity Edema: None: Bilateral Psych Psychological: normal affect Assessment AND Plan 1. Atherosclerotic heart disease of [place] coronary artery without angina pectoris I25.10 50-60% stenosis in mid LAD; 80% ostial stenosis of Diagonal 1, which is small. Ramus: small w/mild disease. LCX: 90% stenosis in proion in proximal part. Rt external iliac and rt common femoral have mild luminal irregularities.ximal OM1, large vessel with multiple branches. RCA: Ectatic with no significant obstructive stenosis. Abdominal aortogram: see aortic aneurysm.ABHINAV to mid LAD (3.0 X 16 Promus) per Dr. Tolliver @ [facility]. Plan 1. Coronary artery disease: No anginal symptoms at this time. His most recent FFR evaluation of his RCA was negative. No addition no stenting was performed. Relook at LAD stent showed it to be well healing and no additional stenting was performed. Would not recommend any additional stenting unless or until the patient has exertional anginal symptoms or evidence of inferior ischemia on stress testing. Orders Orders: 2. Essential hypertension I10 Plan 2. I recommend that we discontinue his atenolol/chlorthalidone, and just simply keep him on atenolol 25 mg p.o. daily. He will continue his baby aspirin and Plavix. In addition we will continue Lasix 40 mg a day for diastolic dysfunction and reduce his Imdur down to 30 mg a day. He will continue losartan 25 mg a day for hypertension and vascular remodeling. He will return in 2 weeks time for a blood pressure check. 3. Hyperlipidemia: Repeat lipid profile is pending. Continue statin based medications. His LDL should be less than 70. 4. Return office in 6 months. This note was generated using a voice recognition system and there may be incorrect words, spelling or punctuation that were not noted when reviewing the office note prior to saving. Orders Orders: Plan Detail Other Orders Orders: Other Medications New: Discontinued: isosorbide mononitrate ER Discontinued Reason: Order Chang60 mg PO DAILY 30 tabs 3RF ed Follow Up +6M (Unruly) Coding Level of Care Code Off vis,est,level 3 Diagnoses Atherosclerotic heart disease of [place] coronary artery without angina pectoris I25.10 Essential hypertension I10 Coding Level of Care Code Off vis,est,level 3 Diagnoses Atherosclerotic heart disease of [place] coronary artery without angina pectoris I25.10 Essential hypertension I10 07/06/18 1351 <Electronically signed by Ramo Tolliver MD> Date Ramo Tolliver MD Cosigner Signature: Date (if applicable) CC: WAGNER Solorzano 12 LEAD ELECTROCARDIOGRAM Observed: 07/02/2018 Status: F Source: [place] 2:01 PM [facility] REPOSITORY [facility] Cardiovascular Services [address] [place] [address] 12 Lead EKG 06/30/18 0541 MR#: [id number] Acct: [id number] Name: KIRIT MCGUIRE Rep #: [id number] : 1950 68 From: Edilberto Donahue MD Attending Dr: Earl Ramirez MD Status: DIS JACK Ordering Dr: Ramo Tolliver MD Date: 06/30/18 Location: ICU Sex: M C Admitted: 06/28/18 Test Reason : AM EKG Blood Pressure : / mmHG Vent. Rate : 050 BPM Atrial Rate : 050 BPM P-R Int : 162 ms QRS Dur : 112 ms QT Int : 466 ms P-R-T Axes : 015 -08 003 degrees QTc Int : 424 ms Sinus bradycardia Otherwise normal ECG When compared with ECG of 29-JUN-2018 02:53, MANUAL COMPARISON REQUIRED, DATA IS UNCONFIRMED Confirmed by EDILBERTO DONAHUE MD ([id number]), editor producer CHIO DAVEY ([id number]) on 07/02/2018 2:01:05 PM Referred By: DR STACK Confirmed By:EDILBERTO DONAHUE MD 07/02/18 1401 Date Edilberto Donahue MD CC: WAGNER Solorzano; DEAN OF EDUCATION-C Hansa Solorzano; Ramo Tolliver MD; Earl Ramirez MD Signed 12 LEAD ELECTROCARDIOGRAM Observed: 07/02/2018 Status: F Source: [place] 9:28 AM [facility] REPOSITORY [facility] Cardiovascular Services [address] [place] [address] 12 Lead EKG 06/28/18 1653 MR#: [id number] Acct: [id number] Name: KIRIT MCGUIRE Rep #: [id number] : 1950 68 From: Hill Zaidi MD Attending Dr: Earl Ramirez MD Status: DIS JACK Ordering Dr: Provider,Ed P. Date: 06/28/18 Location: ICU Sex: M C Admitted: 06/28/18 Test Reason : CP SOB Blood Pressure : / mmHG Vent. Rate : 060 BPM Atrial Rate : 060 BPM P-R Int : 110 ms QRS Dur : 106 ms QT Int : 444 ms P-R-T Axes : 030 030 049 degrees QTc Int : 444 ms Sinus rhythm Confirmed by HILL ZAIDI MD ([id number]), editor producer CHIO DAVEY ([id number]) on 06/30/2018 4:28:43 PM Referred By: Confirmed By:HILL ZAIDI MD 06/30/18 7956 Date Hill Ziadi MD CC: WAGNER Solorzano; JUAN M Solorzano; ED PHYSICIAN PROVIDER; Earl Ramirez MD Signed 12 LEAD ELECTROCARDIOGRAM Observed: 07/02/2018 Status: F Source: [place] 9:28 AM [facility] REPOSITORY [facility] Cardiovascular Services [address] [place] [address] 12 Lead EKG 06/28/18 1821 MR#: [id number] Acct: [id number] Name: KIRIT MCGUIRE Rep #: [id number] : 1950 68 From: Hill Zaidi MD Attending Dr: Earl Ramirez MD Status: DIS JACK Ordering Dr: Ananya Millard MD Date: 06/28/18 Location: ICU Sex: M C Admitted: 06/28/18 Test Reason : REPEAT Blood Pressure : / mmHG Vent. Rate : 061 BPM Atrial Rate : 061 BPM P-R Int : 154 ms QRS Dur : 096 ms QT Int : 442 ms P-R-T Axes : 051 021 024 degrees QTc Int : 444 ms Normal sinus rhythm Normal ECG Confirmed by DYAN TAM, HILL ([id number]), editor producer CHIO DAVEY ([id number]) on 06/30/2018 4:28:57 PM Referred By: HARINDER Confirmed By:HILL ZAIDI MD 06/30/18 1629 Date Hill Zaidi MD CC: WAGNER Solorzano; JUAN M Solorzano; Ananya Millard MD; Earl Ramirez MD Signed 12 LEAD ELECTROCARDIOGRAM Observed: 07/02/2018 Status: F Source: [place] 9:27 AM [facility] REPOSITORY [facility] Cardiovascular Services [address] [place] [address] 12 Lead EKG 06/29/18 0253 MR#: [id number] Acct: [id number] Name: KIRIT MCGUIRE Rep #: [id number] : 1950 68 From: Hill Zaidi MD Attending Dr: Earl Ramirez MD Status: DIS JACK Ordering Dr: Hill Jama MD Date: 06/29/18 Location: ICU Sex: M C Admitted: 06/28/18 Test Reason : CP Blood Pressure : / mmHG Vent. Rate : 055 BPM Atrial Rate : 055 BPM P-R Int : 164 ms QRS Dur : 092 ms QT Int : 430 ms P-R-T Axes : 021 -02 001 degrees QTc Int : 411 ms Sinus bradycardia Confirmed by DYAN TAM, HILL ([id number]), editor producer CHIO DAVEY ([id number]) on 06/30/2018 3:33:26 PM Referred By: DR JAMA Confirmed By:HILL ZAIDI MD 06/30/18 1533 Date Hill Zaidi MD CC: WAGNER Solorzano; DEAN OF EDUCATION-C Hansa Solorzano; Earl Ramirez MD; Hill Jama MD Signed 12 LEAD ELECTROCARDIOGRAM Observed: 07/02/2018 Status: F Source: [place] 9:27 AM [facility] Cardiovascular Services [address] [place] [address] 12 Lead EKG 06/28/182055 MR#: [id number] Acct: [id number] Name: KIRIT MCGUIRE Rep #: [id number] : 1950 68 From: Hill Zaidi MD Attending Dr: Earl Ramirez MD Status: DIS JACK Ordering Dr: Hill Jama MD Date: 06/28/18 Location: ICU Sex: M C Admitted: 06/28/18 Test Reason : CP ADMIT Blood Pressure : / mmHG Vent. Rate : 052 BPM Atrial Rate : 052 BPM P-R Int : 154 ms QRS Dur : 102 ms QT Int : 462 ms P-R-T Axes : 012 -02 005 degrees QTc Int : 429 ms Sinus bradycardia Confirmed by DYAN TAM, HILL ([id number]), editor producer CHIO DAVEY ([id number]) on 06/30/2018 3:34:27 PM Referred By: DR JAMA Confirmed By:HILL ZAIDI MD 06/30/18 1534 Date Hill Zaidi MD CC: WAGNER Solorzano; DEAN OF EDUCATION-C Hansa Solorzano; Earl Ramirez MD; Hill Jama MD Signed 12 LEAD ELECTROCARDIOGRAM Observed: 07/02/2018 Status: F Source: [place] 9:19 AM [facility] REPOSITORY [facility] Cardiovascular Services [address] [place] [address] 12 Lead EKG 06/21/18 1210 MR#: [id number] Acct: [id number] Name: KIRIT MCGUIRE Crystal Rep #: [id number] : 1950 68 From: Edilberto Donahue MD Attending Dr: Ramo Tolliver MD Status: DIS JACK Ordering Dr: Ramo Tolliver MD Date: 06/21/18 Location: ICU Sex: M C Admitted: 06/21/18 Test Reason : POST STENT Blood Pressure : / mmHG Vent. Rate : 057 BPM Atrial Rate : 057 BPM P-R Int : 128 ms QRS Dur : 100 ms QT Int : 450 ms P-R-T Axes : 045 031 025 degrees QTc Int : 438 ms Sinus bradycardia Otherwise normal ECG When compared with ECG of 05-MAY-2018 23:54, No significant change was found Confirmed by EDILBERTO DONAHUE MD ([id number]), editor producer BONI MCGUIRE ([id number]) on 06/25/2018 2:04:54 PM Referred By: Ramo Tolliver Confirmed By:EDILBERTO DONAHUE MD 06/25/18 1404 Date Edilberto Donahue MD CC: MARKETING PROJECT COORDINATOR Hansa Solorzano; DEAN OF EDUCATION-C Hansa Solorzano; Ramo Tolliver MD Signed DISCHARGE SUMMARY Observed: 06/30/2018 Status: F Source: [place] 5:18 PM [facility] REPOSITORY [facility] Medical Records Department [address] [place] [address] Discharge Summary 06/30/18 1630 MR#: [id number] Acct: [id number] Name: KIRIT MCGUIRE Rep #: [id number] : 1950 68 From: Diana MCGOWAN PCP: Hansa Solorzano APRN Status: ADM JACK Y Location: ICU [id number] <Diana Jones - Last Filed: 06/30/18 16:42> Discharge Date and Diagnosis Date of Admission: 06/28/18 Date of Discharge: 06/30/18 - Primary Discharge Diagnosis Active and Suspected Problems (Last Updated 06/22/18 @ 09:16 by Emily Knox) 1. Chest pain, ACS ruled out 2. Dyspnea on exertion, suspected secondary to chronic diastolic dysfunction 3. CAD status post PCI 4. Hypertension 5. Anxiety/depression 6. BPH - Secondary Discharge Diagnosis Chronic Problems (Last Updated 06/22/18 @ 09:16 by Emily Knox) 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 Ramus: small w/mild disease. LCX: 90% stenosis in proion in proximal part. Rt external iliac and rt common femoral have mild luminal irregularities.ximal OM1, large vessel with multiple branches. RCA: Ectatic with no significant obstructive stenosis. Abdominal aortogram: see aortic aneurysm.ABHINAV to mid LAD (3.0 X 16 Promus) per Dr. Tolliver @ [facility]. Aortic aneurysm (Chronic 02/02/12) Per Abdominal aortogram done during cath 02/02/2012 @ [facility]: ectatic/aneurysmal infrarenal abdominal aorta. Right common iliac has an aneurysmal portion with a possible 40-50% stenosis in proximal portion. Right exertnal iliac and right common femoral arteries have mild luminal irregularities. Left common iliac has an aneurysmal portion in the proximal part. The right external iliac artery and right common femoral artery have mild luminal irregularities. Stented coronary artery (Chronic 06/21/18) ABHINAV to OM 1: 3.0 X [address] Loco @ [facility] 02/02/2012; ABHINAV to mid LAD (3.0 X 16 Promus) per Dr. Tolliver @ [facility]. Essential hypertension (Chronic) Hospital Course and Treatment Imaging Results: Diagnostic Data Chest X-Ray 06/28/18 17:30 IMPRESSION: Indeterminate opacity within the right lateral lung, this may be secondary to a confluence of shadows, consider PA and lateral images or chest CT for further characterization. Electronically Signed: Gladys Pizano MD at 18:10 EST Tel , Service support , Chest CTA 06/29/18 08:57 IMPRESSION: Minimally dilated ascending thoracic aorta with a transverse dimension of 4.4 cm. Electronically Signed: Bennie Greenfield MD at 10:41 EST Tel [phone], Service support , Dr. Tolliver-Cardiology Dr. Ross- Pulmonary Medicine Operations: None Procedures: - - FFR of proximal and mid RCA Summary of Care Provided: The patient is a 68 year old M admitted 06/28/2018 due to chest pain. 1. Chest pain-cardiology following. Negative FFR of proximal and mid RCA. LAD stent patent. Troponin negative. Continue aspirin, Plavix. Not on statin. Recent lipid panel within normal limits. Follow-up with Dr. Tolliver in 1-2 weeks. 2. Dyspnea on exertion/chronic diastolic dysfunction-dyspnea reported to be ongoing. He has been seeing Dr. Roach, pulmonary medicine with recent normal PFTs. Pulmonary medicine consulted. Chest CTA with minimally dilated ascending thoracic aorta with a transverse dimension of 4.4 cm. Small hiatal hernia. Otherwise no pulmonary abnormalities. SOB possibly due to chronic diastolic dysfunction. Echocardiogram 06/09/2018 with EF 65%, stage I diastolic dysfunction, RVSP estimated be 26 mmHg. Patient started on Lasix 40 mg daily. Recommend follow-up with Dr. Ross in 1-2 weeks for further outpatient pulmonary evaluation. 3. CAD status post PCI-Follows with Dr. Tolliver. Continue aspirin, Plavix, beta-oneal. Does not appear to be on statin. 4. Hypertension-stable, continue home atenolol, isosorbide regimen. Losartan 25 mg daily added. 5. Anxiety/depression-poorly controlled. Continue home diazepam, sertraline regimen. Recommend outpatient follow-up with counseling. 6. BPH-continue home tamsulosin regimen. 7. Unclear recent neurologic events-patient complains of episodes of intermittent weakness which instability occur at rest. He was evaluated by a neurologist in [facility] and was reported to have a normal CT of brain. Recommend continued outpatient follow-up with primary neurologist. General: Alert, Oriented x3, Cooperative HEENT: Atraumatic, PERRLA, EOMI, Normocephalic Neck: Supple, No JVD, Negative Carotid Bruits Lungs: Clear to auscultation, Normal air movement Cardiovascular: Regular rate, Regular Rhythm, Normal S1, Normal S2, No murmurs Abdomen: Bowel Sounds Present, Soft, Non Tender, Non-Distended Extremities: No clubbing, No cyanosis, No edema, Capillary Refill Less than 3 Seconds Skin: No rashes, No breakdown Musculoskeletal: No Tenderness to Palpation of Joints or Extremities Neurological: Cranial nerves II-XII grossly intact, Neuro grossly intact Psych/Mental Status: Normal Affect, Appropriate Patient seen and examined prior to discharge. Physical assessment as noted above. Patient is stable for discharge with follow up recommendations as noted above. This patient was seen by JUAN M Wren under the supervision of Dr. Ramirez. - Physical Exam Vital Signs Temp Pulse Resp BP Pulse Ox 98 F 58 L 18 117/63 93 06/30/18 13:30 06/30/18 16:00 06/30/18 16:00 06/30/18 16:00 06/30/18 16:00 Oxygen Flow Rate (L/min) 2 Oxygen Delivery Method Room Air Weight: 264 lb 12.403 oz Body Mass Index (BMI) 38.0 Intake and Output for Last 24 Hours Intake Total 257 / 257 1030 / 1030 Output Total 900 / 900 3725 / 3725 450 / 450 Balance -643 / -643 -2695 / -2695 -450 / -450 Laboratory Tests Past 24 Hrs WBC RBC Hgb Hct MCV MCH MCHC RDW RDW Differential Plt Count MPV Immature Gran % (Auto) Neut % (Auto) Discharge Diet: Low fat/ Low Cholesterol Discharge Activity: - - Follow post-op cath instructions Call your doctor if you observe: Shortness of breath, Dizziness, Fainting spells, Chest pain Home Medications: Medications to take at Discharge aspirin 81 mg tablet,delayed release 81 mg PO DAILY 05/31/18 atenolol 50 mg-chlorthalidone 25 mg tablet 0.5 tab PO DAILY tab 05/31/18 diazepam 5 mg tablet 5 mg PO BID PRN tab 05/31/18 tamsulosin 0.4 mg capsule 8 mg PO QHS 05/31/18 clopidogrel 75 mg tablet 75 mg PO DAILY #30 tab 06/15/18 Isosorbide Mononitrate [Imdur] 60 mg PO DAILY #30 tablet 06/22/18 Oxymetazoline HCl [12 Hour Nasal Relief] 2 spray NASAL TID 06/28/18 Diazepam 2 mg PO QHS 06/29/18 Fluticasone Furoate 1 spray NASAL QODAY 06/29/18 Levofloxacin 1 tablet PO QODAY 06/29/18 Meclizine HCl 1 tablet PO TID 06/29/18 Sertraline HCl [Zoloft] 1 tablet PO QODAY 06/29/18 Vitamin B Complex 1 tablet PO QODAY 06/29/18 Furosemide [Lasix] 40 mg PO DAILY #30 tablet 06/30/18 Losartan Potassium [Cozaar] 25 mg PO DAILY #30 tablet 06/30/18 Following Prescrptions Were Given to Patient: Furosemide [Lasix] 40 mg PO DAILY #30 tablet Losartan Potassium [Cozaar] 25 mg PO DAILY #30 tablet Primary Care Physician: Hansa Solorzano, RN [Primary Care Provider] - Please follow up with your Primary Care Physician in: 1 Week Please Follow Up With: Ramo Tolliver MD - May seen DEAN OF EDUCATION/PA When: 2 Weeks Please Follow Up With: Prasad Ross MD - May see DEAN OF EDUCATION When: 1-2 Weeks Please Follow Up With: Counselor When: 1 Week, Recommend outpatient counseling for anxiety Disposition: Home Minutes spent on discharge:: 35 Patient Condition:: Stable Medical Necessity - Tobacco Use Smoking Status: Former smoker Tobacco Use: Cigarettes Meaningful Use Info Meaningful Use Diagnoses (Choose all that apply): None applicable <Earl Ramirez - Last Filed: 06/30/18 17:17> Discharge Date and Diagnosis - Secondary Discharge Diagnosis Chronic Problems (Last Updated 06/22/18 @ 09:16 by Emily Knox) 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 Ramus: small w/mild disease. LCX: 90% stenosis in proion in proximal part. Rt external iliac and rt common femoral have mild luminal irregularities.ximal OM1, large vessel with multiple branches. RCA: Ectatic with no significant obstructive stenosis. Abdominal aortogram: see aortic aneurysm.ABHINAV to mid LAD (3.0 X 16 Promus) per Dr. Tolliver @ [facility]. Aortic aneurysm (Chronic 02/02/12) Per Abdominal aortogram done during cath 02/02/2012 @ [facility]: ectatic/aneurysmal infrarenal abdominal aorta. Right common iliac has an aneurysmal portion with a possible 40-50% stenosis in proximal portion. Right exertnal iliac and right common femoral arteries have mild luminal irregularities. Left common iliac has an aneurysmal portion in the proximal part. The right external iliac artery and right common femoral artery have mild luminal irregularities. Stented coronary artery (Chronic 06/21/18) ABHINAV to OM 1: 3.0 X [address] Loco @ [facility] 02/02/2012; ABHINAV to mid LAD (3.0 X 16 Promus) per Dr. Tolliver @ [facility]. Essential hypertension (Chronic) Hospital Course and Treatment Summary of Care Provided: The patient is a 68 year old M [] - Physical Exam Vital Signs Temp Pulse Resp BP Pulse Ox 98 F 57 L 18 133/73 H 95 06/30/18 13:30 06/30/18 17:00 06/30/18 17:00 06/30/18 17:00 06/30/18 17:00 Oxygen Flow Rate (L/min) 2 Oxygen Delivery Method Room Air Weight: 264 lb 12.403 oz Body Mass Index (BMI) 38.0 Intake and Output for Last 24 Hours Intake Total 257 / 257 1030 / 1030 Output Total 900 / 900 3725 / 3725 450 / 450 Balance -643 / -643 -2695 / -2695 -450 / -450 Laboratory Tests Past 24 Hrs WBC RBC Hgb Hct MCV MCH MCHC RDW RDW Differential Plt Count MPV Immature Gran % (Auto) Neut % (Auto) Code Visit Addendum: Dr. Ramirez I personally examined the patient and reviewed the chart. I agree with the above. 68-year-old male with past medical history of known coronary artery disease who had a stent placed about a month ago and he was to have another cath done next week however he was presenting with more frequent chest pain and so his cath was moved up to 10 a day. His cath was found to be normal. His right coronary artery was found to be normal and the site of his previous stent was shown to be patent. It was noted that he had more relief from the benzodiazepine that he did from morphine for his chest pain. At this time I do think that a lot of his symptomatology is related to anxiety and I recommended to him that he follow- up with his primary care physician to be started on either an antidepressant or therapy. Of note his EF was normal however he did have some slight diastolic dysfunction and therefore it was recommended by cardiology he be placed on Lasix 40 mg daily and losartan 25 mg daily. He is to follow-up with his primary care physician and cardiology as an outpatient. OBSV E AND M: 16022 Observation care discharge 06/30/181642 <Electronically signed by Diana MCGOWAN> Date Diana GREERC 06/30/181717<Electronically signed by Earl Ramirez MD> Cosigner Signature (if applicable): Date Earl Ramirez MD CC: WAGNER Solorzano; JUAN M Solorzano; JUAN M Jones; Earl Ramirez MD; Isaac Solorzano MD Signed DISCHARGE INSTRUCTION Observed: 06/30/2018 Status: F Source: [place] 4:28 PM [facility] REPOSITORY [facility] Medical Records Department [address] [place] [address] Instructions for Home/Discharge Instructions 06/30/18 1623 MR#: [id number] Acct: [id number] Name: KIRIT MCGUIRE Rep #: [id number] : 1950 68 From: Diana MCGOWAN PCP: Hansa Solorzano APRN Status: ADM JACK - Discharge Diagnoses Current Active Problems: Current Active and Chronic Problems (Last Updated 06/22/18 @ 09:16 by Emily Knox) Chest pain (Acute) You will use the following diet at home:: Cardiac Discharge Activity: - - Follow post-op cath instructions Call your doctor if you observe: Shortness of breath, Dizziness, Fainting spells, Chest pain Allergies/Adverse Reactions: Allergies codeine Adverse Reaction (Verified 06/28/18 16:48) High Fever Medications to take at Discharge aspirin 81 mg tablet,delayed release 81 mg PO DAILY 05/31/18 atenolol 50 mg-chlorthalidone 25 mg tablet 0.5 tab PO DAILY tab 05/31/18 diazepam 5 mg tablet 5 mg PO BID PRN tab 05/31/18 tamsulosin 0.4 mg capsule 8 mg PO QHS 05/31/18 clopidogrel 75 mg tablet 75 mg PO DAILY #30 tab 06/15/18 Isosorbide Mononitrate [Imdur] 60 mg PO DAILY #30 tablet 06/22/18 Oxymetazoline HCl [12 Hour Nasal Relief] 2 spray NASAL TID 06/28/18 Diazepam 2 mg PO QHS 06/29/18 Fluticasone Furoate 1 spray NASAL QODAY 06/29/18 Levofloxacin 1 tablet PO QODAY 06/29/18 Meclizine HCl 1 tablet PO TID 06/29/18 Sertraline HCl [Zoloft] 1 tablet PO QODAY 06/29/18 Vitamin B Complex 1 tablet PO QODAY 06/29/18 Furosemide [Lasix] 40 mg PO DAILY #30 tablet 06/30/18 Losartan Potassium [Cozaar] 25 mg PO DAILY #30 tablet 06/30/18 The following prescriptions were given: Furosemide [Lasix] 40 mg PO DAILY #30 tablet Losartan Potassium [Cozaar] 25 mg PO DAILY #30 tablet Primary Care Physician: Hansa Solorzano, RN [Primary Care Provider] - Please follow up with your Primary Care Physician in: 1 Week Test Results: Test results from this visit will be discussed in further detail at your follow-up appointment, if applicable. Please Follow Up With: Ramo Tolliver MD - May seen DEAN OF EDUCATION/PA When: 2 Weeks Please Follow Up With: Prasad Ross MD - May see DEAN OF EDUCATION When: 1-2 Weeks Please Follow Up With: Counselor When: 1 Week, Recommend outpatient counseling for anxiety Proposed Discharge Date: 06/30/18 06/30/181627 <Electronically signed by Diana Jones DEAN OF EDUCATION-C> Date Diana Jones [employer]UC[employer]-C CC: WAGNER Solorzano; DEAN OF EDUCATION-C Hansa Solorzano; Prasad Ross MD; Hill Zaidi MD ACT ACTIVATED CLOTTING Collected: 06/30/2018 Status: F Source: [place] TIME 11:12 AM [facility] REPOSITORY TYPE CODE TESTS RESULT OUT OF RANGE REFERENCE UNITS LAB L9100.0100 74-137 sec High ACTk CLOT 180 TIME Performed By: #### L9100.0100 #### [facility] Point of Care [address] [place] [address] [id number] PROTHROMBIN TIME W/INR Collected: 06/30/2018 Status: F Source: [place] 5:15 AM [facility] REPOSITORY TYPE CODE TESTS RESULT OUT OF RANGE REFERENCE UNITS LAB L300.4150 11.7-14.9 SECONDS Normal PROTIME 12.8 LAB L300.4200 Normal INR 1.0 Performed By: #### L300.3900, L300.4310 #### [facility] [address] [place] [address], [address] PARTIAL THROMBOPLAST Collected: 06/30/2018 Status: F Source: [place] TIME 5:15 AM [facility] REPOSITORY TYPE CODE TESTS RESULT OUT OF RANGE REFERENCE UNITS LAB L300.4310 24.1-36.2 Seconds Normal PTT 25.1 Performed By: #### L300.3900, L300.4310 #### [facility] [address] [place], [place], [id number] BASIC METABOLIC Collected: 06/30/2018 Status: F Source: [place] PROFILE (BMP) 5:15 AM [facility] REPOSITORY TYPE CODE TESTS RESULT OUT OF RANGE REFERENCE UNITS LAB L501.0100 74-106 mg/dL Normal GLU 96 Result Comment: Please note revised GLUCOSE reference range effective 2017. LAB L501.1000 7-18 mg/dL Normal BUN 15 LAB L501.1100 0.70-1.30 mg/dL Normal CREAT,SERUM 0.80 Result Comment: The validity of the calculated GFR AND GFRAA in patients over 70 years has not been determined. Clinical correlation is essential. LAB L501.1110 >60 mL/min Normal EST GFR 102 Result Comment: Non- GFR Calc LAB L501.1115 >60 mL/min Normal EST GFR - AA 124 Result Comment: GFR Calc LAB L501.1255 ml/min Normal Estimated CRCL 92.52 LAB L501.1300 10-20 RATIO Normal BUN/CRE 18.8 LAB L501.2200 8.5-10 mg/dL Normal .1 CA 8.7 LAB L501.5300 136-14 mmol/L Normal 5 NA 140 LAB L501.5600 3.5-5. mmol/L Normal 1 K 3.6 LAB L501.5900 98-107 mmol/L Normal CL 104 LAB L501.6100 21.0-3 mmol/L Normal 2.0 CO2 28.0 LAB L501.6200 5-15 Normal GAP 8 Performed By: #### L500.2500 #### [facility] [address] [place], [address] CBC W/DIFF, AUTOMATED Collected: 06/30/2018 Status: F Source: [place] 5:15 AM [facility] REPOSITORY TYPE CODE TESTS RESULT OUT OF RANGE REFERENCE UNITS LAB L100.1000 4.4-11.0 K/mm3 Normal WBC 6.6 LAB L100.1200 4.6-6.2 M/mm3 Normal RBC 4.64 LAB L100.1300 13.0-16.5 g/dl Normal HGB 13.9 LAB L100.1400 40-54 % Normal HCT 42.5 LAB L100.1500 80-94 fL Normal MCV 91.6 LAB L100.1600 27.0-32.0 pg Normal MCH 30.0 LAB L100.1700 32-36 g/gl Normal MCHC 32.7 LAB L100.1810 11.6-14.6 % Normal RDW CV 13.9 LAB L100.1820 35.1-43.9 fl High RDW SD 47.0 LAB L100.1900 150-450 K/mm3 Normal PLT 238 LAB L100.2000 6.2-12.0 fl Normal MPV 10.2 LAB L100.2100 47-70 % Normal NEUT% 63.2 LAB L100.2200 19-41 % Normal LY% 25.7 LAB L100.2300 0-10 % Normal MONO% 7.9 LAB L100.2400 0-5 % Normal EO% 3.0 LAB L100.2500 0-1 % Normal BASO% 0.2 LAB L100.2550 0.0-0.9 % Normal IM GRAN % 0.000 Result Comment: IG% - Immature Granulocytes (promyelocytes, myelocytes and metamyelocytes) > 1% indicates that a LEFT SHIFT is Present. LAB L100.2620 2.0-7.7 X10 3/uL Normal Absolute Neut 4.2 LAB L100.2720 0.83-4.51 X10 3/ul Normal Absolute Lymph 1.69 Performed By: #### L100.0100 #### [facility] [address] [facility] [place], [address] CONSULTATION Observed: 06/29/2018 Status: F Source: [place] 4:14 PM [facility] REPOSITORY [facility] Medical Records Department [address] [place] [address] Consultation 06/29/18 1456 MR#: [id number] Acct: [id number] Name: KIRIT MCGUIRE Rep #: [id number] : 1950 68 From: Sarai MCGOWAN PCP: Hansa Solorzano APRN Status: ADM JACK Y Location: [place] [address] ADDENDUM by Prasad Ross MD on 06/29/18 at 1614 Code Visit Patient seen and examined independently in conjunction with nurse practitioner. All data, including note below, was personally reviewed and I agree with the added comments. In brief, patient is a 68-year-old male that presented with shortness of breath. Patient was recently seen and diagnosed with angina. Patient has had a stent to his left coronary circulation, but still has right coronary disease. Patient had been reporting increased shortness of breath over the last 4 months. This is episodic, sometimes associated with chest pain and last 15-20 minutes at a time. Patient estimates 3-6 episodes per day. Patient states this can come on with rest and improves with meditation. Patient has had pulmonary function tests completed previously by Dr. Roach, but these are not available for review. Patient does have extensive smoking history, but quit 5 years ago. Patient states he has used albuterol in the past with minimal improvement. Physical exam was independently performed and I agree as listed below. Patient's lungs were clear to auscultation. No wheezes, rales or rhonchi were appreciated. No murmurs were appreciated. Patient did not have any lower extremity edema. Patient was saturating 97% on 2 L nasal cannula. Patient has been diuresed over the course of the hospitalization by approximately 2 L. Laboratory data shows a normal troponin, no leukocytosis and a slightly elevated bicarbonate at 27. Assessment and plan Will attempt to obtain patient's pulmonary function test for review from Dr. Roach's office. Patient may have an element of asthma, vocal cord dysfunction or anxiety disorder. Patient does report some intermittent chest pain, but this is not always present with the dyspnea, so it is unclear if this is related to anginal equivalent from remaining right-sided lesion. Nebulizers would be reasonable for now. Further recommendations after PFTs are available for review. Inpatient E AND M: [id number] Init Hosp L2 06/29/18 1614 <Electronically signed by Prasad Ross MD> Date Prasad Ross MD cc: WAGNER Solorzano; DE[employer] EDUCATION-C Hansa Solorzano; Prasad Ross MD; Hill Zaidi MD * Signed Problem List (1) Shortness of breath Status: Acute Reason for Consult Date of Consultation: 06/29/18 - Shortness of breath, possible PE History of Present Illness: The patient is a 68 year old M who presented to the emergency department on June 28, 2018 with complaints of shortness of breath. He reports that not only is he complaining of shortness of breath but he also has associated substernal chest pain. He was treated in the emergency department with morphine and later Ativan. According to documentation it appears as though the Ativan was more helpful in relieving his shortness of breath and substernal chest pain than the morphine. Vital signs were fairly stable with the exception of slight hypertension. Initial laboratories were reviewed and found to be noncontributory. CTA of the chest was completed on June 29, 2018 and was negative for pulmonary embolism, did document right base atelectasis. The patient reports that the shortness of breath has been troublesome for the past 4 months. The episodes occur anywhere from 3-6 times daily, lasting from 15-20 minutes at a time. The shortness of breath comes on suddenly, no triggers can be identified. The patient reports that once the shortness of breath has been realized he becomes very anxious and symptoms progress. Typically this episode comes on when he is at a resting state. Alleviating factors that he has noticed are effective R meditation, yoga, exercise (push- ups), breathing exercises, the use of his incentive spirometer, and most often he states that the most effective treatment is distraction. He has tried albuterol nebulizer and has found that it has not helped his symptoms at all. When the episodes occur he describes them as feeling like his head is being held under water and he cannot get a deep breath. He reports some associated light pain in the left side of his chest, he points to the area of the heart. He also reports occasionally some light pain to his right back area. He describes them as 2 separate pains, not a radiating pain. He does report that approximately 4 months ago he experienced a sudden dull weakness that resulted in him ending up on the floor. At the time he was sitting on his couch eating a bowl of cereal at approximately 2 AM. When this dull weakness occurred he ended up on the floor. He lost all his ability to speak. After several minutes he was able to get out a squeak that awakened his . She reports that when she found him he was cold and clammy. She cleaned him up with some bath towels. They did not seek immediate attention, at some point did follow up with primary care which resulted in a pretty thorough workup. He did have a pulmonary function test regarding the shortness of breath which he reports showed possible asthma. He also reports that he was seen by neurology regarding this dull weakness, denies that he was diagnosed with CVA, TIA or even migraine. After several minutes of this dull weakness he did regain 100% of his strength and complete speech back. He does report over the past week he has been using his incentive spirometer anywhere between 15-20 times per day. He states that he is able to pull the device completely to the top with each breath. He smoked 2-1/2 packs a day of cigarettes for approximately 27 years, quitting totally 5 years ago. He did have a brief time when he used smokeless tobacco to quit smoking he denies any illicit drug use. He has not had any alcohol in the past 10 years. 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 Ramus: small w/mild disease. LCX: 90% stenosis in proion in proximal part. Rt external iliac and rt common femoral have mild luminal irregularities.ximal OM1, large vessel with multiple branches. RCA: Ectatic with no significant obstructive stenosis. Abdominal aortogram: see aortic aneurysm.ABHINAV to mid LAD (3.0 X 16 Promus) per Dr. Tolliver @ [facility]. Aortic aneurysm (Chronic 02/02/12) Per Abdominal aortogram done during cath 02/02/2012 @ [facility]: ectatic/aneurysmal infrarenal abdominal aorta. Right common iliac has an aneurysmal portion with a possible 40-50% stenosis in proximal portion. Right exertnal iliac and right common femoral arteries have mild luminal irregularities. Left common iliac has an aneurysmal portion in the proximal part. The right external iliac artery and right common femoral artery have mild luminal irregularities. Stented coronary artery (Chronic 06/21/18) ABHINAV to OM 1: 3.0 X [address] Loco @ [facility] 02/02/2012; ABHINAV to mid LAD (3.0 X 16 Promus) per Dr. Tolliver @ [facility]. Essential hypertension (Chronic) Medical History: Medical History (Last Updated 06/22/18 @ 09:16 by Emily Knox) Abnormal stress echocardiogram (Acute) R94.39 Atherosclerotic heart disease of [place] coronary artery without angina pectoris (Chronic) Onset Date: 02/02/12 I25.10 50-60% stenosis in mid LAD; 80% ostial stenosis of Diagonal 1, which is small. Ramus: small w/mild disease. LCX: 90% stenosis in proion in proximal part. Rt external iliac and rt common femoral have mild luminal irregularities.ximal OM1, large vessel with multiple branches. RCA: Ectatic with no significant obstructive stenosis. Abdominal aortogram: see aortic aneurysm.ABHINAV to mid LAD (3.0 X 16 Promus) per Dr. Tolliver @ [facility]. Aortic aneurysm (Chronic) Onset Date: 02/02/12 I71.9 Per Abdominal aortogram done during cath 02/02/2012 @ [facility]: ectatic/aneurysmal infrarenal abdominal aorta. Right common iliac has an aneurysmal portion with a possible 40-50% stenosis in proximal portion. Right exertnal iliac and right common femoral arteries have mild luminal irregularities. Left common iliac has an aneurysmal portion in the proximal part. The right external iliac artery and right common femoral artery have mild luminal irregularities. Essential hypertension (Chronic) I10 Shortness of breath (Acute) R06.02 Anxiety and depression F41.9, F32.9 BPH (benign prostatic hyperplasia) N40.0 Allergies codeine Adverse Reaction (Verified 06/28/18 16:48) High Fever Home Medications: Ambulatory Orders Medication Instructions Recorded aspirin 81 mg tablet,delayed 81 mg PO DAILY 05/31/18 release atenolol 50 mg-chlorthalidone 25 0.5 tab PO DAILY tab 05/31/18 Surgical History: Surgical History (Last Updated 06/22/18 @ 09:15 by Emily Knox) Stented coronary artery (Chronic) Onset Date: 06/21/18 Z95.5 ABHINAV to OM 1: 3.0 X [address] Loco @ [facility] 02/02/2012; ABHINAV to mid LAD (3.0 X 16 Promus) per Dr. Tolliver @ [facility]. S/P sinus surgery Onset Date: 05/10/18 Z98.[address] 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 Denies: Orthopnea, Palpitations Respiratory: Reports: Pleuritic Pain, Shortness of Breath, Shortness of breath at rest. Denies: Cough, Hemoptysis, Shortness of breath upon exertion, Sputum production, Wheezing Gastrointestinal: Denies: Abdominal Pain, Constipation Genitourinary: Denies: Dysuria Musculoskeletal: Denies: Arm Pain Skin: Denies: Dryness Neurological: Denies: Balance problems, Change in Speech, Slurred speech, Difficulty swallowing, Headaches, Incoordination, Numbness, Tingling Psychiatric: Reports: Anxiety Endocrine: Denies: Change in Body Habitus Hematologic/ Lymphatic: Denies: Adenopathy, Anemia Patient Problems: Active and Suspected Problems (Last Updated 06/22/18 @ 09:16 by Emily Knox) Chest pain (Acute) Subjective: Patient reports that he was having 1 of his episodes when I entered the hospital room today. He was complaining of shortness of breath and substernal chest discomfort. As the exam and interview pursued the shortness of breath and chest discomfort completely resolved within a few minutes. He states that the distraction from the interview relieved his anxiety and symptoms. - Physical Exam General: Alert, Oriented x3, Cooperative, No apparent distress HEENT: Atraumatic Oral: Moist Mucosa Neck: Supple, No Nodes, Trachea Midline Lungs: Clear to auscultation, Normal air movement, No rhonchi, No wheeze, No rales Cardiovascular: Regular rate, Regular Rhythm, Normal S1, Normal S2, No murmurs Extremities: No clubbing, No cyanosis, No edema, Capillary Refill Less than 3 Seconds Skin: No rashes Musculoskeletal: No Tenderness to Palpation of Joints or Extremities, No Muscle Wasting Lymphatic: No Cervical, Supraclavicular, or Inguinal Adenopathy Neurological: Cranial nerves II-XII grossly intact, Neuro grossly intact, Motor Exam 5/5 strength throughout Psych/Mental Status: Anxious Vital Signs Temp Pulse Resp BP Pulse Ox 98.4 F 62 17 142/82 H 97 06/29/18 08:22 06/29/18 11:14 06/29/18 08:22 06/29/18 08:22 06/29/18 08:22 Oxygen Flow Rate (L/min) 2 Oxygen Delivery Method Nasal Cannula Weight: 264 lb 12.403 oz Body Mass Index (BMI) 38.0 Intake and Output for Last 24 Hours Intake Total 257 / 257 110 / 110 Output Total 900 / 900 1375 / 1375 Balance -643 / -643 -1265 / -1265 Laboratory Tests Past 24 Hrs WBC RBC Hgb Hct MCV MCH MCHC WBC 6.9 RBC 4.58 L Hgb 14.0 Hct 42.5 MCV 92.8 MCH 30.6 MCHC 32.9 RDW 13.7 RDW Differential 45.5 H Plt Count 226 MPV 10.5 Immature Gran % (Auto) Assessment/Plan All Active Problems (Last Updated 06/22/18 @ 09:16 by Emily Knox) Chest pain (Acute) Abnormal stress echocardiogram (Acute) Shortness of breath (Acute) RECOMMENDATIONS: 1. Obtain a copy of patient's pulmonary function test from Dr. Roach's office 2. Continue supplemental oxygen as needed to maintain saturations 89-92% 3. Continue albuterol nebulizer every 4 hours as needed for shortness of breath or wheezing 4. Continue budesonide by nebulizer for now 5. Incentive spirometer every 2 hours while awake 1. Short of breath: Is of unclear etiology at this time. Possible diagnoses include vocal cord dysfunction, asthma, anxiety disorder. Need to review pulmonary function testing. If indicated patient may require further workup by ENT with regard to possible vocal cord dysfunction. If vocal cord dysfunction is determined to be the cause, biofeedback would be appropriate. Continue meditation and breathing techniques as the patient has been performing to alleviate his shortness of breath in the meantime. Follow-up in the outpatient setting for further workup. 2. Substernal chest pain: Question if this may be related to CAD and pending stent placement. It is possible that the chest pain is then eliciting anxiety and shortness of breath. Defer management to cardiology. 3. Anxiety: Consider treatment with antidepressant focusing on anxiolytic properties. Defer management to hospitalist. 4. CAD: Needs exam, plan, care and prognosis. Defer management to cardiology. Thank you for the consultation and the opportunity to participate in this patient's care. This note was generated with EDMdesigneration software. It may contain incorrect words, spelling, and punctuation that were not noted in checking the note before signing. 06/29/18 1545 <Electronically signed by Sarai MCGOWAN> Date Sarai MCGOWAN Cosigner Signature (if applicable): Date CC: WAGNER Solorzano; ZOEYC Hansa Solorzano; Prasad Ross MD; Hill Zaidi MD Signed CONSULTATION Observed: 06/29/2018 Status: F Source: [place] 9:31 AM [facility] REPOSITORY [facility] Medical Records Department [address] [place] [address] Consultation 06/29/18 0916 MR#: [id number] Acct: [id number] Name: KIRIT MCGUIRE Rep #: [id number] : 1950 68 From: Ramo Tolliver MD PCP: Hansa Solorzano APRN Status: ADM JACK Y Location: [place] [address] Problem List (1) Chest pain Status: Acute (2) Abnormal stress echocardiogram Status: Acute (3) Atherosclerotic heart disease of [place] coronary artery without angina pectoris Status: Chronic Comment: 50-60% stenosis in mid LAD; 80% ostial stenosis of Diagonal 1, which is small. Ramus: small w/mild disease. LCX: 90% stenosis in proion in proximal part. Rt external iliac and rt common femoral have mild luminal irregularities.ximal OM1, large vessel with multiple branches. RCA: Ectatic with no significant obstructive stenosis. Abdominal aortogram: see aortic aneurysm.ABHINAV to mid LAD (3.0 X 16 Promus) per Dr. Tolliver @ [facility]. (4) Aortic aneurysm Status: Chronic Comment: Per Abdominal aortogram done during cath 02/02/2012 @ [facility]: ectatic/aneurysmal infrarenal abdominal aorta. Right common iliac has an aneurysmal portion with a possible 40-50% stenosis in proximal portion. Right exertnal iliac and right common femoral arteries have mild luminal irregularities. Left common iliac has an aneurysmal portion in the proximal part. The right external iliac artery and right common femoral artery have mild luminal irregularities. (5) Stented coronary artery Status: Chronic Comment: ABHINAV to OM 1: 3.0 X [address] Loco @ [facility] 02/02/2012; ABHINAV to mid LAD (3.0 X 16 Promus) per Dr. Tolliver @ [facility]. (6) Essential hypertension Status: Chronic (7) Shortness of breath Status: Acute Reason for Consult Date of Consultation: 06/29/18 Reason for Consultation: Unstable angina, shortness of breath, anxiety, peripheral vascular disease, hypertension, hypercholesterolemia, reactive airway disease. History of Present Illness: KIRIT MCGUIRE, is a 68 M former smoker who quit around 6 years ago after a 18-[id number]-sejl smoking history, sees Dr. Roach for pulmonary, who initially presented to our office on 06/01/18 in consultation for shortness of breath and dyspnea on exertion which apparently has been going on for several months. Patient has a known history of coronary artery disease status post catheterization and angioplasty in 02/02/12 at [facility]. At that time he was found to have mild luminal irregularities of his proximal LAD, a 50-60% stenosis in his mid LAD and 80% ostial stenosis of diagonal #1 which was a small vessel. His ramus intermedius was small with mild disease, and a 90% stenosis of the proximal part of the obtuse marginal was noted. His RCA had nonobstructive coronary disease. He underwent successful angioplasty and drug-eluting stenting of the obtuse marginal #1 receiving a 3.0 x 16 Promus element stent. 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 At that time he had left- sided chest pain and shortness of breath. Subsequent to that, the patient underwent an bilateral aorto iliac stent grafting. Patient recently visited the emergency room on 05/06/18 with a chief complaint of dyspnea on exertion. Pulmonary workup including an EKG which was negative as well as a chest x-ray which was negative. He was referred to us for his symptoms. In addition the patient apparently has possibly obstructive sleep apnea, but has not been fully evaluated as the patient developed anxiety during his last sleep study. Patient apparently underwent pulmonary function test in Dr. Roach's office several months ago and reportedly had no evidence of emphysema per the patient however we are trying to get those results. Patient is tried MDIs to correct his dyspnea which have not improved things. He does have oxygen containers at home, and periodically uses them. His story started about 3 months ago when he began developing significant shortness of breath. His initial episode occurred after he was eating breakfast at a kitchen table, try to get up and was profoundly weak, had trouble breathing, could not take a deep breath in. Patient fell to the floor and remained on the floor for about 25 minutes unable to move. Despite this impressive event, he did not seek medical attention until later on. Apparently he saw a neurologist in [place], had a CT scan which showed no acute stroke, and apparently has had difficulty breathing ever since. He described as if someone had knocked the wind out of him. He has never had a diaphragmatic stimulation test and has no history in his family of muscular skeletal or neurological diseases. Since that time patient has had progressively worsening dyspnea on exertion and shortness of breath which he describes as inability to take a deep breath in despite his brain commanding his diaphragm to inhale. He is taking and tolerating his medicines well he denies any exertional chest pain symptoms. Patient recently underwent a treadmill echocardiogram in which he went about 6 minutes, had a hyperdynamic LV response to exercise with an EF of 75%, and had no overt ischemia by echocardiogram. Given his severe dyspnea on exertion he underwent left heart catheterization about 2 weeks ago which demonstrated significant progression of his mid LAD stenosis. Patient underwent successful angioplasty and stenting of his LAD. At that time he was also found to have possibly significant proximal RCA stenosis. He was scheduled to return next week for FFR evaluation and possible stenting of same. Despite the stenting of his LAD the patient guarded no benefit with respect to shortness of breath in particular recumbent dyspnea. The patient states that he is unable to lay down flat as he feels he cannot get enough air. When I asked him whether he can inflate his diaphragm to the maximum, he reports that he just cannot breathe with the same repetition that he used to. He has never had a CT scan. In addition when he gets short of breath and anxious he developed substernal chest pain as well. He reported to the emergency room last night and his EKG showed sinus bradycardia with no acute changes. His troponins have been negative x3. [] Past Medical History Allergies/Adverse Reactions: Allergies codeine Adverse Reaction (Verified 06/28/18 16:48) High Fever Home Medications: Ambulatory Orders Medication Instructions Recorded aspirin 81 mg tablet,delayed 81 mg PO DAILY 05/31/18 release atenolol 50 mg-chlorthalidone 25 0.5 tab PO DAILY tab 05/31/18 Past Medical History (Chronic Problems): Chronic Problems (Last Updated 06/22/18 @ 09:16 by Emily Knox) 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 Ramus: small w/mild disease. LCX: 90% stenosis in proion in proximal part. Rt external iliac and rt common femoral have mild luminal irregularities.ximal OM1, large vessel with multiple branches. RCA: Ectatic with no significant obstructive stenosis. Abdominal aortogram: see aortic aneurysm.ABHINAV to mid LAD (3.0 X 16 Promus) per Dr. Tolliver @ [facility]. Aortic aneurysm (Chronic 02/02/12) Per Abdominal aortogram done during cath 02/02/2012 @ [facility]: ectatic/aneurysmal infrarenal abdominal aorta. Right common iliac has an aneurysmal portion with a possible 40-50% stenosis in proximal portion. Right exertnal iliac and right common femoral arteries have mild luminal irregularities. Left common iliac has an aneurysmal portion in the proximal part. The right external iliac artery and right common femoral artery have mild luminal irregularities. Stented coronary artery (Chronic 06/21/18) ABHINAV to OM 1: 3.0 X [address] Loco @ [facility] 02/02/2012; ABHINAV to mid LAD (3.0 X 16 Promus) per Dr. Tolliver @ [facility]. 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 Denies: PND, Peripheral Edema, Palpitations, Lightheadedness, Dizziness, Near Syncope, Syncope Respiratory: Denies: Cough, Sputum Production, Hemoptysis Gastrointestinal: Denies: Hematemesis, Hematochezia, Melena Genitourinary: Denies: Dysuria, Hematuria Skin: Denies: Rash Subjectve: Patient sitting up in bed, on oxygen, no acute distress. Objective: Vital Signs Temp Pulse Resp BP Pulse Ox 98.4 F 56 L 17 142/82 H 97 06/29/18 08:22 06/29/18 08:22 06/29/18 08:22 06/29/18 08:22 06/29/18 08:22 Oxygen Flow Rate (L/min) 2 Oxygen Delivery Method Nasal Cannula Weight: 264 lb 12.403 oz Body Mass Index (BMI) 38.0 Intake and Output for Last 24 Hours Intake Total 257 / 257 20 / 20 Output Total 900 / 900 1075 / 1075 Balance -643 / -643 -1055 / -1055 General: Awake, Alert, Oriented x 3 HEENT: PERRL, EOMI, Sclera Non Icteric Neck: Supple, Good ROM, No Lymph Node Enlargement Lungs: Clear to auscultation Cardiovascular: Regular Rhythm, Normal S1, Normal S2, No Murmurs, No Rubs, No Gallops Vascular: No Carotid Bruits, Normal Femoral Pulses, Normal Radial Pulses, Normal Dorsalis Pedal Pulse, Normal Posterior Tibial Pulses Abdomen: Bowel Sounds Present, Soft, Non Tender, No HSM, No Organomegaly Extremities: No Cyanosis, No Clubbing, No edema Neurological: No Focal Motor or Sensory Deficit 06/28/18 16:55: WBC 7.7, RBC 4.39 L, Hgb 13.2, Hct 40.0, MCV 91.1, MCH 30.1, MCHC 33.0, RDW 13.8, RDW Differential 45.7 H, Plt Count 231, MPV 10.1, Immature Gran % (Auto) 0.400, Neut % (Auto) 62.9, Lymph % (Auto) 27.0, [place] % (Auto) 6.0, Eos % (Auto) 3.3, Baso % (Auto) 0.4, Absolute Neuts (auto) 4.8, Total Counted Not Reportable 06/28/18 16:55: Sodium 137, Potassium 3.8, Chloride 104, Carbon Dioxide 27.0, Anion Gap 6, BUN 22 H, Creatinine 0.83, Est GFR (MDRD) Af Amer 119, Est GFR (MDRD) Non-Af 98, BUN/Creatinine Ratio 26.5 H, Glucose 103, Calcium 8.4 L, Troponin I < 0.015 06/28/18 21:13: Troponin I < 0.015 06/28/18 23:22: Troponin I < 0.015 06/29/18 02:17: Troponin I < 0.015 06/29/18 05:40: Sodium 143, Potassium 3.9, Chloride 107, Carbon Dioxide 26.0, Anion Gap 10, BUN 17, Creatinine 0.81, Est GFR (MDRD) Af Amer 122, Est GFR (MDRD) Non-Af 101, BUN/Creatinine Ratio 20.9 H, Glucose 106, Calcium 8.7 06/29/18 05:40: WBC 6.9, RBC 4.58 L, Hgb 14.0, Hct 42.5, MCV 92.8, MCH 30.6, MCHC 32.9, RDW 13.7, RDW Differential 45.5 H, Plt Count 226, MPV 10.5 Rhythm: EKG: Sinus bradycardia, no acute changes. ECHO: 06/09/18 The estimated ejection fraction is 65 %. Stage 1 diastolic dysfunction. Trivial mitral valve insufficiency. Trivial tricuspid valve insufficiency. Right ventricular systolic pressure estimated to be 26 mmHg. There is no comparison study available. Stress Test: As above Cardiac Cath: As above PCI: CT Surgery: Holter monitor: EPS: PPM: CXR: Chest CT Scan: Assessment/Plan 1. Dyspnea: Patient has multiple possibilities for his dyspnea including underappreciated COPD given his greater than 56-gmtb-wjar smoking history, diaphragmatic dysfunction or flattening of his diaphragm due to chronic hyperinflation, possible undiagnosed pulmonary embolism, side effect from his beta-oneal causing bronchospasm, or coronary artery disease. To help differentiate the possible diagnoses, I recommended he undergo a CTA of his chest to evaluate whether he may have had a undiagnosed pulmonary embolism, as well as to assess the parenchyma of his lung. In addition we will try and get his pulmonary function test from Dr. Roach's office. Also recommended a pulmonary consultation with Dr. Prasad Ross to help evaluate whether or not he requires different medications for his pulmonary issues. Patient may require a 6-minute walk test or diaphragmatic stimulation test to determine if he has any diaphragmatic issues. His symptoms sound more pulmonary rather than cardiac however he does have known intrinsic coronary artery disease. He apparently garnered no pulmonary benefit from his recent angioplasty and stenting of his LAD and he has a planned FFR evaluation of his proximal RCA moved up from next week to tomorrow morning given his recurrent chest pain symptoms. Of also recommended he discontinue his atenolol as this may be producing bronchospasm and switching him to Bystolic 2.5 mg daily. 2. Coronary artery disease: Patient is scheduled for FFR evaluation of his proximal RCA tomorrow morning. He will require a long sheath to negotiate his aortoiliac disease and previous aortoiliac stenting. If his FFR is even closely abnormal I would recommend percutaneous intervention to remove coronary ischemia from contributing to his dyspnea. 3. Neurological abnormalities: A proximally 3 months ago, the patient apparently got up from a sitting position and then fell to the floor profoundly weak for unknown reasons. He reportedly had a CAT scan done by an outside facility in [place] and saw a neurologist. According to the patient he laid motionless for approximately 25 minutes on the floor and may have some neurological issues that require further investigation by a neurologist. Apparently the patient may have also some psychosomatic issues as apparently he was traumatized by holding his father as he was dying of cardiac failure. This may require psychiatric assistance. 4. Hyperlipidemia: Continue antilipid therapy. Will repeat lipid profile after cardiac rehab is been completed. 5. Thank you very much for the opportunity to participate in the cardiac care of your patient. Consultation time took place between 845 and 9:30 AM. Code Visit Inpatient E AND M: [id number] Init Hosp L2 06/29/18 0931 <Electronically signed by Ramo Tolliver MD> Date Ramo Tolliver MD Cosigner Signature (if applicable): Date CC: WAGNER Solorzano; DEAN OF EDUCATION-C Hansa Solorzano; Hill Zaidi MD Signed CTA CHEST W/WO Observed: 06/29/2018 Status: F Source: [place] CONTRAST 9:01 AM [facility] REPOSITORY [facility] Imaging Services [address] [place] [id number] CTA Chest W/WO Contrast MR#: [id number] Acct: [id number] Name: KIRIT MCGUIRE Rep #: [id number] : 1950 M 68 From: Bennie Greenfield MD PCP: Hansa Solorzano APRN Status: ADM JACK Study: CTA Chest W/WO Contrast Date of Exam: 06/29/18 Exam# [id number] Ordering Dr: Ramo Tolliver MD STUDY: CTA CHEST REASON FOR EXAM: Male, 68 years old. Chest pain. Shortness of breath. Hypertension. History of aortic aneurysm. RADIATION DOSAGE (If Supplied By Facility): CTDIvol = ( 18.38 ) mGy, DLP = ( 771.10 ) mGycm TECHNIQUE: The examination was performed with the intravenous administration of 100 ml of Isovue 370 contrast material. Post-processing of the angiographic images was performed, with multiplanar reformation and 3D reconstruction. Individualized dose optimization techniques were used for this CT. COMPARISON: None. FINDINGS: Normal enhancement of the main pulmonary artery and right and left pulmonary arteries. Normal enhancement of the bilateral peripheral pulmonary arteries. There is no demonstrated pulmonary embolism. There is atherosclerotic calcification of the aortic arch with tortuosity. The ascending thoracic aorta is slightly dilated measuring 4.4 cm in transverse dimension. There is no demonstrated aortic dissection. There are calcifications of the coronary arteries. Normal mediastinum. Normal hilar regions. Normal visualized trachea and bronchi. The lungs are well expanded. Minimal increased markings at the right lung base suggestive of atelectasis. Normal pleura. Normal chest wall structures. There are degenerative changes of thoracic spine. Small hiatal hernia. CT/CTA Chest W/WO Contrast IMPRESSION: Minimally dilated ascending thoracic aorta with a transverse dimension of 4.4 cm. Electronically Signed: Bennie Greenfield MD at 10:41 EST Tel [phone], Service support , CC: WAGNER Solorzano; Ramo Tolliver MD Entry Level Drafter: Signed CBC-COMPLETE BLOOD CNT Collected: 06/29/2018 Status: F Source: [place] NO DIFF 5:40 AM [facility] REPOSITORY TYPE CODE TESTS RESULT OUT OF RANGE REFERENCE UNITS LAB L100.1000 4.4-11.0 K/mm3 Normal WBC 6.9 LAB L100.1200 4.6-6.2 M/mm3 Low RBC 4.58 LAB L100.1300 13.0-16.5 g/dl Normal HGB 14.0 LAB L100.1400 40-54 % Normal HCT 42.5 LAB L100.1500 80-94 fL Normal MCV 92.8 LAB L100.1600 27.0-32.0 pg Normal MCH 30.6 LAB L100.1700 32-36 g/gl Normal MCHC 32.9 LAB L100.1810 11.6-14.6 % Normal RDW CV 13.7 LAB L100.1820 35.1-43.9 fl High RDW SD 45.5 LAB L100.1900 150-450 K/mm3 Normal PLT 226 LAB L100.2000 6.2-12.0 fl Normal MPV 10.5 Performed By: #### L100.0500, L500.2500, L501.9520 #### [facility] [address] [place], [place], [id number] BASIC METABOLIC Collected: 06/29/2018 Status: F Source: [place] PROFILE (BMP) 5:40 AM [facility] REPOSITORY TYPE CODE TESTS RESULT OUT OF RANGE REFERENCE UNITS LAB L501.0100 74-106 mg/dL Normal GLU 106 Result Comment: Fasting Glucose result from 100 to 125 mg/dL suggests IMPAIRED HOMEOSTASIS per A.D.A. criteria. Please note revised GLUCOSE reference range effective 2017. LAB L501.1000 7-18 mg/dL Normal BUN 17 LAB L501.1100 0.70-1.30 mg/dL Normal CREAT,SERUM 0.81 Result Comment: The validity of the calculated GFR AND GFRAA in patients over 70 years has not been determined. Clinical correlation is essential. LAB L501.1110 >60 mL/min Normal EST GFR 101 Result Comment: Non- GFR Calc LAB L501.1115 >60 mL/min Normal EST GFR - AA 122 Result Comment: GFR Calc LAB L501.1255 ml/min Normal Estimated CRCL 91.38 LAB L501.1300 10-20 RATIO High BUN/CRE 20.9 LAB L501.2200 8.5-10 mg/dL Normal .1 CA 8.7 LAB L501.5300 136-14 mmol/L Normal 5 NA 143 LAB L501.5600 3.5-5. mmol/L Normal 1 K 3.9 LAB L501.5900 98-107 mmol/L Normal CL 107 LAB L501.6100 21.0-3 mmol/L Normal 2.0 CO2 26.0 LAB L501.6200 5-15 Normal GAP 10 Performed By: #### L100.0500, L500.2500, L501.9520 #### [facility] [address] [place], [place], [id number] THYROID STIM HORMONE Collected: 06/29/2018 Status: F Source: [place] (TSH) 5:40 AM [facility] REPOSITORY TYPE CODE TESTS RESULT OUT OF RANGE REFERENCE UNITS LAB L501.9520 0.358-3.74 uIU/mL High TSH 5.13 Performed By: #### L100.0500, L500.2500, L501.9520 #### [facility] [address] [place], [address] TROPONIN-I Collected: 06/29/2018 Status: F Source: [place] 2:17 AM [facility] REPOSITORY Order Comment: 'TROP' Serial specimen #1, #2 or #3: 3 TYPE CODE TESTS RESULT OUT OF RANGE REFERENCE UNITS LAB L501.4010 <0.045 ng/mL Normal < 0.015 TROPONIN-I Result Comment: TROPONIN-I EXPECTED VALUES <0.045 Negative 0.045 - 0.590 Consistent with Cardiac Damage > OR = 0.600 Critical Value Not every elevated troponin is indicative of PA. These values should be used with clinical judgement in examining the patient's clinical picture for diagnosis. To establish a diagnosis of PA versus myocardial injury, there must be a demonstrated rise and/or fall in the troponin values, in addition to ischemic symptoms, EKG changes, new regional wall motion abnormality, and/or angiographical evidence. PLEASE NOTE: REFERENCE RANGES EDITED 17 Performed By: #### L501.4010 #### [facility] [address] [place], [address] EMERGENCY DEPARTMENT Observed: 06/29/2018 Status: F Source: [place] SUMMARY 12:27 AM [facility] REPOSITORY [facility] Medical Records Department [address] [place] [address] Emergency Department Summary 06/28/18 2237 MR#: [id number] Acct: [id number] Name: KIRIT MCGUIRE Rep #: [id number] : 1950 68 From: Ananya Millard MD PCP: Hansa Solorzano APRN Status: ADM JACK - ER Visit Summary Date of Service: 06/28/18 Chief Complaint: Chest pain History of Present Illness: The patient is a 68 M who had a heart cath last week after a several month history of shortness of breath. He had one stent placed to the LAD and is scheduled to have a stent placed in the RCA. Patient states that is supposed to be done this week. He did not know any difference in his shortness of breath after the initial stent was placed. Today while sitting at rest he developed some chest pressure that lasted 35-40 minutes. Patient states the chest pressure improved after taking a Valium and using his incentive spirometer. Physical Examination: Vital signs are unremarkable. His pulse ox is 97% on room air. Patient sitting upright in bed no acute distress. Head neck examination normal. Heart is regular rate and rhythm. Lungs sounds clear. Abdomen is soft nontender. Lower extreme examination reveals no significant edema. Test Results: EKG is sinus at 60 with no sign of acute ischemia. Portable chest x-ray shows indeterminate opacity in the right lateral lung field which may be confluence of shadows. CBC and chemistry studies normal. Troponin is less than 0.015. Emergency Department Course and Treatment: Patient was given aspirin. While in the emergency room patient developed some chest heaviness again. Repeat EKG is unchanged. Patient systolic blood pressure was only 110 at the time so nitro was not given. He was given 4 mg of morphine and 4 mg of Zofran. Nursing staff states that that made his shortness of breath worse if anything. He was then given 0.5 mg of IV Ativan and his shortness of breath significantly improved. At this time patient will be admitted for further treatment. He will be evaluated by cardiology to determine if he needs his cath sooner rather than later. Dr. Donahue and hospitalist have both been contacted. Treatment Plan: [] Disposition: Admit Impression: Chest pain This note was generated with Par[employer] dictation software. It may contain incorrect words, spelling, and punctuation that were not noted in review of the chart prior to signing ED Disposition - Plan for ED Patient: Disposition: Acute Care Hospital [facility] Chief Complaint: Chest Pain What to do if you have Problems For any increased pain, shortness of breath, bleeding, nausea or vomiting, chest pain, or any unexpected problems, contact your Primary Care Provider. Call [facility] ([phone]) or report to the closest Emergency Room. Call 911 if necessary. 06/29/18 0027 <Electronically signed by Ananya Millard MD> Date Ananya Kang Signature (If Indicated): Date CC: WAGNER Solorzano; DEAN OF EDUCATION-C Hansa Solorzano TROPONIN-I Collected: 06/28/2018 Status: F Source: [place] 11:22 PM [facility] REPOSITORY Order Comment: 'TROP' Serial specimen #1, #2 or #3: 2 TYPE CODE TESTS RESULT OUT OF RANGE REFERENCE UNITS LAB L501.4010 <0.045 ng/mL Normal < 0.015 TROPONIN-I Result Comment: TROPONIN-I EXPECTED VALUES <0.045 Negative 0.045 - 0.590 Consistent with Cardiac Damage > OR = 0.600 Critical Value Not every elevated troponin is indicative of PA. These values should be used with clinical judgement in examining the patient's clinical picture for diagnosis. To establish a diagnosis of PA versus myocardial injury, there must be a demonstrated rise and/or fall in the troponin values, in addition to ischemic symptoms, EKG changes, new regional wall motion abnormality, and/or angiographical evidence. PLEASE NOTE: REFERENCE RANGES EDITED 17 Performed By: #### L501.4010 #### [facility] [place], [address] TROPONIN-I Collected: 06/28/2018 Status: F Source: [place] 9:13 PM [facility] REPOSITORY Order Comment: 'TROP' Serial specimen #1, #2 or #3: 1 TYPE CODE TESTS RESULT OUT OF RANGE REFERENCE UNITS LAB L501.4010 <0.045 ng/mL Normal < 0.015 TROPONIN-I Result Comment: TROPONIN-I EXPECTED VALUES <0.045 Negative 0.045 - 0.590 Consistent with Cardiac Damage > OR = 0.600 Critical Value Not every elevated troponin is indicative of PA. These values should be used with clinical judgement in examining the patient's clinical picture for diagnosis. To establish a diagnosis of PA versus myocardial injury, there must be a demonstrated rise and/or fall in the troponin values, in addition to ischemic symptoms, EKG changes, new regional wall motion abnormality, and/or angiographical evidence. PLEASE NOTE: REFERENCE RANGES EDITED 17 Performed By: #### L501.4010 #### [facility] [address] [place], [address] HISTORY AND PHYSICAL Observed: 06/28/2018 Status: F Source: [place] EXAM 8:19 PM [facility] REPOSITORY [facility] Medical Records Department [address] [place] [address] History and Physical 06/28/182006 MR#: [id number] Acct: [id number] Name: KIRIT MCGUIRE Rep #: [id number] : 1950 68 From: Hill Jama MD PCP: Hansa Solorzano APRN Status: ADM JACK Y Location: [place] [address] Problem List (1) Atherosclerotic heart disease of [place] coronary artery without angina pectoris Status: Chronic Comment: 50-60% stenosis in mid LAD; 80% ostial stenosis of Diagonal 1, which is small. Ramus: small w/mild disease. LCX: 90% stenosis in proion in proximal part. Rt external iliac and rt common femoral have mild luminal irregularities.ximal OM1, large vessel with multiple branches. RCA: Ectatic with no significant obstructive stenosis. Abdominal aortogram: see aortic aneurysm.ABHINAV to mid LAD (3.0 X 16 Promus) per Dr. Tolliver @ [facility]. (2) Aortic aneurysm Status: Chronic Comment: Per Abdominal aortogram done during cath 02/02/2012 @ [facility]: ectatic/aneurysmal infrarenal abdominal aorta. Right common iliac has an aneurysmal portion with a possible 40-50% stenosis in proximal portion. Right exertnal iliac and right common femoral arteries have mild luminal irregularities. Left common iliac has an aneurysmal portion in the proximal part. The right external iliac artery and right common femoral artery have mild luminal irregularities. (3) Stented coronary artery Status: Chronic Comment: ABHINAV to OM 1: 3.0 X [address] Loco @ [facility] 02/02/2012; ABHINAV to mid LAD (3.0 X 16 Promus) per Dr. Tolliver @ [facility]. (4) Essential hypertension Status: Chronic (5) Shortness of breath Status: Acute (6) Chest pain Status: Acute History of Present Illness Date of Admission: 06/28/18 Chief Complaint: chest pain The patient is a 68 year old male patient with known coronary artery disease presents to the ER with chest pain. The pain is substernal and associated with shortness of breath. It was reported that the patient was scheduled to have a stent placed in the near future to due coronary vessel with 70% occlusion. He has had more relief of his pain from benzodiazepine than he did from the morphine. He will be admitted for further cardiac workup and consult. His initial troponin is negative. (He has a great deal of anxiety about holding his father as he from cardiac disease) Past Medical History Past Medical History (Chronic Problems): Chronic Problems (Last Updated 06/22/18 @ 09:16 by Emily Knox) 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 Ramus: small w/mild disease. LCX: 90% stenosis in proion in proximal part. Rt external iliac and rt common femoral have mild luminal irregularities.ximal OM1, large vessel with multiple branches. RCA: Ectatic with no significant obstructive stenosis. Abdominal aortogram: see aortic aneurysm.ABHINAV to mid LAD (3.0 X 16 Promus) per Dr. Tolliver @ [facility]. Aortic aneurysm (Chronic 02/02/12) Per Abdominal aortogram done during cath 02/02/2012 @ [facility]: ectatic/aneurysmal infrarenal abdominal aorta. Right common iliac has an aneurysmal portion with a possible 40-50% stenosis in proximal portion. Right exertnal iliac and right common femoral arteries have mild luminal irregularities. Left common iliac has an aneurysmal portion in the proximal part. The right external iliac artery and right common femoral artery have mild luminal irregularities. Stented coronary artery (Chronic 06/21/18) ABHINAV to OM 1: 3.0 X [address] Loco @ [facility] 02/02/2012; ABHINAV to mid LAD (3.0 X 16 Promus) per Dr. Tolliver @ [facility]. Essential hypertension (Chronic) Medical History: Medical History (Last Updated 06/22/18 @ 09:16 by Emily Knox) Abnormal stress echocardiogram (Acute) R94.39 Atherosclerotic heart disease of [place]sh[place] coronary artery without angina pectoris (Chronic) Onset Date: 02/02/12 I25.10 50-60% stenosis in mid LAD; 80% ostial stenosis of Diagonal 1, which is small. Ramus: small w/mild disease. LCX: 90% stenosis in proion in proximal part. Rt external iliac and rt common femoral have mild luminal irregularities.ximal OM1, large vessel with multiple branches. RCA: Ectatic with no significant obstructive stenosis. Abdominal aortogram: see aortic aneurysm.ABHINAV to mid LAD (3.0 X 16 Promus) per Dr. Tolliver @ [facility]. Aortic aneurysm (Chronic) Onset Date: 02/02/12 I71.9 Per Abdominal aortogram done during cath 02/02/2012 @ [facility]: ectatic/aneurysmal infrarenal abdominal aorta. Right common iliac has an aneurysmal portion with a possible 40-50% stenosis in proximal portion. Right exertnal iliac and right common femoral arteries have mild luminal irregularities. Left common iliac has an aneurysmal portion in the proximal part. The right external iliac artery and right common femoral artery have mild luminal irregularities. Essential hypertension (Chronic) I10 Shortness of breath (Acute) R06.02 Anxiety and depression F41.9, F32.9 BPH (benign prostatic hyperplasia) N40.0 Allergies codeine Adverse Reaction (Verified 06/28/18 16:48) High Fever Home Medications: Ambulatory Orders Medication Instructions Recorded Surgical History: Surgical History (Last Updated 06/22/18 @ 09:15 by Emily Knox) Stented coronary artery (Chronic) Onset Date: 06/21/18 Z95.5 ABHINAV to OM 1: 3.0 X [address] Loco @ [facility] 02/02/2012; ABHINAV to mid LAD (3.0 X 16 Promus) per Dr. Tolliver @ [facility]. S/P sinus surgery Onset Date: 05/10/18 Z98.[address] 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 Denies: Palpitations Respiratory: Reports: Shortness of breath at rest. Denies: Cough, Sputum production Gastrointestinal: Denies: Abdominal Pain, Nausea, Vomiting Genitourinary: Denies: Dysuria Musculoskeletal: Denies: Joint Pain, Joint Tenderness Skin: Denies: Rash, Wounds Neurological: Denies: Numbness, Tingling, Focal weakness Psychiatric: Reports: Anxiety. Denies: Depression, Homicidal Ideations, Suicidal Ideations Hematologic/ Lymphatic: Denies: Easy Bruising, Easy Bleeding VTE Information - Inpt Only VTE Present on Admission: No VTE Mechan Device Prophylaxis: None VTE Pharm Prophylaxis ordered?: Yes Patient Problems: Active and Suspected Problems (Last Updated 06/22/18 @ 09:16 by Emily Knox) Chest pain (Acute) - Physical Exam General: Alert, Oriented x3, Cooperative HEENT: Atraumatic, Normocephalic Neck: Supple Lungs: Clear to auscultation, Normal air movement, No rhonchi, No rales Cardiovascular: Regular rate, Regular Rhythm, Normal S1, Normal S2, No murmurs Abdomen: Bowel Sounds Present, Soft, Non Tender Extremities: No edema, Capillary Refill Less than 3 Seconds Skin: No rashes, No breakdown Musculoskeletal: No Tenderness to Palpation of Joints or Extremities Neurological: Neuro grossly intact Psych/Mental Status: Normal Affect, Appropriate, Anxious Vital Signs Temp Pulse Resp BP Pulse Ox 97 F L 60 15 105/62 94 06/28/18 19:45 06/28/18 19:45 06/28/18 19:45 06/28/18 19:45 06/28/18 19:45 Oxygen Flow Rate (L/min) 2 Oxygen Delivery Method Room Air Weight: 265 lb 14.04 oz Body Mass Index (BMI) 38.1 Laboratory Tests Past 24 Hrs WBC 7.7 RBC 4.39 L Hgb 13.2 Hct 40.0 MCV 91.1 MCH 30.1 MCHC 33.0 RDW 13.8 RDW Differential 45.7 H Assessment/Plan All Active Problems (Last Updated 06/22/18 @ 09:16 by Emily Knox) Chest pain (Acute) Abnormal stress echocardiogram (Acute) Shortness of breath (Acute) Chronic Problems (Last Updated 06/22/18 @ 09:16 by Emily Knox) 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 Ramus: small w/mild disease. LCX: 90% stenosis in proion in proximal part. Rt external iliac and rt common femoral have mild luminal irregularities.ximal OM1, large vessel with multiple branches. RCA: Ectatic with no significant obstructive stenosis. Abdominal aortogram: see aortic aneurysm.ABHINAV to mid LAD (3.0 X 16 Promus) per Dr. Tolliver @ [facility]. Aortic aneurysm (Chronic 02/02/12) Per Abdominal aortogram done during cath 02/02/2012 @ [facility]: ectatic/aneurysmal infrarenal abdominal aorta. Right common iliac has an aneurysmal portion with a possible 40-50% stenosis in proximal portion. Right exertnal iliac and right common femoral arteries have mild luminal irregularities. Left common iliac has an aneurysmal portion in the proximal part. The right external iliac artery and right common femoral artery have mild luminal irregularities. Stented coronary artery (Chronic 06/21/18) ABHINAV to OM 1: 3.0 X [address] Loco @ [facility] 02/02/2012; ABHINAV to mid LAD (3.0 X 16 Promus) per Dr. Tolliver @ [facility]. Essential hypertension (Chronic) Plan - admit to PCU - consult Dr Tolliver - NPO at midnight - cycle cardiac markers - morphine, oxygen, nitro per routine protocol - LMWH for DVT prophylaxis - continue routine PO medicine while taking PO Code Visit OBSV E AND M: [id number] Initial observation care L2 06/28/182018 <Electronically signed by Hill Jama MD> Date Hill Jama MD Cosigner Signature: Date (if applicable) CC: WAGNER Solorzano; DEAN OF EDUCATIONLeonC Hansa Solorzano; Hill Jama MD Signed CHEST 1 VIEW Observed: 06/28/2018 Status: F Source: [place] (PORTABLE) 5:21 PM [facility] REPOSITORY [facility] Imaging Services [address] [place] [address] Chest 1 View (Portable) MR#: [id number] Acct: [id number] Name: KIRIT MCGUIRE Rep #: [id number] : 1950 M 68 From: Gladys Pizano MD PCP: Hansa Solorzano APRN Status: REG ER Study: Chest 1 View (Portable) Date of Exam: 06/28/18 Exam# [id number] Ordering Dr: Ananya Millard MD STUDY: X-RAY CHEST REASON FOR EXAM: Male, 68 years old. Shortness of breath. TECHNIQUE: Single frontal view of the chest. COMPARISON: May 06, 2018 FINDINGS: There is a vague opacity within the right upper/mid lateral lung. Normal size heart. Normal mediastinum and jeffrey. Normal visualized pulmonary arteries. The descending thoracic aorta is tortuous. Normal visualized thoracic spine. Normal visualized ribs, clavicles, and shoulders. There is no demonstrated abnormality of the visualized soft tissue structures of the upper abdomen. RAD/Chest 1 View (Portable) IMPRESSION: Indeterminate opacity within the right lateral lung, this may be secondary to a confluence of shadows, consider PA and lateral images or chest CT for further characterization. Electronically Signed: Gladys Pizano MD at 18:10 EST Tel , Service support , CC: WAGNER Solorzano; Ananya Millard MD Entry Level Drafter: Signed CBC W/DIFF, AUTOMATED Collected: 06/28/2018 Status: F Source: [place] 4:55 PM [facility] REPOSITORY TYPE CODE TESTS RESULT OUT OF RANGE REFERENCE UNITS LAB L100.1000 4.4-11.0 K/mm3 Normal WBC 7.7 LAB L100.1200 4.6-6.2 M/mm3 Low RBC 4.39 LAB L100.1300 13.0-16.5 g/dl Normal HGB 13.2 LAB L100.1400 40-54 % Normal HCT 40.0 LAB L100.1500 80-94 fL Normal MCV 91.1 LAB L100.1600 27.0-32.0 pg Normal MCH 30.1 LAB L100.1700 32-36 g/gl Normal MCHC 33.0 LAB L100.1810 11.6-14.6 % Normal RDW CV 13.8 LAB L100.1820 35.1-43.9 fl High RDW SD 45.7 LAB L100.1900 150-450 K/mm3 Normal PLT 231 LAB L100.2000 6.2-12.0 fl Normal MPV 10.1 LAB L100.2100 47-70 % Normal NEUT% 62.9 LAB L100.2200 19-41 % Normal LY% 27.0 LAB L100.2300 0-10 % Normal MONO% 6.0 LAB L100.2400 0-5 % Normal EO% 3.3 LAB L100.2500 0-1 % Normal BASO% 0.4 LAB L100.2550 0.0-0.9 % Normal IM GRAN % 0.400 Result Comment: IG% - Immature Granulocytes (promyelocytes, myelocytes and metamyelocytes) > 1% indicates that a LEFT SHIFT is Present. LAB L100.2620 2.0-7.7 X10 3/uL Normal Absolute Neut 4.8 LAB L100.2720 0.83-4.51 X10 3/ul Normal Absolute Lymph 2.07 Performed By: #### L100.0100 #### [facility] [address] [place], [place], [id number] BASIC METABOLIC Collected: 06/28/2018 Status: F Source: [place] PROFILE ([facility]) 4:55 PM [facility] REPOSITORY TYPE CODE TESTS RESULT OUT OF RANGE REFERENCE UNITS LAB L501.0100 74-106 mg/dL Normal GLU 103 Result Comment: Fasting Glucose result from 100 to 125 mg/dL suggests IMPAIRED HOMEOSTASIS per A.D.A. criteria. Please note revised GLUCOSE reference range effective 2017. LAB L501.1000 7-18 mg/dL High BUN 22 LAB L501.1100 0.70-1.30 mg/dL Normal CREAT,SERUM 0.83 Result Comment: The validity of the calculated GFR AND GFRAA in patients over 70 years has not been determined. Clinical correlation is essential. LAB L501.1110 >60 mL/min Normal EST GFR 98 Result Comment: Non- GFR Calc LAB L501.1115 >60 mL/min Normal EST GFR - AA 119 Result Comment: GFR Calc LAB L501.1255 ml/min Normal Estimated CRCL 89.17 LAB L501.1300 10-20 RATIO High BUN/CRE 26.5 LAB L501.2200 8.5-10 mg/dL Low .1 CA 8.4 LAB L501.5300 136-14 mmol/L Normal 5 NA 137 LAB L501.5600 3.5-5. mmol/L Normal 1 K 3.8 LAB L501.5900 98-107 mmol/L Normal CL 104 LAB L501.6100 21.0-3 mmol/L Normal 2.0 CO2 27.0 LAB L501.6200 5-15 Normal GAP 6 Performed By: #### L500.2500, L501.4010 #### [facility] [address] [place], [address] TROPONIN-I Collected: 06/28/2018 Status: F Source: [place] 4:55 PM [facility] REPOSITORY TYPE CODE TESTS RESULT OUT OF RANGE REFERENCE UNITS LAB L501.4010 <0.045 ng/mL Normal < 0.015 TROPONIN-I Result Comment: TROPONIN-I EXPECTED VALUES <0.045 Negative 0.045 - 0.590 Consistent with Cardiac Damage > OR = 0.600 Critical Value Not every elevated troponin is indicative of PA. These values should be used with clinical judgement in examining the patient's clinical picture for diagnosis. To establish a diagnosis of PA versus myocardial injury, there must be a demonstrated rise and/or fall in the troponin values, in addition to ischemic symptoms, EKG changes, new regional wall motion abnormality, and/or angiographical evidence. PLEASE NOTE: REFERENCE RANGES EDITED 17 Performed By: #### L500.2500, L501.4010 #### [facility] [address] [facility] [place], [address] DISCHARGE INSTRUCTION Observed: 06/22/2018 Status: F Source: [place] 6:01 PM [facility] REPOSITORY [facility] Medical Records Department [address] [facility] [place] [address] Instructions for Home/Discharge Instructions 06/22/18 1112 MR#: [id number] Acct: [id number] Name: KIRIT MCGUIRE Rep #: [id number] : 1950 68 From: Suiz FERNANDES PCP: Hansa Solorzano APRN Status: DIS JACK Discharge Diet: Low fat/ Low Cholesterol May shower in (days): 1 May resume sexual activity in: 1 week - if no groin problems occur. Lifting Restrictions: 10 pounds and also avoid any pushing or pulling for 3 days after your test. Additional Activity Instructions:: You must have someone drive you home. Do not drive until instructed by your doctor. You must have someone stay with you all night after your test. Rest in bed or on the couch until the next morning. Limit the number of times you go up and down stairs the day of your test. Call your doctor if your incision/area has: Continuous Slow Oozing, Sudden Increased Bleeding, Increased Pain/ Swelling, Increased Redness, Foul Smelling Discharge, Swelling at the incision site Call your doctor if you observe: Fever of 101 or Higher, Shortness of breath, Chest pain Remove Dressing in (days):: 1 Additional Dressing/Incision Instructions:: Keep the dressing (bandage) on until the next morning. You may then shower, but do not take a tub bath for 5 days after your test. It is normal to have some tenderness and discomfort at the puncture site. Sometimes bruising also occurs. However, if pain, numbness, or coldness occurs below the puncture site (in your leg, toes, arms or fingers) call your doctor at once. You may have a small, marble sized knot at the puncture site. This is normal. Do not rub it. It will go away in 4-6 weeks. Bleeding can occur from the area where the puncture was done. Blood may spurt or drip from the site. If blood spurts, apply pressure right away to stop bleeding and call 911. Although rare, bleeding into the tissue (hematoma) can also occur. If this happens, a large, firm area goose egg under the skin will appear. If any of these occur, lie down as flat as you can and have someone apply firm pressure to the cath site with a gauze pad or a clean washcloth for 10-15 minutes. Call 911 or go to the Emergency Department. Additional Instructions: You were started on Imdur, this is a long acting nitro, continue this medication. If you can not tolerate it call our office. You will need to stay on you Plavix for at least one year. you have a follow up appt with us on 07/06- keep this appt. At that time we will discuss your next heart cath where Dr. Tolliver would like to do an additional stent. This is scheduled for 07/14. After this procedure we will refer you to cardiac rehab. Allergies/Adverse Reactions: Allergies codeine Adverse Reaction (Verified 06/18/18 07:21) High Fever Medications to take at Discharge aspirin 81 mg tablet,delayed release 81 mg PO DAILY 05/31/18 atenolol 50 mg-chlorthalidone 25 mg tablet 0.5 tab PO DAILY tab 05/31/18 diazepam 2 mg tablet 2 mg PO QHS tab 05/31/18 diazepam 5 mg tablet 5 mg PO BID PRN tab 05/31/18 fluticasone 50 mcg/actuation nasal spray,suspension 1 spray INTRANASAL DAILY 05/31/18 fluticasone furoate 200 mcg/actuation blister powder for inhalation 1 inh INHALATION DAILY 05/31/18 meclizine 12.5 mg tablet 12.5 mg PO TID PRN 05/31/18 sertraline 100 mg tablet 100 mg PO DAILY 05/31/18 tamsulosin 0.4 mg capsule 0.4 mg PO DAILY 05/31/18 vitamin B complex tablet 1 tab PO DAILY 05/31/18 clopidogrel 75 mg tablet 75 mg PO DAILY #30 tab 06/15/18 Isosorbide Mononitrate [Imdur] 60 mg PO DAILY #30 tablet 06/22/18 The following prescriptions were given: Isosorbide Mononitrate [Imdur] 60 mg PO DAILY #30 tablet Orders to be completed after discharge: Phase II, Outpatient Cardiac Rehab Location: None Selected Primary Care Physician: Hansa Solorzano, RN [Primary Care Provider] - Test Results: Test results from this visit will be discussed in further detail at your follow-up appointment, if applicable. Please Follow Up With: Ramo Tolliver MD When: 07/06 at 1:30 Cardiac Rehabilitation Info Cardiac Rehabilitation Program Information: Cardiac Rehabilitation is important for patients like you who are recovering from a heart problem. Cardiac rehabilitation programs are recognized as integral to the continued care of the patient with coronary heart disease. The cardiac rehabilitation program is designed to optimize a patient's physical, psychological, and social functioning. Health eye care professional work in cardiac rehabilitation programs and assist you with getting the treatments you need to get stronger and healthier - like exercise, healthy eating habits, and medications. Cardiac rehabilitation has been show to help people with heart problems live longer and have better life enjoyment than people who do not go to cardiac rehabilitation. Please contact the Cardiac Rehabilitation Program at [facility] at in two weeks if you have not heard from them. 06/22/18 1801 <Electronically signed by Suzi FERNANDES> Date Suzi FERNANDES CC: WAGNER Solorzano; DEAN OF EDUCATION-C Hansa Solorzano BASIC METABOLIC Collected: 06/22/2018 Status: F Source: [place]FILE ([facility]) 4:35 AM [facility] REPOSITORY TYPE CODE TESTS RESULT OUT OF RANGE REFERENCE UNITS LAB L501.0100 74-106 mg/dL Normal GLU 101 Result Comment: Fasting Glucose result from 100 to 125 mg/dL suggests IMPAIRED HOMEOSTASIS per A.D.A. criteria. Please note revised GLUCOSE reference range effective 2017. LAB L501.1000 7-18 mg/dL Normal BUN 18 LAB L501.1100 0.70-1.30 mg/dL Normal CREAT,SERUM 0.79 Result Comment: The validity of the calculated GFR AND GFRAA in patients over 70 years has not been determined. Clinical correlation is essential. LAB L501.1110 >60 mL/min Normal EST GFR 103 Result Comment: Non- GFR Calc LAB L501.1115 >60 mL/min Normal EST GFR - AA 125 Result Comment: GFR Calc LAB L501.1255 ml/min Normal Estimated CRCL 74.01 LAB L501.1300 10-20 RATIO High BUN/CRE 22.7 LAB L501.2200 8.5-10 mg/dL Low .1 CA 8.1 LAB L501.5300 136-14 mmol/L Normal 5 NA 143 LAB L501.5600 3.5-5. mmol/L Normal 1 K 4.0 LAB L501.5900 98-107 mmol/L High CL 109 LAB L501.6100 21.0-3 mmol/L Normal 2.0 CO2 24.0 LAB L501.6200 5-15 Normal GAP 10 Performed By: #### L500.2500, L500.4100 #### [facility] [address] [place], [address] LIPID PROFILE Collected: 06/22/2018 Status: F Source: [place] 4:35 AM [facility] REPOSITORY TYPE CODE TESTS RESULT OUT OF RANGE REFERENCE UNITS LAB L501.4900 200 mg/dL Normal CHOL 180 Result Comment: <200 mg/dL Desirable 200-240 mg/dL Borderline >240 mg/dL High Risk LAB L501.5000 mg/dL Normal TRIG 109 Result Comment: The drugs N-Acetylcysteine and Metamizole may falsely depress this assay. Serum Triglycerides Reference Interval Normal <150 mg/dL Borderline high 150 - 199 mg/dL High 200 - 499 mg/dL Very High > or = 500 mg/dL LAB L501.6400 mg/dL Low HDL 37 Result Comment: The drugs N-Acetylcysteine and Metamizole may falsely depress this assay. Reference Range HDL <40 mg/dL Low HDL Cholesterol HDL >or= 60 mg/dL High HDL Cholesterol LAB L501.6500 0-130 mg/dL Normal LDL 121 LAB L501.6600 5-40 mg/dL Normal VLDL 22 Performed By: #### L500.2500, L500.4100 #### [facility] [address] [place], [address] CBC-COMPLETE BLOOD CNT Collected: 06/22/2018 Status: F Source: [place] NO DIFF 4:35 AM [facility] REPOSITORY TYPE CODE TESTS RESULT OUT OF RANGE REFERENCE UNITS LAB L100.1000 4.4-11.0 K/mm3 Normal WBC 7.7 LAB L100.1200 4.6-6.2 M/mm3 Normal RBC 4.61 LAB L100.1300 13.0-16.5 g/dl Normal HGB 14.1 LAB L100.1400 40-54 % Normal HCT 42.6 LAB L100.1500 80-94 fL Normal MCV 92.4 LAB L100.1600 27.0-32.0 pg Normal MCH 30.6 LAB L100.1700 32-36 g/gl Normal MCHC 33.1 LAB L100.1810 11.6-14.6 % Normal RDW CV 14.0 LAB L100.1820 35.1-43.9 fl High RDW SD 46.7 LAB L100.1900 150-450 K/mm3 Normal PLT 209 LAB L100.2000 6.2-12.0 fl Normal MPV 10.6 Performed By: #### L100.0500 #### [facility] [address] [place], [address] ACT ACTIVATED CLOTTING Collected: 06/21/2018 Status: F Source: [place] TIME 11:01 AM [facility] REPOSITORY TYPE CODE TESTS RESULT OUT OF RANGE REFERENCE UNITS LAB L9100.0100 74-137 sec High ACTk CLOT 147 TIME Performed By: #### L9100.0100 #### [facility] Point of Care [address] [place], [place] [address] STRESS TEST ECHO W/ Observed: 06/16/2018 Status: F Source: [place] CONTRAST 3:43 PM [facility] REPOSITORY [facility] Cardiovascular Services [address] [place] [address] Stress Test Echo W/Contrast MR#: [id number] Acct: [id number] Name: KIRIT MCGUIRE Rep #: [id number] : 1950 68 From: Ramo Tolliver MD Primary Care: Hansa Solorzano, WAGNER Status: REG CLI Ordering Dr: Ramo Tolliver MD Sex: M C Reason For Study: SOB, PATTEN Stress Results Protocol: Prasad Protocol Maximum Predicted HR: 153 bpm Target HR: 130 bpm % Maximum Predicted HR: 80 % DurationHeart Rate Stage (mm:ss) (bpm) BP Comment Baseline 66 122/88Diluted Definity 3 ML Given; No Chest Pain Prasad Protocol Stage I 3:00 92 156/82No Chest Pain; Moderate Dyspnea Prasad Protocol Stage II 3:00 123 174/80No Chest Pain; Severe Dyspnea; Mild Arm Pain Recovery 85 120/84No Chest Pain; No Dyspnea Stress Duration: 6:00 mm:ss Maximum Stress HR: 123 bpm METS: 7 Baseline Echocardiogram Findings The estimated ejection fraction is 60 %. Stress Echo Wall motion Data Resting WM Intermediate WM Stress WM Resting Wall Motion Wall Motion Stress No regional wall motion No regional wall motion abnormalities noted. abnormalities noted. EKG Data Normal intervals are noted. The patient exercised according to the regular Prasad protocol for a total duration of 6:00. The maximum heart rate attained was 141 beats per minute. This was 92% of maximum predicted heart rate. The patient exercised into stage 3 of the Prasad protocol. At peak exercise, upsloping ST changes only were noted, which did not meet the criteria for ischemia. No clinical angina was noted. Interpretation Summary The study was technically difficult. Contrast injection was performed. The estimated ejection fraction is 60 %. Normal, adequate, treadmill echocardiogram. Negative for ischemia by EKG and echocardiographic criteria. No anginal symptoms noted. Rare PVC noted. Appropriate blood pressure response to exercise. Average exercise capacity for age. Test terminated due to dyspnea. Final LVEF is 75%. Decreased sensitivity due to poor echo windows requiring Definity agent. Patient had subtle upsloping ST segment depression but did not reach criteria over and above his baseline ST segments. No associated wall motion abnormalities noted. No complications. Ordering Physician: Ramo Tolliver Referring Physician: Ramo Tolliver Performed By: Maureen Bear RDCS 06/16/181542 Date Ramo Tolliver MD CC: WAGNER Solorzano; DEAN OF EDUCATION-C Hansa Solorzano; Ramo Tolliver MD Date Dictated: 06/15/1844 Date Transcribed: 06/16/181542 Entry Level Drafter: Signed CBC-COMPLETE BLOOD CNT Collected: 06/15/2018 Status: F Source: [place] NO DIFF 10:53 AM [facility] REPOSITORY TYPE CODE TESTS RESULT OUT OF RANGE REFERENCE UNITS LAB L100.1000 4.4-11.0 K/mm3 Normal WBC 7.7 LAB L100.1200 4.6-6.2 M/mm3 Normal RBC 4.86 LAB L100.1300 13.0-16.5 g/dl Normal HGB 14.6 LAB L100.1400 40-54 % Normal HCT 44.8 LAB L100.1500 80-94 fL Normal MCV 92.2 LAB L100.1600 27.0-32.0 pg Normal MCH 30.0 LAB L100.1700 32-36 g/gl Normal MCHC 32.6 LAB L100.1810 11.6-14.6 % Normal RDW CV 13.5 LAB L100.1820 35.1-43.9 fl High RDW SD 45.7 LAB L100.1900 150-450 K/mm3 Normal PLT 247 LAB L100.2000 6.2-12.0 fl Normal MPV 10.9 Performed By: #### L100.0500 #### [facility] [address] [place], [address] PROTHROMBIN TIME W/INR Collected: 06/15/2018 Status: F Source: [place] 10:53 AM [facility] REPOSITORY TYPE CODE TESTS RESULT OUT OF RANGE REFERENCE UNITS LAB L300.4150 11.7-14.9 SECONDS Normal PROTIME 13.4 LAB L300.4200 Normal INR 1.0 Performed By: #### L300.3900, L300.4310 #### [facility] [address] [place], [place], [address] PARTIAL THROMBOPLAST Collected: 06/15/2018 Status: F Source: [place] TIME 10:53 AM [facility] REPOSITORY TYPE CODE TESTS RESULT OUT OF RANGE REFERENCE UNITS LAB L300.4310 24.1-36.2 Seconds Normal PTT 26.1 Performed By: #### L300.3900, L300.4310 #### [facility] [address] [place], [address] BASIC METABOLIC Collected: 06/15/2018 Status: F Source: [place] PROFILE (BMP) 10:53 AM [facility] REPOSITORY TYPE CODE TESTS RESULT OUT OF RANGE REFERENCE UNITS LAB L501.0100 74-106 mg/dL Normal GLU 105 Result Comment: Fasting Glucose result from 100 to 125 mg/dL suggests IMPAIRED HOMEOSTASIS per A.D.A. criteria. Please note revised GLUCOSE reference range effective 2017. LAB L501.1000 7-18 mg/dL Normal BUN 13 LAB L501.1100 0.70-1.30 mg/dL Normal CREAT,SERUM 0.83 Result Comment: The validity of the calculated GFR AND GFRAA in patients over 70 years has not been determined. Clinical correlation is essential. LAB L501.1110 >60 mL/min Normal EST GFR 99 Result Comment: Non- GFR Calc LAB L501.1115 >60 mL/min Normal EST GFR - AA 119 Result Comment: GFR Calc LAB L501.1300 10-20 RATIO Normal BUN/CRE 15.7 LAB L501.2200 8.5-10.1 mg/dL CA Normal 8.8 LAB L501.5300 136-145 mmol/L NA Normal 140 LAB L501.5600 3.5-5.1 mmol/L K Normal 3.6 LAB L501.5900 98-107 mmol/L CL Normal 104 LAB L501.6100 21.0-32.0 mmol/L Normal CO2 26.0 LAB L501.6200 5-15 Normal GAP 10 Performed By: #### L500.2500 #### [facility] [address] [place], [address] ECHOCARDIOGRAM COMPLETE Observed: 06/09/2018 Status: F Source: [place] 11:03 AM [facility] REPOSITORY [facility] Cardiovascular Services [address] [place] [address] Echo Complete 06/09/18 0849 MR#: [id number] Acct: [id number] Name: KIRIT MCGUIRE Rep #: [id number] : 1950 68 From: Ramo Tolliver MD Attending Dr: Ramo Tolliver MD Status: REG CLI Ordering Dr: Ramo Tolliver MD Date: 06/09/18 Location: [facility] Sex: M C Admitted: Reason For Study: CAD/ASHD Procedure This was a 2D Doppler, Color Flow transthoracic echocardiogram. Exam performed in department. Left Ventricle Normal size and thickness. The estimated ejection fraction is 65 %. Stage 1 diastolic dysfunction. No regional wall motion abnormalities noted. Right Ventricle Normal size and thickness. Normal systolic function. Atria Normal left atrium. Normal right atrium. Normal atrial septum. Mitral Valve The mitral valve is structurally normal. No prolapse or stenosis seen. Trivial mitral valve insufficiency. Tricuspid Valve Normal tricuspid valve. Trivial tricuspid valve insufficiency. Right ventricular systolic pressure estimated to be 26 mmHg. Aortic Valve Trisinus/trileaflet aortic valve. Aortic sclerosis, no stenosis. Pulmonic Valve Normal pulmonic valve. Trivial pulmonic valve insufficiency. Great Vessels Normal aortic root. Normal arch. Normal inferior vena cava. Inferior vena cava collapse with sniff. Pericardium/Pleural No pericardial effusion. MMode/2D Measurements AND Calculations LVIDd: 6.0 cm IVSd: 1.2 cm Ao root diam: 4.0 cm LVIDs: 4.0 cm LVPWd: 1.1 cm RVDd: 4.6 cm FS: 33.8 % LAV(MOD-bp): 61.7 ml LVAd ap4: 27.5 cm2 SV(MOD-sp4): 52.2 ml LAV(MOD-bp) Indexed: 26.1 ml/m2 EDV(MOD-sp4): 80.8 ml LAV(MOD-sp2): 78.0 ml EDV(sp4-el): 79.7 ml LAV(MOD-sp4): 47.7 ml LVAs ap4: 14.4 cm2 ESV(MOD-sp4): 28.6 ml ESV(sp4-el): 27.0 ml EF(MOD-sp4): 64.6 % EF(sp4-el): 66.1 % SV(sp4-el): 52.7 ml LA A4 area: 18.6 cm2 LA dimension(2D): 4.6 cm RA A4 area: 18.5 cm2 Doppler Measurements AND Calculations MV E max mango: 65.0 cm/sec Lat Peak E' Mango: 6.9 cm/sec Med Peak E' Mango: 5.0 cm/sec MV A max mango: 94.7 cm/sec E/E' lat: 9.4 E/E' med: 13.1 MV E/A: 0.69 Ao V2 max: 163.8 cm/sec LV V1 max: 128.5 cm/sec PA V2 max: 96.1 cm/sec Ao max P.7 mmHg LV V1 max P.6 mmHg Ao V2 mean: 113.5 cm/sec Ao mean P.7 mmHg Ao V2 VTI: 38.5 cm TR max mango: 231.5 cm/sec TR max P.4 mmHg Interpretation Summary The estimated ejection fraction is 65 %. Stage 1 diastolic dysfunction. Trivial mitral valve insufficiency. Trivial tricuspid valve insufficiency. Right ventricular systolic pressure estimated to be 26 mmHg. There is no comparison study available. Ordering Physician: Ramo Tolliver Referring Physician: Hansa Solorzano Performed By: Yeny Gutierrez, TANYA, RVT 06/09/18 1102 Date Ramo Tolliver MD CC: WAGNER Solorzano; JUAN M Solorzano; Ramo Tolliver MD Date Dictated: 06/09/18 0849 Date Transcribed: 06/09/181101 Entry Level Drafter: Signed LIVER PROFILE Collected: 06/09/2018 Status: F Source: [place] 8:16 AM [facility] REPOSITORY TYPE CODE TESTS RESULT OUT OF RANGE REFERENCE UNITS LAB L501.1500 6.4-8.2 g/dL Normal T PROT 6.9 LAB L501.1800 3.2-5.0 g/dL Normal ALB 3.6 LAB L501.1950 2.2-4.2 g/dL Normal GLOB 3.3 LAB L501.4100 15-37 U/L Normal AST 22 LAB L501.4305 45-117 U/L Normal ALK P 81 LAB L501.4405 16-61 U/L Normal ALT 37 LAB L501.4600 0.20-1.00 mg/dL Normal T BILI 0.70 LAB L501.4700 0.00-0.30 mg/dL Normal D BILI 0.20 Performed By: #### L500.3400, L500.4100 #### [facility] [address] [facility] [place], [place], [id number] LIPID PROFILE Collected: 06/09/2018 Status: F Source: [place] 8:16 AM [facility] REPOSITORY TYPE CODE TESTS RESULT OUT OF RANGE REFERENCE UNITS LAB L501.4900 200 mg/dL High CHOL 202 Result Comment: <200 mg/dL Desirable 200-240 mg/dL Borderline >240 mg/dL High Risk LAB L501.5000 mg/dL Normal TRIG 91 Result Comment: The drugs N-Acetylcysteine and Metamizole may falsely depress this assay. Serum Triglycerides Reference Interval Normal <150 mg/dL Borderline high 150 - 199 mg/dL High 200 - 499 mg/dL Very High > or = 500 mg/dL LAB L501.6400 mg/dL Normal HDL 44 Result Comment: The drugs N-Acetylcysteine and Metamizole may falsely depress this assay. Reference Range HDL <40 mg/dL Low HDL Cholesterol HDL >or= 60 mg/dL High HDL Cholesterol LAB L501.6500 0-130 mg/dL High LDL 140 LAB L501.6600 5-40 mg/dL Normal VLDL 18 Performed By: #### L500.3400, L500.4100 #### [facility] [address] [place], [place], [id number] CARDIOLOGY VISIT Observed: 06/01/2018 Status: F Source: [place] REPORT 11:48 AM [facility] [address] [place] [address] OFFICE VISIT Date of Service: 06/01/18 MR#: [id number] Acct: [id number] Name: KIRIT MCGUIRE Rep #: [id number] : 1950 Provider: Ramo Tolliver MD Age/Sex: 68/M [place] [facility] [place] Status: Signed HPI HPI Chief Complaint: dyspnea on exertion Details: KIRIT MCGUIRE, is a 68 M former smoker who quit around 6 years ago after a [id number]-[id number] smoking history, sees Dr. Roach for pulmonary, who presents to the office today for shortness of breath and dyspnea on exertion which apparently has been going on for several months. Patient has a known history of coronary artery disease status post catheterization and angioplasty in 02/02/12 at [facility]. At that time he was found to have mild luminal irregularities of his proximal LAD, a 50-60% stenosis in his mid LAD and 80% ostial stenosis of diagonal #1 which was a small vessel. His ramus intermedius was small with mild disease, and a 90% stenosis of the proximal part of the obtuse marginal was noted. His RCA had nonobstructive coronary disease. He underwent successful angioplasty and drug-eluting stenting of the obtuse marginal #1 receiving a 3.0 816 Promus element stent. 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 At that time he had left-sided chest pain and shortness of breath. Patient recently visited the emergency room on 05/06/18 with a chief complaint of dyspnea on exertion. Pulmonary workup including an EKG which was negative as well as a chest x-ray which was negative. He was referred to us for his symptoms. In addition the patient apparently has possibly obstructive sleep apnea, but has not been fully evaluated as the patient developed anxiety during his last sleep study. Patient apparently underwent pulmonary function test in Dr. Roach's office several months ago and reportedly had no evidence of emphysema. Patient is tried MDIs to correct his dyspnea which have not improved things. His story started about 3 months ago when he began developing significant shortness of breath. His initial episode occurred after he was eating breakfast at a kitchen table, try to get up and was profoundly weak, had trouble breathing, could not take a deep breath in. Patient went to the floor for several minutes, until his breathing improved. He described as if someone had knocked the wind out of him. He has never had a diaphragmatic stimulation test and has no history in his family of muscular skeletal or neurological diseases. Since that time patient has had progressively worsening dyspnea on exertion and shortness of breath which he describes as inability to take a deep breath in despite his brain commanding his diaphragm to inhale. He is taking and tolerating his medicines well he denies any exertional chest pain symptoms. In our office his blood pressure is 140/70, pulse 60 and regular. His physical exam demonstrates clear lungs bilaterally, regular rate and rhythm, normal S1/S2, no S3-S4. He has no edema. His chest x-ray demonstrates that he has some diaphragmatic flattening, but no overt infiltrates. His PFTs are not included in his packet today. EKG dated 05/05/18 shows normal sinus rhythm/sinus bradycardia, normal axis, normal intervals. Intake Vital Signs06/01/18 Height 5 ft 10 in 06/01/18 Weight: 264 lb 06/01/18 Body Mass Index (BMI) 37.8 06/01/18 Blood Pressure 140/70 H H 06/01/18 Blood Pressure Location Lt brachial 06/01/18 Blood Pressure Position Sitting Intake Visit Reasons: SOB, HTN (SELF) Edger Operator Required: No Accompanied by: Is patient in pain?: No Allergies codeine Adverse Reaction (Verified 05/31/18 19:44) High Fever Medications aspirin 81 mg tablet,delayed release 81 mg PO DAILY 05/31/18 [History Confirmed 05/31/18] atenolol 50 mg-chlorthalidone 25 mg tablet 0.5 tab PO DAILY tab 05/31/18 [History Confirmed 05/31/18] diazepam 2 mg tablet 2 mg PO QHS tab 05/31/18 [History Confirmed 05/31/18] diazepam 5 mg tablet 5 mg PO BID PRN tab 05/31/18 [History Confirmed 05/31/18] fluticasone 50 mcg/actuation nasal spray,suspension 1 spray INTRANASAL DAILY 05/31/18 [History Confirmed 05/31/18] fluticasone furoate 200 mcg/actuation blister powder for inhalation 1 inh INHALATION DAILY 05/31/18 [History Confirmed 05/31/18] levofloxacin 500 mg tablet 500 mg PO .COMPLEX 05/31/18 [History Confirmed 05/31/18] meclizine 12.5 mg tablet 12.5 mg PO TID PRN 05/31/18 [History Confirmed 05/31/18] sertraline 100 mg tablet 100 mg PO DAILY 05/31/18 [History Confirmed 05/31/18] tamsulosin 0.4 mg capsule 0.4 mg PO DAILY 05/31/18 [History Confirmed 05/31/18] vitamin B complex tablet 1 tab PO DAILY 05/31/18 [History Confirmed 05/31/18] [facility] Medical History 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/02/12) Aortic aneurysm (Chronic 02/02/12) Essential hypertension (Chronic) Shortness of breath (Acute) Anxiety and depression (Chronic) BPH (benign prostatic hyperplasia) (Chronic) Surgical History Stented coronary artery (Chronic 02/02/12) S/P sinus surgery (Acute 05/10/18) History of back surgery (Chronic) History of cholecystectomy (Chronic) History of hernia repair (Chronic) History of total left knee replacement (Chronic) Family History Mother Cancer Social History Smoking Status: Former smoker ROS Const Const: Positive for other (Has had increased exertional dyspnea last 2 months AND also wakes up gasping); negative for fatigue, weakness, body ache, fever(s), headache(s), chills, frequent falls, night sweats, daytime sleepiness, difficulty sleeping, excessive sweating, weight gain, weight loss, increased appetite, poor appetite or anorexia Eyes Eyes: Negative for blind spots, loss of peripheral vision, transient loss of vision, blurry vision, change in vision, double vision, floaters, tunnel vision or other ENT ENT: Negative for headache(s), dizziness, hearing loss, tinnitus, Nosebleed/epistaxis, balance problems, post nasal drip, lip swelling, tongue swelling, bleeding gums, hoarseness, neck pain, dry mouth or other Cardio Chest Pain: No (has bibasilar lung pain when breathing in, but CXR 05/06 normal) Palpitations: No Edema: Bilateral (Pitting, left greater than right: Left knee replaced.) Muscle aches with walking: None Resp Respiratory: Positive for SOB with activity and other (Wakes up gasping sometimes at night: has not had sleep study); negative for SOB at rest, SOB orthopnea\SOB lying down, Cough, Coughing up blood/hemoptysis, chest congestion, pain on inspiration, snoring, stridor, wheezing, crackles or paroxysmal nocturnal dyspnea GI GI: Negative nausea, vomiting, heartburn, constipation, belching, bloating, cramping, vomiting blood/hematemesis, bright, red blood in stools, black,tarry stools, loose stools, Difficulty Swallowing or other : Negative for hematuria, frequent nighttime urination/ nocturia, erectile dysfunction or abnormal vaginal bleeding Musc Musc: Negative for balance problems, muscle aches/ myalgia, muscle weakness or joint pain Skin Skin: Negative redness, non-healing lesions, rash, unusual bruising, skin ulcer, wounds, jaundice or other Neuro Neuro: Negative for weakness, headache(s), frequent falls, blurry vision, double vision, dizziness, lightheadedness, near syncope, syncope, orthostatic symptoms, confusion, memory loss, restless legs, vertigo, seizures, lack of coordination or other Fritz Hematologic/Lymphatic: Negative for easy bleeding, easy bruising, enlarged lymph nodes or other Endo Endo: Negative for fatigue, excessive sweating, cold intolerance, heat intolerance, flushing, increased thirst/drinking, increased hunger, hair loss, hair growth or other Psych Psych: Negative for anxiety, depression, thoughts of harming anyone, thoughts of harming yourself, visual hallucinations, panic attacks or audible hallucinations Allergy Allergy/Immunology: Negative for lip swelling, Negative for tongue swelling, Negative for rash, Negative for throat swelling, Negative for hives Cardiology Exam Const Appearance: cooperative, healthy appearing and no acute distress Nutritional Appearance: well nourished Orientation: alert, oriented x3 and oriented to person Head Head: normal to inspection, atraumatic and normocephalic Nose: external nose normal Face and Sinus: face symmetric Mouth: oral mucosae normal Eyes General: appearance normal, both eyes and all related structures Eyelids: eyelids normal Conjunctivae: conjunctivae normal Pupils: PERRL and normal by confrontation EOM: EOM intact bilaterally Neck Neck: normal visual inspection and full ROM Carotids: normal carotid upstroke Chest Chest inspection: normal inspection of the chest Auscultation: Bilateral: Clear to Auscultation Cardio Palpation: normal PMI Rate: regular rate Rhythm: regular rhythm Heart sounds: S1 normal and S2 normal GI GI: normal to inspection, no hepatosplenomegaly and bowel sounds present Neuro General: alert, oriented x3, awake, CN's II-XI intact bilaterally and moves all extremities Skin Skin: no rashes or lesions noted Extremities Pulses: Normal: Right Femoral Pulse, Left Femoral Pulse, Right Dorsalis Pedis Pulse, Left Dorsalis Pedis Pulse, Right Posterior Tibial Pulse, Left Posterior Tibial Pulse, Right Radial Pulse, Left Radial Pulse Lower Extremity Edema: None: Bilateral Psych Psychological: normal affect Assessment AND Plan 1. Shortness of breath R06.02 Plan 1. Shortness of breath: Patient has several risk factors and differential diagnosis of his shortness of breath including cardiac, pulmonary, or diaphragmatic flattening. I recommended the patient undergo a treadmill echocardiogram to determine if he has chronotropic incompetence, hypertensive blood pressure response to exercise, or to evaluate for ischemia. The patient has known remaining coronary disease of his mid LAD, and previous stenting to his left circumflex. If it is grossly abnormal, I recommend repeat catheterization with both right and left heart catheterization. In addition he will undergo a 2D echo with Doppler to determine his LV function, pulmonary pressures, and valvular status. I recommend obtaining his pulmonary function test to determine if he has evidence of air trapping to explain his symptoms. If he does not have evidence of air trapping, he may require diaphragmatic stimulation test. The patient also complains of excessive snoring, daytime somnolence, and inability to get a good night sleep. Patient feels tired every morning. I recommended he undergo a full sleep study to assess for possible obstructive sleep apnea. Orders Orders: 2. Atherosclerotic heart disease of [place] coronary artery without angina pectoris I25.10 50-60% stenosis in mid LAD; 80% ostial stenosis of Diagonal 1, which is small. Ramus: small w/mild disease. LCX: 90% stenosis in proion in proximal part. Rt external iliac and rt common femoral have mild luminal irregularities.ximal OM1, large vessel with multiple branches. RCA: Ectatic with no significant obstructive stenosis. Abdominal aortogram: see aortic aneurysm Plan 2. Coronary artery disease: Continue baby aspirin, and atenolol/chlorthalidone. Patient is on 25 mg of atenolol and has sinus bradycardia. He may require alteration of his beta-oneal if he has poor chronotropic competence on stress testing. In the meantime he will obtain a fasting lipid profile. He does require antilipid therapy however he is on no statins. We will tailor his therapy once we get his lipid profile Orders Orders: 3. Aortic aneurysm I71.9 Per Abdominal aortogram done during cath 02/02/2012 @ [facility]: ectatic/aneurysmal infrarenal abdominal aorta. Right common iliac has an aneurysmal portion with a possible 40-50% stenosis in proximal portion. Right exertnal iliac and right common femoral arteries have mild luminal irregularities. Left common iliac has an aneurysmal portion in the proximal part. The right external iliac artery and right common femoral artery have mild luminal irregularities. Plan 3. Aortic aneurysms: The patient had evidence of aortic aneurysms at the base of his aorta on his last catheterization in 2011. Should he require repeat catheterization I would recommend a long 45 cm sheath. 4. Return to office in 6 months. This note was generated using a voice recognition system and there may be incorrect words, spelling or punctuation that were not noted when reviewing the office note prior to saving. Orders Orders: Plan Detail Other Orders Orders: Other Medications New: Follow Up +6M (Unruly) Coding Level of Care Code Off vis,new,level 4 Diagnoses Shortness of breath R06.02 Atherosclerotic heart disease of [place] coronary artery without angina pectoris I25.10 Aortic aneurysm I71.9 Coding Level of Care Code Off vis,new,level 4 Diagnoses Shortness of breath R06.02 Atherosclerotic heart disease of [place] coronary artery without angina pectoris I25.10 Aortic aneurysm I71.9 06/01/18 1148 <Electronically signed by Ramo Tolliver MD> Date Ramo Tolliver MD Cosigner Signature: Date (if applicable) CC: WAGNER Solorzano 12 LEAD ELECTROCARDIOGRAM Observed: 05/10/2018 Status: F Source: [place] 3:15 PM [facility] REPOSITORY [facility] Cardiovascular Services [address] [place] [address] 12 Lead EKG 05/05/18 2354 MR#: [id number] Acct: [id number] Name: KIRIT MCGUIRE Rep #: [id number] : 1950 67 From: Edilberto Donahue MD Attending Dr: Status: DEP ER Ordering Dr: Mal Lopes MD Date: 05/05/18 Location: ED Sex: M C Admitted: Test Reason : SOB Blood Pressure : / mmHG Vent. Rate : 049 BPM Atrial Rate : 049 BPM P-R Int : 164 ms QRS Dur : 104 ms QT Int : 472 ms P-R-T Axes : 047 000 018 degrees QTc Int : 426 ms Sinus bradycardia Otherwise normal ECG Confirmed by BRIANNE TAM, EDILBERTO ([id number]), editor producer BONI MCGUIRE ([id number]) on 05/10/2018 3:14:22 PM Referred By: Chun Vance Confirmed By:EDILBERTO DONAHUE MD 05/10/18 1514 Date Edilberto Donahue MD CC: WAGNER Solorzano; DEAN OF EDUCATION-C Hansa Solorzano; Mal Lopes MD Signed EMERGENCY DEPARTMENT Observed: 05/06/2018 Status: F Source: [place] SUMMARY 3:56 AM [facility] REPOSITORY [facility] Medical Records Department [address] [place] [address] Emergency Department Summary 05/05/18 2333 MR#: [id number] Acct: [id number] Name: KIRIT MCGUIRE Rep #: [id number] : 1950 67 From: Mal Lopes MD PCP: Hansa Solorzano APRN Status: DEP ER - ER Visit Summary Date of Service: 05/05/18 Chief Complaint: Shortness of breath History of Present Illness: The patient is a [address] Solorzano. He reports his shortness of breath began approximately 2 months ago. States that it is severe at worst and mild currently. He states it is unchanged with exertion. It is worse with laying flat. He has seen his primary care physician and had a chest x-ray that was unremarkable. He has an albuterol MDI and nebulizer and reports no relief with these. Patient denies any cough. No fever or chills. No chest pain, pressure, or tightness. He does have a history of a stent in 2011, but does not see a short order fry cook at this time. Physical Examination: Vitals: Stable. Afebrile. General: Well-nourished and well-developed. Head: Normocephalic atraumatic. Neck: Supple, no lymphadenopathy. No JVD. Nontender. Cardiovascular: Regular rate and rhythm. No murmurs. Respiratory: No respiratory distress. Clear to auscultation bilaterally. Abdominal: Soft, nontender, nondistended, normal bowel sounds. No guarding, rebound, or peritoneal signs. Back: Nontender. Extremities: Nontender, no edema. Skin: Normal color, no rash. Neurologic: Alert and oriented 3. Cranial nerves II through XII are intact. Normal strength and sensation. Psych: Normal affect. Test Results: EKG is sinus bradycardia at [address] changes. There is no old EKG for comparison. Troponin is negative. PT DEAN OF EDUCATION is 71. CBC is normal. Chem-7 is more for sodium 134, potassium 3.2, creatinine 0.66, calcium 8.4. Chest x- ray is normal. Emergency Department Course and Treatment: Patient's resting comfortably without complaint. Treatment Plan: I had a prolonged discussion with the patient and his about possible etiologies for this. He was unable to have a sleep study due to anxiety. He has the body habitus of somebody that could to have obstructive sleep apnea. His dyspnea is at night. I have suggested that he follow-up with his primary care physician as soon as possible for further evaluation. Return to the emergency department for any worsening symptoms. Disposition: To home in improved and stable condition. Impression: 1. Dyspnea, uncertain cause. This note was generated with EDMdesigneration software. It may contain incorrect words, spelling, and punctuation that were not noted in review of the chart prior to signing ED Disposition - Plan for ED Patient: Disposition: Home or Assisted Living Chief Complaint: Shortness of Breath Instructions: ED Dyspnea Shortness of Breath Referrals: Hansa Solorzano, RN [Primary Care Provider] - As soon as possible What to do if you have Problems For any increased pain, shortness of breath, bleeding, nausea or vomiting, chest pain, or any unexpected problems, contact your Primary Care Provider. Call [facility] ([phone]) or report to the closest Emergency Room. Call 911 if necessary. 05/06/18 0356 <Electronically signed by Mal Lopes MD> Date Mal Lopes MD Cosigner Signature (If Indicated): Date CC: WAGNER Solorzano; DEAN OF EDUCATION-C Hansa Solorzano CBC W/DIFF, AUTOMATED Collected: 05/05/2018 Status: F Source: [place] 11:45 PM [facility] REPOSITORY TYPE CODE TESTS RESULT OUT OF RANGE REFERENCE UNITS LAB L100.1000 4.4-11.0 K/mm3 Normal WBC 9.5 LAB L100.1200 4.6-6.2 M/mm3 Normal RBC 4.70 LAB L100.1300 13.0-16.5 g/dl Normal HGB 14.3 LAB L100.1400 40-54 % Normal HCT 42.0 LAB L100.1500 80-94 fL Normal MCV 89.4 LAB L100.1600 27.0-32.0 pg Normal MCH 30.4 LAB L100.1700 32-36 g/gl Normal MCHC 34.0 LAB L100.1810 11.6-14.6 % Normal RDW CV 13.1 LAB L100.1820 35.1-43.9 fl Normal RDW SD 42.8 LAB L100.1900 150-450 K/mm3 Normal PLT 246 LAB L100.2000 6.2-12.0 fl Normal MPV 10.1 LAB L100.2100 47-70 % Normal NEUT% 68.1 LAB L100.2200 19-41 % Normal LY% 22.3 LAB L100.2300 0-10 % Normal MONO% 7.8 LAB L100.2400 0-5 % Normal EO% 1.3 LAB L100.2500 0-1 % Normal BASO% 0.1 LAB L100.2550 0.0-0.9 % Normal IM GRAN % 0.400 Result Comment: IG% - Immature Granulocytes (promyelocytes, myelocytes and metamyelocytes) > 1% indicates that a LEFT SHIFT is Present. LAB L100.2620 2.0-7.7 X10 3/uL Normal Absolute Neut 6.5 LAB L100.2720 0.83-4.51 X10 3/ul Normal Absolute Lymph 2.12 Performed By: #### L100.0100 #### [facility] [address] [place], [address] BASIC METABOLIC Collected: 05/05/2018 Status: F Source: [place] PROFILE (BMP) 11:45 PM [facility] REPOSITORY TYPE CODE TESTS RESULT OUT OF RANGE REFERENCE UNITS LAB L501.0100 74-106 mg/dL Normal GLU 100 Result Comment: Fasting Glucose result from 100 to 125 mg/dL suggests IMPAIRED HOMEOSTASIS per A.D.A. criteria. Please note revised GLUCOSE reference range effective 2017. LAB L501.1000 7-18 mg/dL Normal BUN 14 LAB L501.1100 0.70-1.30 mg/dL Low CREAT,SERUM 0.66 Result Comment: The validity of the calculated GFR AND GFRAA in patients over 70 years has not been determined. Clinical correlation is essential. LAB L501.1110 >60 mL/min Normal EST GFR 127 Result Comment: Non- GFR Calc LAB L501.1115 >60 mL/min Normal EST GFR - AA 154 Result Comment: GFR Calc LAB L501.1255 ml/min Normal Estimated CRCL 77.39 LAB L501.1300 10-20 RATIO High BUN/CRE 21.1 LAB L501.2200 8.5-10 mg/dL Low .1 CA 8.4 LAB L501.5300 136-14 mmol/L Low 5 NA 134 LAB L501.5600 3.5-5. mmol/L Low 1 K 3.2 LAB L501.5900 98-107 mmol/L Normal CL 100 LAB L501.6100 21.0-3 mmol/L Normal 2.0 CO2 28.0 LAB L501.6200 5-15 Normal GAP 6 Performed By: #### L500.2500, L501.4010 #### [facility] [address] [facility] [address] [place], [address] TROPONIN-I Collected: 05/05/2018 Status: F Source: [place] 11:45 PM [facility] REPOSITORY TYPE CODE TESTS RESULT OUT OF RANGE REFERENCE UNITS LAB L501.4010 <0.045 ng/mL Normal < 0.015 TROPONIN-I Result Comment: TROPONIN-I EXPECTED VALUES <0.045 Negative 0.045 - 0.590 Consistent with Cardiac Damage > OR = 0.600 Critical Value Not every elevated troponin is indicative of PA. These values should be used with clinical judgement in examining the patient's clinical picture for diagnosis. To establish a diagnosis of PA versus myocardial injury, there must be a demonstrated rise and/or fall in the troponin values, in addition to ischemic symptoms, EKG changes, new regional wall motion abnormality, and/or angiographical evidence. PLEASE NOTE: REFERENCE RANGES EDITED 17 Performed By: #### L500.2500, L501.4010 #### [facility] [address] [place], [address] BNP,B-TYPE NATRIURETIC Collected: 05/05/2018 Status: F Source: [place] 11:45 PM [facility] REPOSITORY TYPE CODE TESTS RESULT OUT OF RANGE REFERENCE UNITS LAB L503.6620 0-100 pg/mL Normal B-TYPE 70.8 MONTY PEP Performed By: #### L503.6620 #### [facility] [address] [facility] [place], [address] CHEST PA AND LATERAL Observed: 05/05/2018 Status: F Source: [place] 11:27 PM [facility] REPOSITORY [facility] Imaging Services [address] [place] [address] Chest PA and Lateral MR#: [id number] Acct: [id number] Name: KIRIT MCGUIRE Rep #: [id number] : 1950 M 67 From: Guido Gibson MD PCP: Hansa Solorzano APRN Status: REG ER Study: Chest PA and Lateral Date of Exam: 05/06/18 Exam# [id number] Ordering Dr: Mal Lopes MD STUDY: X-RAY CHEST REASON FOR EXAM: Male, 67 years old. Shortness of breath for 2 months. TECHNIQUE: PA and lateral views of the chest. COMPARISON: Prior comparison studies are not available for review at this time. FINDINGS: No focal infiltrate is seen. There is no demonstrated pleural abnormality. Normal size heart. Normal mediastinum and jeffrey. Normal visualized pulmonary arteries. There is atherosclerotic tortuosity of the aortic arch and descending thoracic aorta. There are degenerative changes of the visualized thoracic spine. There is degenerative osteoarthritis of the bilateral shoulders. There is no demonstrated abnormality of the visualized soft tissue structures of the upper abdomen. RAD/Chest PA and Lateral IMPRESSION: No active pulmonary disease. Electronically Signed: Guido Gibson MD at 0:35 EDT Tel , Service support , CC: WAGNER Solorzano; Mal Lopes MD Entry Level Drafter: Signed Observed: 04/28/2018 Status: F Source: [place] CULTURE, NOSE 2:45 PM [facility] REPOSITORY Gram Stain Gram Stain Rare White Blood Cells Rare Gram negative rods Nasoph. Cult ORGANISM 1: Morganella morganii sp morgani Amount Growth 1+ Morganella morganii sp morgani: REACTION Amoxacillin/Clavulanic Acid $ >=32 R Ampicillin $ >=32 R Ampicillin/Sulbactam $ >=32 R Cefazolin $ >=64 R Cefepime $ <=1 S Ceftriaxone $ <=1 S Ciprofloxacin $ <=0.25 S Ertapenim $$$ <=0.5 S Gentamicin $ <=1 S Levofloxacin $ <=0.12 S Piperacillin/Tazobactam $$ <=4 S Tobramycin $ <=1 S Trimethoprim/Sulfametho $ <=20 S (NF) indicates non-formulary drug at [facility]. Approval by Infectious Disease Specialist required before non-formulary drugs may be ordered and/or dispensed. Performed By: #### M100.0900 #### [facility] [address] [place], [address] CHEST 2 VIEWS Observed: 03/25/2018 Status: F Source: [place] 1:[address] [address] Patient: KIRIT MCGUIRE Phone#: : 1950 Age: 67 Gender: M Pt. Type: Out Account: [id number] Location: 05 Ordering: HANSA SOLORZANO Exam Date: 03/25/2018/12:47 Family Phys: Charge Code: [id number] Physician: [place] Order #: [id number] DLP Dose#: PROCEDURE: X-RAY CHEST 2 VIEWS COMPARISON: [facility], XR, CHEST AP, 02/01/2012, 23:57. INDICATIONS: Shortness of breath FINDINGS: LUNGS: The lungs are mildly hyperinflated. No significant pulmonary parenchymal abnormalities. VASCULATURE: Normal. Unremarkable pulmonary vasculature. CARDIAC: Normal. No cardiac silhouette abnormality or cardiomegaly. MEDIASTINUM: Aorta is ectatic. PLEURA: Normal. No effusion or pleural thickening. BONES: Normal. No fracture or visible bony lesion. OTHER: Negative. CONCLUSION: No acute disease. No significant change has occurred. Dictated by: Laura Melendez MD on 03/25/2018 at 13:29 Approved by: Laura Melendez MD on 03/25/2018 at 13:29 EMERGENCY REPORT Observed: 11/07/2017 Status: F Source: [place] 7:44 AM [facility] REPORT NAME ACCOUNT SEX AGE ADMIT DISCHARGE PT MED. RECORD# NUMBER DATE DATE TYPE MAYNOR [id number] Robin 67 10/24/17 10/24/17 Nik Rojas [address] ROOM: ER DATE OF : 1950 DICTATING PHYSICIAN: Yady Wesley CHIEF COMPLAINT: Dizzy. HISTORY OF PRESENT ILLNESS: The patient is a 67-year-old who presents to the emergency department having dizziness. States it has been going on for a while, got worse the last couple of weeks. He lost his balance and he blacked out a week ago. Denies any headache or earache. He does have ringing in his ears. He has chronic nasal congestion for which he uses repeated nasal spray [id number]. He does not have any fever or chills. No sore throat. No nausea, vomiting, or diarrhea. In the last couple of weeks he feels like he is off balance when he walks. He gives a history of chronic ear infections as a child. He used to have his ears drained frequently. He has no focal numbness or tingling in the extremities. He has been checking his blood pressure as it goes shooting up very high and then drops down. His described him as being very anxious. PAST MEDICAL HISTORY: Coronary artery disease. He had a stent put in about 5 years ago. CURRENT MEDICATIONS: See nurses' notes. ALLERGIES: Codeine. FAMILY HISTORY: No pertinent family history. SOCIAL HISTORY: He lives with family. REVIEW OF SYSTEMS: As per assessment sheet. PHYSICAL EXAMINATION: He is fully alert, awake, pleasant. Vital Signs: Blood pressure is 145/94 when he arrived. Pulse 58. Respirations 18. Temperature: Normal. O2 saturation normal. Head: Normocephalic, face no edema or swelling. Eyes: No icterus or injection of conjunctivae. Ears: No drainage, no erythema. Tympanic membranes are translucent. Mouth: Mucous membranes are moist. Chest: Symmetrical. No sternal rib retractions, not using accessory muscles. Heart: Regular rhythm, no murmurs or rub audible. Lungs: Clear to auscultation, no rales, rhonchi or wheezes. Abdomen: Soft, no tenderness, no mass, no organomegaly palpable. Neuro: He is fully alert, awake, oriented. Pupils equal and react to light. Extraocular Page 1 of 2 KIRIT MCGUIRE Emergency Room Report movements: He does have horizontal nystagmus especially looking to the right. Face symmetrical. Speech normal. Has no focal neurological deficits. DIAGNOSTIC DATA: Got a scan on his head. Read by the Radiologist and showed no acute infarction or bleed. However, it did show sinus disease. Got laboratory and EKG. The EKG read by me and showed sinus rhythm with a rate of [address]-T changes. Labs: Chemistry show slightly low potassium and sodium. Blood sugar 119, otherwise unremarkable. Troponin was 0.01. White count is 9.2, hemoglobin 15.4 and normal Differential. MEDICAL DECISION MAKING/EMERGENCY DEPARTMENT COURSE: Most likely peripheral vertigo, also consider cardiac dysrhythmia, TIA. We did give him Valium 5 mg p.o. and Antivert 25 mg p.o. This seems to help him relax and he was feeling better. He did not have any trouble getting up and going to the bathroom a couple of times while in the emergency room. It is felt that the patient can be discharged. Advised that he should follow up with ENT and Neurologist. I did give him Dr. Johnson's follow up here, but also advised to check with his family physician for neuro referral. DIAGNOSIS: Vertigo and sinusitis. PLAN/DISPOSITION: Patient to follow up with his physician as above and return if needed. CONDITION ON DISCHARGE: Stable. D: Yady Wesley MD TD: 10/24/17 17:49 JOB #: [id number] Transcribed by: roya Electronically signed by: E-Sign Yady Wesley M.D. 11/07/17 07:44 Page 2 of 2 KIRIT MCGUIRE Emergency Room Report CT BRAIN W/O CONTRAST Observed: 10/24/2017 Status: F Source: [place] 11:23 AM [place] [address] Patient: KIRIT MCGUIRE. Phone#: : 1950 Age: 67 Gender: M Pt. Type: ER Account: [id number] Location: [facility] Ordering: YADY WESLEY Exam Date: 10/24/2017/11:14 Family Phys: HANSA SOLORZANO Charge Code: [id number] Physician: [place] Order #: [id number] DLP Dose#: [id number] PROCEDURE: CT BRAIN WITHOUT CONTRAST COMPARISON: [facility], CT, BRAIN W/O CON, 07/01/2015, 17:49. INDICATIONS: Dizziness TECHNIQUE: CT images were obtained without contrast material. All CT scans at this facility use dose modulation, iterative reconstruction, and/or weight based dosing when appropriate to reduce radiation dose to as low as reasonably achievable. IV CONTRAST: No IV contrast used,0ml TOTAL DOSE: 57.50 CTDIvol(mGy) FINDINGS: CEREBRUM: No edema, hemorrhage, mass. Mild global atrophy. There are physiologic calcifications in the basal ganglia. CEREBELLUM: No edema, hemorrhage, mass. Mild global atrophy. BRAINSTEM: No edema, hemorrhage, mass, or inappropriate atrophy. CSF SPACES: Ventricles, cisterns, and sulci are appropriate for age. No hydrocephalus, subarachnoid hemorrhage, or mass. SKULL: No mass or other significant visible lesion. SINUSES: The right maxillary sinus demonstrates hyperostosis and decreased size, consistent with chronic sinusitis. There is hyperdense material filling and expanding right ethmoid air cells. There is near complete opacification with hyperdense secretions in the right frontal sinus. ORBITS: Limited views are unremarkable. OTHER: Vertebral arteries are ectatic. There are atherosclerotic calcifications of the vertebral and cavernous carotid arteries. CONCLUSION: Continued Report - Page 2 of 2 Patient: KIRIT MCGUIRE Phone#: : 1950 Age: 67 Gender: M Pt. Type: ER Account: [id number] Location: 052 Ordering: YADY COREAES Exam Date: 10/24/2017/11:14 Family Phys: HANSA HERNANDEZLER Charge Code: [id number] Physician: [place] Order #: [id number] DLP Dose#: [id number] 1. No appreciable acute intracranial abnormality. Note: An acute ischemic event may not be initially evident on CT. 2. Partially imaged right chronic sinusitis. Suspected obstruction of the right ethmoid air cell with expansion and near complete opacification of right frontal sinus. Recommend ENT evaluation. 3. Mild global atrophy. 4. Atherosclerosis. Dictated by: Yani Huerta MD on 10/26/2017 at 7:38 Approved by: Yani Huerta MD on 10/26/2017 at 7:54 CBC Collected: 10/24/2017 Status: F Source: [place] 11:10 AM [facility] REPOSITORY TYPE CODE TESTS RESULT OUT OF RANGE REFERENCE UNITS LAB CBC(LOINC) CBC Result Comment: CBC-COMPLETE BLOOD COUNT LAB WBC(LOINC) 4.5 - 10.8 x 10EE3/UL WBC 9.2 LAB RBC(LOINC) 4.50 - x 10EE6/UL 6.00 RBC 5.01 LAB HEMOGLOBIN(LOINC) 13.0 - g/dl 17.5 HEMOGLOBIN 15.4 LAB HEMATOCRIT(LOINC) 40.0 - % 52.0 HEMATOCRIT 44.5 LAB MCV(LOINC) 81 - 98 fl MCV 89 LAB MCH(LOINC) 27 - 33 pg MCH 31 LAB MCHC(LOINC) 32 - 36 X10 3 MCHC 35 LAB RDW/CV(LOINC) 12.0 - % 15.6 RDW/CV 13.2 LAB PLATELET(LOINC) 150 - 450 x10EE3/UL PLATELET 239 LAB MPV(LOINC) 6.4 - 10.5 fl MPV 9.5 Result Comment: AUTOMATED DIFFERENTIAL LAB NEUT %(LOINC) 46.0 - 76.0 % NEUT % High 77.1 LAB LYMPH %(LOINC) 20.0 - 45.0 % Low LYMPH % 17.2 LAB MONOS %(LOINC) 0.0 - 10.0 % MONOS % 4.7 LAB EO %(LOINC) 0.0 - 7.0 % EO % 0.7 LAB BASO %(LOINC) 0.0 - 2.0 % BASO % 0.3 LAB Lymph #(LOINC) 0.80 - 2.80 x10EE3/U L Lymph # 1.60 LAB Neut #(LOINC) 1.50 - 7.10 x10EE3/U L Neut # 7.10 LAB [place] #(LOINC) 0.20 - 1.00 x10EE3/U L [place] # 0.40 LAB EO #(LOINC) 0.00 - 0.50 x10EE3/U L EO # 0.10 LAB Baso #(LOINC) 0.00 - 0.10 x10EE3/U L Baso # 0.00 LAB MANUAL DIFF(LOINC) MANUAL DIFF N/A LAB MORPHOLOGY(INC ) MORPHOLOGY N/A Result Comment: {CD] Performed By: #### [id number] #### [facility],[address] [place] [address] CMP WITH EGFR Collected: 10/24/2017 Status: F Source: [facility] 11:10 AM [facility] REPOSITORY TYPE CODE TESTS RESULT OUT OF RANGE REFERENCE UNITS LAB CMP with eGFR(INC) CMP with eGFR Result Comment: COMPREHENSIVE METABOLIC PANEL LAB SODIUM(LOINC) 136 - 145 mmol/l SODIUM Low 135 LAB POTASSIUM(LOINC) 3.5 - 5.1 mmol/L Low POTASSIUM 3.2 LAB CHLORIDE(LOINC) 98 - 107 mmol/L CHLORIDE 101 LAB CO2(LOINC) 21.0 - mmol/L 31.0 CO2 24.2 LAB GLUCOSE(LOINC) 74 - 106 mg/dl GLUCOSE High 119 LAB BUN(LOINC) 6 - 20 mg/dl BUN 15 LAB CREATININE(LOINC) 0.7 - 1.3 mg/dl Low CREATININE 0.6 LAB AST/SGOT(LOINC) 13 - 39 U/L AST/SGOT 23 LAB ALK PHOS(LOINC) 38 - 126 U/L ALK PHOS 60 LAB CALCIUM(LOINC) 8.6 - mg/dl 10.2 CALCIUM 9.0 LAB TOTAL 6.4 - 8.3 g/dl PROTEIN(LOINC) TOTAL PROTEIN 6.9 LAB ALBUMIN(LOINC) 3.4 - 4.8 g/dL ALBUMIN 4.2 LAB GLOBULIN(LOINC) 1.5 - 3.8 G/DL GLOBULIN 2.7 LAB A/G RATIO(LOINC) 0.9 - 1.6 A/G RATIO 1.6 LAB TOTAL BILI(LOINC) 0.0 - 1.5 mg/dl TOTAL BILI 0.7 LAB B/C RATIO(LOINC) 0 - 30 ratio B/C RATIO 25 LAB ALT/SGPT(LOINC) 10 - 40 U/L ALT/SGPT High 45 LAB ANION GAP(LOINC) 10 - 20 mmol/L ANION GAP 13 LAB AGE(LOINC) years AGE 67 LAB eGFR(LOINC) 60 - 999 ML/MINUTE eGFR >60 LAB eGFR(AA)(LOINC) 60 - 999 ML/MINUTE eGFR(AA) >60 Result Comment: ACCORDING TO THE NATIONAL KIDNEY DISEASE EDUCATION PROGRAM(NKDE), A NORMAL eGFR IS A VALUE GREATER THAN OR EQUAL TO 60 ML/MIN/1.73 SQ METERS. CHRONIC KIDNEY DISEASE: <60mL/MIN/1.73 SQ METERS KIDNEY FAILURE: <15mL/MIN/1.73 SQ METERS THIS TEST SHOULD ONLY BE USED FOR PATIENTS 18 YEARS OF AGE AND OLDER. Performed By: #### [id number] #### [place] [id number] TROPONIN Collected: 10/24/2017 Status: F Source: [facility] 11:10 AM [facility] REPOSITORY TYPE CODE TESTS RESULT OUT OF REFERENCE UNITS RANGE LAB TROPONIN 0.00 - 0.05 ng/ml I(LOINC) TROPONIN I 0.01 Result Comment: Elevated troponin (above the 99th percentile) usually indicates myocardial ischemia. Results must be interpreted within the clinical setting. 1.Non-ischemic pathology can also cause elevated troponin levels (e.g., acute pulmonary embolism, myocarditis, pericarditis, heart failure, intracranial injury, rhabdomyolisis, sepsis, shock and renal insufficiency). 2.Approximately 1% of healthy adults have elevated troponin levels. 3.Analytical false positive results rarely occur(due to multiple interferences such as heterophile antibodies). Performed By: #### [id number] #### [address] [address] ALLERGIES ALLERGIES DATE TYPE / CODE NAME / CODE REACTION SEVERITY SOURCE 07/15/2018 Drug codeine/F006 High Fever Unknown [facility]4160 655430[facility] Repository CT) Drug CODEINE/0000 HIVES, RASH Moderate [facility] Allergy/4160 0386(RXNORM) (Severity [facility] 45739(SNOMED Modifier) Repository CT) (Qualifier Value) ENCOUNTERS ENCOUNTERS ADMIT/DISCHARGE ACCOUNT ADMITTING ENCOUNTER LOCATION SOURCE NUMBER CLASS 07/15/2018/ [id number] Ambulatory BMSBuilding:B [place] 8 4 MS.PMW [facility] [place] [place] Repository 07/06/2018/ [id number] Ambulatory BMSBuilding:B [place] 8 3 MS.WHG [facility] Repository 06/30/2018 [id number] Ambulatory [place] 0 [facility] Hospital ing:[facility] Repository 06/28/2018 [id number] Ambulatory BMSBuilding:W [place] 0 Man [facility] Repository 06/28/2018/ [id number] [facility] [place] 8 8 [facility] ing:ICURoom: Repository [id number]: [id number] 06/28/2018 [id number] [facility] BMSBuilding:B [place] 3 [facility] Repository 06/28/2018 [id number] [facility] Ambulatory BMSBuilding:B [place] 9 MS.CF.[facility] Repository 06/28/2018 [id number] [facility] Ambulatory BMSBuilding:B [place] 7 MS.CF.[facility] Repository 06/28/2018 [id number] [facility] Ambulatory BMSBuilding:B [place] 1 [facility] Repository 06/28/2018 [id number] [facility] Ambulatory BMSBuilding:B [place] 7 [facility] Repository 06/22/2018 [id number] Ambulatory BMSBuilding:B [place] 1 MS.CF.[facility] Repository 06/21/2018 [id number] Ambulatory BMSBuilding:W [place] 1 Man [facility] Repository 06/21/2018/ [id number] [place], Ambulatory [place] 8 2 [facility] ing:ICURoom: Repository [id number]: [id number] 06/15/2018 [id number] Ambulatory [place] 8 [facility] Hospital ing:[facility] Repository 06/15/2018 [id number] Ambulatory BMSBuilding:W [place] 7 Man [facility] Repository 06/09/2018 [id number] Ambulatory BMSBuilding:B [place] 8 MS.CF.[facility] Repository 06/09/2018 [id number] Ambulatory [place] 6 [facility] Hospital ing:[facility] Repository 06/01/2018/ [id number] Ambulatory BMSBuilding:B [place] 8 4 MS.[facility] Repository 05/05/2018/ [id number] Emergency [place] 8 3 [facility] ing:ED Repository 04/28/2018 [id number] Ambulatory [place] 2 [facility] ing:[facility] Repository 04/19/2018 [id number] RASH[place], Ambulatory [place] Repository 03/25/2018/ [id number] RASHAD, Ambulatory [facility] 8 [facility] Repository 10/24/2017/ [id number] WESLEYYADY Emergency Buildin[address] [place] [address] 8 oom: ERBed: [facility] Repository PAYERS PAYERS ENCOUNTER GUARANTOR PAYER SUBSCRIBER SOURCE 07/15/2018 KIRIT L Primary KIRITJOSHUA [id number] CR [facility] [place] MEDICAREPolicy [id number] [place] [address]Kfx: Number: Repository [id number] (HP) Date:[id number] [address] [place] [address]NM: 07/15/2018 Secondary KIRIT L [place] Insurance:MEDICARE MILLERDOB: [facility] PART A [facility] [id number] Hospital Number: Repository [id number] Date:2018-07-01 07/15/2018 Tertiary NOT GIVENUNK [place] Insurance:SELF PAY [facility] Number: Effective Repository Date:2018-07-07 07/06/2018 KIRIT L Primary KIRIT L [place] [id number] CR Insurance:[facility] MILLERDOB: [place], MEDICAREPolicy [id number] [place] [address]Swx: Number: Repository [id number] (HP) Date:[id number] [address] [place] [address] 13262OB: 07/06/2018 Secondary KIRIT L [place] Insurance:MEDICAIDPol LIPSCOMBDOB: [facility] Number: [id number] Hospital [id number] Repository Date:2018-06-21 07/06/2018 Tertiary NOT GIVENUNK [place] Insurance:SELF PAY [facility] Number: Effective Repository Date:2018-07-06 06/30/2018 KIRIT L Primary KIRIT [id number] [address] Insurance:[facility] CARE MILLERDOB: [place], MEDICAREPolicy [id number] [address]Jwk: Number: Repository [id number] (HP) Date:7985-07-56EQ [address] [place] [address] 240[address]ZV: 06/30/2018 Secondary NOT GIVENUNK [place] Insurance:SELF PAY [facility] Number: Effective Repository Date:2018-06-22 06/28/2018 KIRIT Rojas Primary KIRIT [id number] [address] Insurance:[facility] CARE MILLERDOB: [place], MEDICAREPolicy [id number] [place] [address]Fzs: Number: Repository [id number] (HP) Date:[id number] [address] [place] [address]BQ: 06/28/2018 Secondary KIRIT L [place] Insurance:MEDICAIDPol MILLERDOB: [facility] icy Number: [id number] Hospital [id number] Repository Date:2018-06-28 06/28/2018 Tertiary NOT GIVENUNK [place] Insurance:SELF PAY [facility] Number: Effective Repository Date:2018-06-28 06/28/2018 KRIIT L Primary KIRIT [id number] [address] Insurance:[facility] CARE MILLERDOB: [place], MEDICAREPolicy [id number] [place] [address]Dfi: Number: Repository [id number] (HP) Date:[id number] [address] [place] [address]TO: 06/28/2018 Secondary KIRIT L [place] Insurance:MEDICAIDPol [facility] icy Number: [id number] Hospital [id number] Repository Date:2018-06-28 06/28/2018 Tertiary NOT GIVENUNK [place] Insurance:SELF PAY [facility] Number: Effective Repository Date:2018-06-28 06/28/2018 KIRIT L Primary KIRIT Calderon [id number] CR Insurance:SUMMA CARE MILLERDOB: [place], MEDICAREPolicy [id number] [address]Fdn: Number: Repository [id number] (HP) Date:3314-01-94[address] [place] [address] 38196AQ: 06/28/2018 Secondary KIRIT L [place] Insurance:MEDICAIDPol LIPSCOMBDOB: [facility] icy Number: [id number] Hospital [id number] Repository Date:2018-06-28 06/28/2018 Tertiary NOT GIVENUNK [place] Insurance:SELF PAY [facility] Number: Effective Repository Date:2018-06-28 06/28/2018 KIRIT L Primary KIRIT Calderon [id number] CR Insurance:SUMMA CARE MILLERDOB: [place], MEDICAREPolicy [id number] [address]Crg: Number: Repository [id number] (HP) Date:5314-30-28YN [address] [place] [address] 29014CB: 06/28/2018 Secondary KIRIT L [place] Insurance:MEDICAIDPol LIPSCOMBDOB: [facility] icy Number: [id number] Hospital [id number] Repository Date:2018-06-28 06/28/2018 Tertiary NOT GIVENUNK [place] Insurance:SELF PAY [facility] Number: Effective Repository Date:2018-06-28 06/28/2018 KIRIT L Primary KIRITJOSHUA Calderon [id number] CR [facility] MILLERDOB: [place], MEDICAREPolicy 1951[facility] [address]Qpw: Number: Repository [id number] (HP) Date:9902-25-57[address], [place] [address]QZ: 06/28/2018 Secondary KIRIT L [place] Insurance:MEDICAIDPol MILLERDOB: Community icy Number: [id number] Hospital [id number] Repository Date:2018-06-28 06/28/2018 Tertiary NOT GIVENUNK [place] Insurance:SELF PAY [facility] Number: Effective Repository Date:2018-06-28 06/28/2018 KIRIT Rojas Primary KIRIT Calderon [id number] [address] Insurance:SUMMA CARE MILLERDOB: [place], MEDICAREPolicy [id number] General Hospital [address]Doy: Number: Repository [id number] (HP) Date:9623-53-55LX [address] [place] [address] 57270EB: 06/28/2018 Secondary KIRIT L [place] Insurance:MEDICAIDPol MILLERDOB: [facility] icy Number: [id number] Hospital [id number] Repository Date:2018-06-28 06/28/2018 Tertiary NOT GIVENUNK [place] Insurance:SELF PAY [facility] Number: Effective Repository Date:2018-06-28 06/28/2018 KIRIT Rojas Primary KIRIT Calderon [id number] CR Insurance:SUMMA CARE MILLERDOB: [place], MEDICAREPolicy [id number] General Hospital [address]Muy: Number: Repository [id number] (HP) Date:7707-15-97FI [address], [place] [address]NT: 06/28/2018 Secondary KIRIT Claderon Insurance:MEDICAIDPol MILLERDOB: [facility] icy Number: [id number] Hospital [id number] Repository Date:2018-06-28 06/28/2018 Tertiary NOT GIVENUNK [place] Insurance:SELF PAY [facility] Number: Effective Repository Date:2018-06-28 06/22/2018 KIRIT L Primary KIRIT Calderon [id number] [address] Insurance:SUMMA CARE MILLERDOB: [place], MEDICAREPolicy [id number] General Hospital [address]Iwk: Number: Repository [id number] (HP) Date:8845-70-87EY [address] [place] [address]13[address]XZ: 06/22/2018 Secondary NOT GIVENUNK [place] Insurance:SELF PAY [facility] Number: Effective Repository Date:2018-06-22 06/21/2018 KIRIT L Primary KIRIT Calderon [id number] [address] Insurance:SUMMA CARE MILLERDOB: [place], MEDICAREPolicy [id number] General Hospital [address]Mly: Number: Repository [id number] (HP) Date:4087-16-74WG [address] [place] [address]OR: 06/21/2018 Secondary KIRIT L [place] Insurance:MEDICAIDPol MILLERDOB: [facility] ic Number: [id number] Hospital [id number] Repository Date:2018-06-15 06/21/2018 Tertiary NOT GIVENUNK [place] Insurance:SELF PAY [facility] Number: Effective Repository Date:2018-06-21 06/21/2018 KIRIT L Primary KIRIT Calderon [id number] [address] Insurance:SUMMA CARE MILLERDOB: [place], MEDICAREPolicy [id number] General Hospital [address]Ujf: Number: Repository [id number] (HP) Date:3388-88-19MD [address] [address]BT: 06/21/2018 Secondary KIRIT L [place] Insurance:MEDICAIDPol MILLERDOB: [facility] icy Number: [id number] Hospital [id number] Repository Date:2018-06-15 06/21/2018 Tertiary NOT GIVENUNK [place] Insurance:SELF PAY [facility] Number: Effective Repository Date:2018-06-15 06/15/2018 KIRIT L Primary KIRITJOSHUA Calderon [id number] [address] Insurance:SUMMA CARE MILLERDOB: [place], MEDICAREPolicy [id number] General Hospital [address]Jji: Number: Repository [id number] (HP) Date:4915-75-98FC [address] [place] [address] 484[address]OF: 06/15/2018 Secondary KIRIT L [place] Insurance:MEDICAIDPol MILLERDOB: Community icy Number: [id number] Hospital [id number] Repository Date:2018-06-01 06/15/2018 Tertiary NOT GIVENUNK [place] Insurance:SELF PAY [facility] Number: Effective Repository Date:2018-06-01 06/15/2018 KIRIT L Primary KIRIT Calderon [id number] [address] Insurance:SUMMA CARE MILLERDOB: [place], MEDICAREPolicy [id number] General Hospital [address]Srm: Number: Repository [id number] (HP) Date:2424-11-27FJ [address] [place] [address] 30479WF: 06/15/2018 Secondary KIRIT L [place] Insurance:MEDICAIDPol MILLERDOB: [facility] icy Number: [id number] Hospital [id number] Repository Date:2018-06-01 06/15/2018 Tertiary NOT GIVENUNK [place] Insurance:SELF PAY [facility] Number: Effective Repository Date:2018-06-15 06/09/2018 KIRIT L Primary KIRIT Calderon [id number] [address] Insurance:SUMMA CARE MILLERDOB: [place], MEDICAREPolicy [id number] General Hospital [address]Xso: Number: Repository [id number] (HP) Date:8772-87-69NV [address] [place] [address] 267[address]WO: 06/09/2018 Secondary KIRIT L [place] Insurance:MEDICAIDPol MILLERDOB: [facility] icy Number: [id number] Hospital [id number] Repository Date:2018-06-01 06/09/2018 Tertiary NOT GIVENUNK [place] Insurance:SELF PAY [facility] Number: Effective Repository Date:2018-06-09 06/09/2018 KIRIT L Primary KIRITJOSHUA Calderon [id number] [address] Insurance:SUMMA CARE MILLERDOB: [place], MEDICAREPolicy [id number] General Hospital [address]Bdt: Number: Repository [id number] (HP) Date:9941-05-34JM [address] [address]CU: 06/09/2018 Secondary KIRIT L [place] Insurance:MEDICAIDPol MILLERDOB: [facility] icy Number: [id number] Hospital [id number] Repository Date:2018-06-01 06/09/2018 Tertiary NOT GIVENUNK [place] Insurance:SELF PAY [facility] Number: Effective Repository Date:2018-06-01 06/01/2018 KIRIT L Primary KIRIT L [place] [id number] CR [facility] MILLERDOB: [place], MEDICAREPolicy [id number] General Hospital 48[address]Nul: Number: Repository [id number] (HP) Date:4683-71-40MP [address] [address]ZL: 06/01/2018 Secondary KIRIT L [place] Insurance:MEDICAIDPol MILLERDOB: [facility] icy Number: [id number] Hospital [id number] Repository Date:2018-05-13 06/01/2018 Tertiary NOT GIVENUNK [place] Insurance:SELF PAY [facility] Number: Effective Repository Date:2018-06-01 05/05/2018 KIRIT L Primary KIRIT L [place] [id number] CR [facility] MILLERDOB: [place], MEDICAREPolicy [id number] General Hospital [address]Dtw: Number: Repository [id number] (HP) Date:3402-25-24RF [address] [address]TT: 05/05/2018 Secondary KIRIT L [place] Insurance:MEDICAIDPol [facility] icy Number: [id number] Hospital [id number] Repository Date:2018-05-05 05/05/2018 Tertiary NOT GIVENUNK [place] Insurance:SELF PAY [facility] Number: Effective Repository Date:2018-05-05 04/28/2018 KIRIT Rojas Primary KIRIT Calderon [id number] CR Insurance:SUMMA CARE MILLERDOB: [place], MEDICAREPolicy [id number] General Hospital [address]Kxr: Number: Repository [id number] (HP) Date:5115-76-21[address] [place] [address]UN: 04/28/2018 Secondary KIRIT Calderon Insurance:MEDICAIDPol MILLERDOB: [facility] icy Number: [id number] Hospital [id number] Repository Date:2018-04-28 04/28/2018 Tertiary NOT GIVENUNK [place] Insurance:SELF PAY [facility] Number: Effective Repository Date:2018-04-28 04/19/2018 KIRIT Primary KIRIT Lemus MILLERDOB: Insurance:SUMMACAREPo MILLERDOB: [facility] licy Number: [id number] Hospital CR [id number] [address] [place] [address] [place] [address], Date:6656-62-86Zaex [address] [place] [address]Tgz: Name:[place] [address] (HP) 03/25/2018 KIRIT Lemus MILLERDOB: Insurance:RADIOLOGY MILLERDOB: [facility] PACKAGEPolicy Number: [id number] Hospital CR Effective Date: 7 CR Repository [address] [place] [address]Tyo: [place] [address] (HP) 10/24/2017 KIRIT Primary KIRIT Lemus MILLERDOB: Insurance:[facility] MILLERDOB: [facility] [id number] [facility] CR OUTPATIENT DUAPolicy 7 CR Repository [address] [place] [address], Number: [address] [place] [address]Swp: [id number] [address] Date:Plan Name:C3 () 10/24/2017 Secondary KIRIT Lemus Insurance:[facility] [id number] [facility] PHYSICIAN DUALPolicy 7 CR Repository Number: [place], [id number] [place] [address] Date:Plan Name:
== END 2018-06-30 18:15 | disposition home or self-care (01) ==
LOC: ED 17:26 → PCU 19:39 → ICU 06-30 10:53
PROVIDERS: Internal Medicine Cardiovascular Disease; Admitting Provider Family Medicine; Emergency Provider Emergency Medicine; Family Provider Nurse Practitioner Family; Visit Provider Family Medicine
DX: R07.89 Other chest pain (principal); I25.10 Atherosclerotic heart disease of native coronary artery without angina pectoris; R06.09 Other forms of dyspnea; I10 Essential (primary) hypertension; N40.0 Benign prostatic hyperplasia without lower urinary tract symptoms; Z79.899 Other long term (current) drug therapy; Z79.82 Long term (current) use of aspirin; Z79.02 Long term (current) use of antithrombotics/antiplatelets; R94.39 Abnormal result of other cardiovascular function study; Z87.891 Personal history of nicotine dependence; Z95.5 Presence of coronary angioplasty implant and graft; E78.5 Hyperlipidemia, unspecified; F41.9 Anxiety disorder, unspecified; F32.9 Major depressive disorder, single episode, unspecified
CPT/HCPCS: 36415; 71045; 71275; 80048; 84443; 84484; 85025; 85027; 85347; 85610; 85730; 93005; 93458; 93571; 94640; 96361; 96372; 96374; 96375; 96376; 97802; 99218; 99285; J0153; J7030; Q9967; A4216; C1769; C1887; C1894; G0378; J1940; J2405

== ENCOUNTER 2018-08-10 07:41 | Outpatient (RCR) | payer MEDICARE, SELFPAY ==
[2018-06-21 14:00] VITALS: BMI 37.8
[2018-07-29 09:58] VITALS: BMI 36.7
== END 2018-08-10 19:00 | disposition home or self-care (01) ==
LOC: SP 07:41
PROVIDERS: Family Provider Nurse Practitioner Family; Referring Provider Nurse Practitioner Acute Care; Visit Provider Nurse Practitioner Acute Care
DX: J38.3 Other diseases of vocal cords (principal)

== ENCOUNTER → 2020-01-25 10:57 | Outpatient (CLI) | payer MEDICARE, SELFPAY ==
[2018-06-21 14:00] VITALS: BMI 37.8
[2020-01-25 10:53] VITALS: BMI 35.2
--- NOTE | 2020-01-25 10:59 | RAD_ITS ---
STUDY: X-RAY - RIGHT KNEE REASON FOR EXAM: Male, 69 years old. PAIN AND CRACKING IN RIGHT KNEE FOR A LONG TIME. NOW HE FEELS LIKE HIS LEG IS WEAK AND GOING TO GO OUT ON HIM. TECHNIQUE: 4 view(s) of the knee. COMPARISON: None. FINDINGS: Normal visualized distal femur. Normal visualized proximal tibia and fibula. Normal proximal tibiofibular articulation. There is severe degenerative arthrosis of the medial femorotibial compartment with severe joint space narrowing. There is moderate degenerative arthrosis of the lateral femorotibial compartment with moderate joint space narrowing. There is moderate degenerative arthrosis of the patellofemoral articulation. No demonstrated effusion but there are extensive degenerative spurs. There are atherosclerotic calcifications. RAD/Knee 4 or More Views IMPRESSION: Extensive tricompartmental arthrosis with degenerative spurs, no demonstrated fracture or suspicious osseous lesion Electronically Signed: Phi Alfonso MD at 11:20 EDT , Service support ,
== END ==
PROVIDERS: PCP Nurse Practitioner Family; Referring Provider Orthopaedic Surgery; Visit Provider Orthopaedic Surgery
DX: M25.561 Pain in right knee (principal)
CPT/HCPCS: 73564

== ENCOUNTER → 2020-02-15 10:53 | Outpatient (CLI) | payer MEDICARE, SELFPAY ==
[2018-06-21 14:00] VITALS: BMI 37.8
[2020-01-25 10:53] VITALS: BMI 35.2
--- NOTE | 2020-02-15 10:54 | CT_ITS ---
STUDY: CT RIGHT LOWER EXTREMITY REASON FOR EXAM: Right knee pain, surgical planning. TECHNIQUE: Transaxial CT imaging of the knee, hip and ankle was performed. Coronal and sagittal images were reformatted. Individualized dose optimization techniques were used for this CT. COMPARISON: Radiographs 01/25/2020. FINDINGS: Knee: There are marginal osteophytes, subchondral cystic change, subchondral eburnation and joint space loss of the medial femorotibial compartment (coronal reconstructions 22-30). There are small marginal osteophytes and mild joint space narrowing of the mesial aspect of the lateral femorotibial compartment (coronal reconstructions 30-32). There is mild vacuum phenomenon in the lateral femorotibial compartment (coronal reconstruction 32). There are marginal osteophytes and joint space narrowing of the patellofemoral articulation (sagittal reconstruction 25) Normal proximal tibiofibular articulation. There is no joint effusion. The quadriceps tendon is grossly normal. There is a corticated osseous fragment at the anterior tibial tubercle (sagittal reconstructions 22, 23), a sequelae of remote Glencliff-Schlatter''s disease. Normal Hoffa''s fat pad. There is a cystic lesion with small intra-articular bodies and gas at the posterior medial aspect of the knee (axial images 318-376) suggestive of a popliteal cyst. There is calcification in the proximal medial collateral ligament (coronal reconstructions 19, 20). There is vascular calcification. Hip: There is preservation of the joint space of the right hip. There is a herniation pit at the lateral aspect of the right femoral neck (coronal reconstruction 60). There is vascular calcification. Ankle: There are anterior osteophytes of the distal tibia (sagittal reconstructions 39, 40) and joint space narrowing at the posterior aspect of the tibiotalar articulation (sagittal reconstructions 39-40). There is a cyst in the anterior superior calcaneal process (sagittal reconstruction 32). There is a cyst at the anterior aspect of the lateral malleolus (sagittal reconstruction 26). There is joint space preservation of the posterior subtalar, talonavicular and calcaneocuboid articulations. CT/Extremity Lower without Contra IMPRESSION: Tricompartmental arthrosis of the knee. Cystic lesion with small intra-articular bodies and gas at the posterior medial aspect of the knee suggestive of a popliteal cyst. Electronically Signed: Villa Parsons MD at 12:00 EDT Tel , Service support ,
== END ==
PROVIDERS: PCP Student in an Organized Health Care Education/Training Program; Referring Provider Orthopaedic Surgery; Visit Provider Orthopaedic Surgery
DX: M17.11 Unilateral primary osteoarthritis, right knee (principal)
CPT/HCPCS: 73700

== ENCOUNTER → 2020-02-20 09:47 | Outpatient (CLI) | payer MEDICARE, SELFPAY ==
[2018-06-21 14:00] VITALS: BMI 37.8
[2020-01-25 10:53] VITALS: BMI 35.2
--- NOTE | 2020-02-20 09:48 | STEWCON_ITS ---
Reason For Study: CAD/ASHD Stress Results Protocol: Prasad Protocol WITH DEFINITY Maximum Predicted HR: 152 bpm Target HR: 129 bpm % Maximum Predicted HR: 79 % DurationHeart Rate Stage (mm:ss) (bpm) BP Comment BASELINE 65 132/84 STAGE 1 3:00 88 158/90 STAGE 2 3:00 116 / INCREASED SOB,UNABLE TO OBTAIN BP D/T HELPING WITH TREADMILL STAGE 3 0:23 120 / SOB RECOVERY 90 132/825CC DEFINITY TOTAL FOR TEST Stress Duration: 6:23 mm:ss Maximum Stress HR: 120 bpm Baseline Echocardiogram Findings The estimated ejection fraction is 65 %. Stress Echo Wall motion Data Resting WM Intermediate WM Stress WM Resting Wall Motion Wall Motion Stress No regional wall motion No regional wall motion abnormalities noted. abnormalities noted. EKG Data The baseline ECG displays normal sinus rhythm. The patient exercised according to the regular Prasad protocol for a total duration of 6:23. The maximum heart rate attained was 121 beats per minute. This was 79% of maximum predicted heart rate. The patient exercised into stage 3 of the Prasad protocol. During stress, there were no ST or T wave changes noted to suggest ischemia. No clinical angina was noted. Interpretation Summary The estimated ejection fraction is 65 %. Normal, submaximal, treadmill echocardiogram. Negative for ischemia by EKG and echocardiographic criteria. no anginal symptoms noted. Rare PVCs noted. Appropriate blood pressure response to exercise. Below average exercise capacity for age. Test terminated due to dyspnea and difficulty with doing treadmill. Final LVEF is 75%. Decrease sensitivity due to poor echo windows requiring Definity agent as well as inability to reach target heart rate. Patient's rate-pressure product was 17,920 making this an adequate test. No complications. Ordering Physician: Jasper Gutierrez Referring Physician: Ramo Tolliver Performed By: Cherelle Blackmon, TANYA, RVT
== END ==
LOC: CVS 09:48
PROVIDERS: PCP Nurse Practitioner Family; Referring Provider Internal Medicine Cardiovascular Disease; Visit Provider Internal Medicine Cardiovascular Disease
DX: I25.10 Atherosclerotic heart disease of native coronary artery without angina pectoris (principal); I71.9 Aortic aneurysm of unspecified site, without rupture; I10 Essential (primary) hypertension; R06.02 Shortness of breath; Z95.5 Presence of coronary angioplasty implant and graft
CPT/HCPCS: 93017; 93350; Q9957; A4216; C8928

== ENCOUNTER 2020-02-28 08:32 | Day surgery (SDC) | payer MEDICARE, SELFPAY ==
[2018-06-21 14:00] VITALS: BMI 37.8
[2020-01-25 10:53] VITALS: BMI 35.2
--- NOTE | 2020-02-15 11:11 | EKG12_ITS ---
Test Reason : PRE OP Blood Pressure : / mmHG Vent. Rate : 058 BPM Atrial Rate : 058 BPM P-R Int : 126 ms QRS Dur : 094 ms QT Int : 414 ms P-R-T Axes : 041 011 007 degrees QTc Int : 406 ms Sinus bradycardia with Premature atrial complexes Otherwise normal ECG Confirmed by SERENA TAM, MUSTAPHA ([id number]), slot editor ANEESH MORSE ([id number]) on 02/17/2020 9:09:24 AM Referred By: Lebron Arias Confirmed By:LEONARDO LYONS MD
[2020-02-15 12:09] LABS: Absolute Lymphocyte Count 1.62 X10^3/uL (0.83-4.51); Absolute Neutrophil Count 6.8 X10^3/uL (2.0-7.7); Basophil# 0.02 X10^3/uL; Basophil% 0.2 % (0-1); Eosinophil# 0.09 X10^3/uL; Hematocrit 41.1 % (40-54); Hemoglobin 13.7 g/dL (13.0-16.5); Lymphocyte # 1.62 X10^3/ul (4.0); Lymphocyte % 17.8 % (19-41); Mean Corp Hgb Conc 33.3 g/dL (32-36); Mean Corpuscular Hgb 29.9 pg (27.0-32.0); Mean Corpuscular Volume 89.7 fL (80-94); Mean Platelet Vol. 10.4 fl (6.2-12.0); Monocyte# 0.51 X10^3/uL; Monocyte% 5.6 % (0-10); NRBC Flagged by Analyzer 0 % (0-5); Neutrophil % 74.8 % (47-70); Platelet Count 281 K/mm3 (150-450); RBC Distribution Width CV 13.7 % (11.6-14.6); RBC Distribution Width SD 44.9 fl (35.1-43.9); Red Blood Count 4.58 M/mm3 (4.6-6.2); White Blood Count 9.1 K/mm3 (4.4-11.0)
[2020-02-15 12:21] LABS: Partial Thromboplast Time 25.6 Seconds (24.1-36.2); Prothrombin Time (Protime)PT. 12.8 SECONDS (11.7-14.9)
[2020-02-15 12:39] LABS: Anion Gap 6 (5-15); BUN 21 mg/dL (7-18); BUN/Creat Ratio 17.9 RATIO (10-20); Calcium,Total 8.6 mg/dL (8.5-10.1); Chloride 105 mmol/L (98-107); Creatinine, Serum 1.17 mg/dL (0.70-1.30); EST Glomerular Filtration Rate 66 mL/min (>60); Est Glom Filt Rate - Afr Amer 80 mL/min (>60); Glucose 113 mg/dL (74-106); Potassium 3.7 mmol/L (3.5-5.1); Sodium Level 136 mmol/L (136-145)
[2020-02-27 10:37] VITALS: BMI 35.2
[2020-02-28] VITALS (12 sets, daily range): BP systolic 117–139; BP diastolic 76–93; PULSE 63–85; RESP 16–18; TEMP 35.8–36.5; O2SAT 93–100; BMI 41.5
[2020-02-28 09:21] LABS: Magnesium 2.3 mg/dL (1.6-2.6)
[2020-02-28 09:26] LABS: Bedside Glucose 126 mg/dL (70-110)
[2020-02-28] MEDS: Acetaminophen 500 MG Tablet 1000 MG PO (09:35)
[2020-02-28] MEDS: Celecoxib 200 MG Capsule 400 MG PO (09:36)
[2020-02-28] MEDS: Gabapentin 600 MG Tablet PO (09:36)
[2020-02-28] MEDS: Scopolamine 1mg/72hr Patch 1 PATCH TRANSDERM. (09:39)
--- NOTE | 2020-02-28 09:48 | HP.PCM_ITS ---
History and Physical Date of Admission: 02/28/20 Intake Intake Visit Reasons: right knee Allergies atorvastatin [From Lipitor] Adverse Reaction (Severe, Verified 02/27/20 10:34) Myalgias codeine Adverse Reaction (Verified 02/27/20 10:34) High Fever Medications aspirin 81 mg tablet,delayed release 81 mg PO DAILY 05/31/18 [History Confirmed 02/27/20] azelastine-fluticasone 137 mcg-50 mcg/spray nasal spray 1 spray INTRANASAL BID #23 g 07/15/18 [Rx Confirmed 02/27/20] clopidogrel 75 mg tablet 75 mg PO DAILY #30 tab 01/28/19 [Rx Confirmed 02/27/20] atenolol 25 mg tablet 25 mg PO DAILY #30 tab 08/09/19 [Rx Confirmed 02/27/20] losartan 25 mg tablet 25 mg PO DAILY PRN 08/11/19 [History Confirmed 02/27/20] gemfibrozil 600 mg tablet 600 mg PO BID #60 tab 02/07/20 [Rx Confirmed 02/27/20] Albuterol IH (ProAir) [Proair Hfa (SP)Vent Pts] 1 - 2 puff INHALATION Q4H PRN PRN 02/15/20 [History Confirmed 02/27/20] Ascorbic Acid [Vitamin C] 1,500 mg PO DAILY 02/15/20 [History Confirmed 02/27/20] Budesonide/Formoterol Fumarate [Symbicort 80-4.5 Mcg Inhaler] 2 puff IH BID 02/15/20 [History Confirmed 02/27/20] Cyanocobalamin (Vitamin B-12) [Vitamin B-12] 2,500 mcg PO DAILY 02/15/20 [History Confirmed 02/27/20] Hydrochlorothiazide 12.5 mg PO DAILY 02/15/20 [History Confirmed 02/27/20] L.acidoph,Paracasei, B.lactis [Probiotic] 1 ea PO DAILY 02/15/20 [History Confirmed 02/27/20] PFSH Social History (Updated 02/27/20 @ 11:[address] Lebron Arias DO) Smoking Status: Former smoker how long ago did patient quit smokin, 2ppd second hand exposure: Yes HPI right knee: Details: Parts of this documentation were recorded by a scribe, this documentation accurately reflects the service provided and the decisions made by me, Dr. Lebron Arias, DO 02/27/20 0755. KIRIT MCGUIRE is a 69 year old M here today for right knee pain. Patient states that he continues to have right knee pain. Patient is ambulating with a cane. Patient states that he stopped his blood thinners for almost a week. He has increased knee pain with daily activities. He denies any numbness or tingliong. He is scheduled for surgery tomorrow. ROS Musc Reports joint pain, Denies numbness, Reports stiffness, Denies tingling Neuro No numbness, No tingling Ortho Exam Right Knee Skin/Wound: Yes CDI, No erythema, No ecchymosis, No swelling Homans Sign: No Knee ROM: Yes ROM-Extension -20 to 0, Yes ROM-Flexion 0-140 (90) Examination: Yes Med jt line tenderness, No Lat jt line tenderness, Yes Crepitus Stability: NML: Anterior Drawer, NML: Posterior Drawer, NML: Valgus 30, NML: Varus 30 Patella Grind: Yes KNEE: antalgic gait.prominent varicose veins. varus deformity. no palpable sensation loss. good ankle range of motion. 08/06 pulses Supplemental Info 01/25/2020 x-rayRight knee: Advanced tricompartmental degenerative joint disease Assessment & Plan Problems 1. Primary osteoarthritis of right knee M17.11 Plan Reviewed the pre-operative plans with the patient. Risks and benefits of the procedure were fully explained, including but not limited to infection, neurovascular injury, continued pain, arthritis, stiffness, need for further surgery, re-injury, DVT, PE, general risks of anesthesia, and loss of limb or life. The patient understands all the risks and does wish to proceed with written consent. Patient has physical therapy already scheduled. He should bring his walker with him tomorrow. Follow up in 2 weeks for his post op appointment or sooner if pain, swelling, numbness or associated symptoms, or concerns develop. All questions answered. Patient in agreement of plan. Coding Level of Care Code Off vis,est,level 2 Diagnoses Primary osteoarthritis of right knee M17.11 ??Osteoarthritis type: primary I have re-examined the patient. There are no clinical changes since date of exam Procedure Criteria Procedure Type: Elective COVID Risk Discussion: The surgeon/proceduralist and patient have discussed in detail the risk of exposure to and/or potential harm posed by the COVID-19 virus with having a surgery/procedure at this time versus the risk of delaying the surge ry/procedure. It is not possible to know either the risk of delaying the surgery or procedure or chance of getting an infection with perfect accuracy, but a joint decision was made between the patient and the surgeon/proceduralist to proceed at this time with the scheduled surgery/procedure as indicated on the consent form.
[2020-02-28] MEDS: Lactated Ringers 1,000 ML 100 ML IV (09:50)
[2020-02-28] MEDS: Magnesium Sulfate 4gm/100mL 4 GM/100 ML IV.SOLN. IV (10:10)
[2020-02-28] MEDS: Cefazolin 2 GM in 0.9% Normal Saline 100 ML IV (10:38)
[2020-02-28] MEDS: dexAMETHasone 10 MG/ML Vial IV (10:48)
[2020-02-28] MEDS: Betamethasone/Betamethasone 30 MG/5 ML Vial (12:20)
[2020-02-28] MEDS: Epinephrine (1 mg/ml) 1 MG/ML VIAL (12:20)
[2020-02-28] MEDS: 0.9% Normal Saline (Pres. free 10 ML Vial ×2 (12:20)
[2020-02-28] MEDS: Bupivacaine Mpf 0.5% 30 ML VIAL (12:20)
--- NOTE | 2020-02-28 13:03 | RAD_ITS ---
STUDY: X-RAY - RIGHT KNEE REASON FOR EXAM: Male, 69 years old. POST -OP TECHNIQUE: 2 view(s) of the knee. COMPARISON: 01-25-20. FINDINGS: Metallic knee arthroplasty. The femoral component and tibial component are in good anatomic alignment. Postop deformity of the patella. Soft tissue air emphysema and swelling of the right knee. Midline surgical radha overlying the anterior surface of the knee. RAD/Knee 1 or 2 Views IMPRESSION: Normal postop right knee arthroplasty radiographs with postop soft tissue air emphysema and swelling. Electronically Signed: Anthony Serrano MD at 14:19 EDT , Service support ,
[2020-02-28] MEDS: Lactated Ringers 1,000 ML 500 ML IV (14:27)
[2020-02-28] MEDS: Cefazolin 1 GM/50 ML BAG IV (17:07)
--- NOTE | 2020-02-29 10:41 | PCM.DC.ORTHO ---
Discharge Diet: No Restrictions Weight Bearing Status: Weight bearing as tolerated Call your doctor if you observe: Shortness of breath, Chest pain Additional Instructions: Ice and elevate one week while not ambulating. Ambulation is encouraged. Weightbearing as tolerated. Use assistive devise for stability. Encourage FULL knee extension and flexion 1 time EVERY time you get up and down and MULTIPLE times per day. No showering 72 hours after surgery. Begin showering postop day #3. Remove the dressing prior to shower and gently wash with warm water and antibacterial soap then pat dry and place abdominal pad (or plain gauze) and KEVIN hose over top. This is to be done daily. Do not submerge for 3 weeks. If not showering daily after the initial 72 hours then you must clean incision and change dressing daily. Do not allow animals near the incision area. Keep clean. Follow anticoagulation recommendations as prescribed. Do not take any NSAIDs while on blood thinner. Do not take any additional narcotic pain medication other than what was perscribed on you surgery day without discussing with physician. Start physical therapy. If you are not currently scheduled for physical therapy or you are unsure of appointment time please call office [facility] to arrange. Call Dr. Arias with any concerns. Allergies/Adverse Reactions: Allergies atorvastatin [From Lipitor] Adverse Reaction (Severe, Verified 02/28/20 09:23) Myalgias codeine Adverse Reaction (Verified 02/28/20 09:23) High Fever Medications to take at Discharge aspirin 81 mg tablet,delayed release 81 mg PO DAILY 05/31/18 azelastine-fluticasone 137 mcg-50 mcg/spray nasal spray 1 spray INTRANASAL BID #23 g 07/15/18 clopidogrel 75 mg tablet 75 mg PO DAILY #30 tab 01/28/19 atenolol 25 mg tablet 25 mg PO DAILY #30 tab 08/09/19 losartan 25 mg tablet 25 mg PO DAILY PRN 08/11/19 gemfibrozil 600 mg tablet 600 mg PO BID #60 tab 02/07/20 Albuterol IH (ProAir) [Proair Hfa (SP)Vent Pts] 1 - 2 puff INHALATION Q4H PRN PRN 02/15/20 Ascorbic Acid [Vitamin C] 1,500 mg PO DAILY 02/15/20 Budesonide/Formoterol Fumarate [Symbicort 80-4.5 Mcg Inhaler] 2 puff IH BID 07/15/20 Cyanocobalamin (Vitamin B-12) [Vitamin B-12] 2,500 mcg PO DAILY 02/15/20 Hydrochlorothiazide 12.5 mg PO DAILY 02/15/20 L.acidoph,Paracasei, B.lactis [Probiotic] 1 ea PO DAILY 02/15/20 Acetaminophen [Tylenol Extra Strength] 1,000 mg PO Q6H PRN #100 tab 02/28/20 Apixaban [Eliquis] 2.5 mg PO BID #30 tab 02/28/20 Cephalexin [Keflex] 1,000 mg PO Q8 #4 cap 02/28/20 Ondansetron HCl [Zofran] 4 mg PO Q6H PRN PRN 5 Days #10 tab 02/28/20 Oxycodone [Oxyir] 5 mg PO Q4H PRN PRN #60 tab 02/28/20 hydrocodone 5 mg-acetaminophen 325 mg tablet 1 - 2 tab PO Q6H PRN #30 tab 02/29/20 The following prescriptions were given: Apixaban [Eliquis] 2.5 mg PO BID #30 tab Transmission Status: Received by [facility] Cephalexin [Keflex] 1,000 mg PO Q8 #4 cap Transmission Status: Received by [facility] Oxycodone [Oxyir] 5 mg PO Q4H PRN PRN #60 tab PRN Reason: Pain Score 4-10/10 Transmission Status: Received by [facility] Acetaminophen [Tylenol Extra Strength] 1,000 mg PO Q6H PRN #100 tab Transmission Status: Received by [facility] Ondansetron HCl [Zofran] 4 mg PO Q6H PRN PRN 5 Days #10 tab PRN Reason: Nausea Transmission Status: Received by [facility] Orders to be completed after discharge: CORONAVIRUS 19, ELVIS SCREEN Time Frame: 02/20/20, Facility: [facility], Location: Laboratory Primary Care Physician: Barb Hilliard MD [Primary Care Provider] - Test Results: Test results from this visit will be discussed in further detail at your follow-up appointment, if applicable. Please Follow Up With: Lebron Arias DO - 2 weeks
--- NOTE | 2020-02-29 10:42 | OP.PCM_ITS ---
Report of Operation Date of Procedure: 02/29/20 Description of Surgical Findings:: Preoperative diagnosis: right knee DJD Postoperative diagnosis: Same Procedure: right total knee arthroplasty CT guided Robotic Assisted Implant: Luís triathlon cemented femoral component size6, cemented tibial baseplate size 6, cemented asymmetric patella polyethylene X3 size 9 CS Anesthesia: Spinal with adductor canal block Complications: None Condition: Stable to PACU Estimated blood loss: 150 cc Indication for procedure: This is a 69-year-old male with long standing degenerative joint disease of the knee who has failed conservative treatment and wished to proceed with elective total knee arthroplasty. Risk benefits and alternatives were reviewed including; risk of bleeding, infection, nerve artery and tissue damage, continued pain, postoperative stiffness, venous thromboembolism, need for postoperative rehabilitation, mechanical feel to the knee, and expected postoperative course. The operative CT and templating was performed with component sizing Procedure: The patient was met in the preoperative holding area. The operative extremity was identified by both patient and physician and was marked. Patient was met by anesthesia. An adductor canal block was placed by anesthesia postoperatively the patient was brought back to the operating room on a wheeled cart and transferred to the operating table in the supine position. Anesthesia was started. A well-padded tourniquet was placed on the operative extremity. The patient was prepped and draped in the usual sterile fashion. A timeout was called to ensure the proper patient procedure and extremity were being contemplated. An Esmarch was used to exsanguinate the extremity. The tourniquet was inflated. A 10 blade scalpel was used to make a midline incision down through the skin and subcutaneous tissue. Skin retractors placed. Bovie was used to perform meticulous hemostasis. full-thickness flaps were elevated medial and lateral along the joint capsule. A deep blade scalpel was used to perform a medial parapatellar arthrotomy. The knee was brought to full extension. A Bovie was used to release the soft tissues off the most proximal aspect of the medial tibial plateau a three-quarter inch curved osteotome was also used for this process. The infrapatellar fat pad was excised. The fat pad was excised partially anterior lateral portion the anterior medial was elevated from the femur. At this point our intra-articular femoral array was placed of a 45 degree angle proximal and posterior to the medial epicondyle. Our tibial array was placed greater than 1 hands breath below the incision at a 20 degree angle stab incisions were used for this case were attached and checked with the robotic software. Tourniquet was let down. At this point registration johnson were taken throughout the knee as well as checkpoints placed in the femur and tibia once the knee was registered then tensioned the medial and lateral ligaments in extension and 90 degrees of flexion. We then used these numbers to adjust our components within parameters to balance the knee in both flexion and extension once this was done on our monitor we then proceeded with using the robotic arm to make our tibial plateau cut and anterior posterior and chamfer cuts on the femur we then trialed and achieved the desired plan with a well- balanced knee. Lug holes were drilled in the femur the tibia preparation was completed with a fin punch and the patella was prepared by first using a caliper to ensure sufficient bone stock and a patellar reamer to remove the desired amount of bone locals were drilled for an asymmetric poly-. We then brought the knee through range of motion with excellent patellar tracking. We thoroughly irrigated the knee with a trial components were removed a posterior capsular injection with her standard cocktail was performed the aqua Mantis was also used to aid in hemostasis. Betadine rinse was allowed to sit and washed out components were cemented into place. Aricept rinse was then used followed by several more rate liters of irrigation after it was allowed to sit. Joint capsule was closed with #1 Ethibond [id number] followed by Vicryl in the subcutaneous tissues staple in the skin arrays and checkpoints were removed prior to closure all counts were correct stab incisions were closed with a stable standard dressing in the form of Mepilex for the main incision Xeroform 4 x 4 and Tegaderm over pin site holes. Thigh-high KEVIN hose applied over top of dressing. Patient tolerated the procedure well and was directed to PACU in stable condition no intraoperative complications
== END 2020-02-28 17:47 | disposition home or self-care (01) ==
LOC: SDC 08:32 → AC 08:33
PROVIDERS: Anesthesiology; PCP Student in an Organized Health Care Education/Training Program; Referring Provider Orthopaedic Surgery; Visit Provider Orthopaedic Surgery
PROC: 0SRC0JZ Replacement of Right Knee Joint with Synthetic Substitute, Open Approach (ICD-10-PCS; CPT 27447; principal; 2020-02-28 10:10)
DX: M17.11 Unilateral primary osteoarthritis, right knee (principal); E78.00 Pure hypercholesterolemia, unspecified; I11.0 Hypertensive heart disease with heart failure; I50.9 Heart failure, unspecified; Z79.82 Long term (current) use of aspirin; Z79.51 Long term (current) use of inhaled steroids; Z79.899 Other long term (current) drug therapy; Z87.891 Personal history of nicotine dependence; Z79.02 Long term (current) use of antithrombotics/antiplatelets; F41.9 Anxiety disorder, unspecified; Z85.51 Personal history of malignant neoplasm of bladder; G47.30 Sleep apnea, unspecified; I49.1 Atrial premature depolarization
CPT/HCPCS: 01400; 27447; 64447; S2900; 36415; 73560; 80048; 82962; 83735; 85025; 85610; 85730; 86850; 86900; 86901; 87081; 87635; 93005; 97162; C1776; G2023; J7120; J0702; J2405; J3490; U0003

== ENCOUNTER → 2020-03-14 11:34 | Outpatient (CLI) | payer MEDICARE, SELFPAY ==
[2020-02-29 10:03] VITALS: BMI 37.8; BMI 41.5
--- NOTE | 2020-03-14 11:34 | RAD_ITS ---
STUDY: X-RAY - LEFT FOOT CLINICAL: Male, 69 years old. UNSURE OF INJURY. PAINFUL FOOT. RECENT RIGHT TOTAL KNEE TECHNIQUE: 3 view(s) of the foot. COMPARISON: None. FINDINGS: Normal talus, calcaneus, and tarsal bones. Normal visualized subtalar, talonavicular, calcaneocuboid, tarsal and tarsometatarsal articulations. There is demineralization of the metatarsi. There is degenerative arthrosis of the metatarsophalangeal joint of the hallux . Normal tibial and fibular sesamoid bones. Normal interphalangeal joint of the great toe. Avulsion fractures at the base of the distal pharynx of the great toe. Normal second through fifth metatarsophalangeal joints. Normal interphalangeal joints and phalanges of the lesser toes. Soft tissue swelling. RAD/Foot min 3 Views IMPRESSION: Avulsion fractures at the base of the distal phalanx of the great toe. Soft tissue swelling. Electronically Signed: Bennie Greenfield, at 15:49 EDT , Service support ,
== END ==
LOC: HPRAD 11:34
PROVIDERS: PCP Student in an Organized Health Care Education/Training Program; Referring Provider Orthopaedic Surgery; Visit Provider Orthopaedic Surgery
DX: S92.402A Displaced unspecified fracture of left great toe, initial encounter for closed fracture (principal)
CPT/HCPCS: 73630

== ENCOUNTER → 2021-03-11 12:11 | Outpatient (CLI) | payer MEDICARE, SELFPAY ==
[2020-04-20 12:29] VITALS: BMI 37.8
[2021-03-11 11:04] VITALS: BMI 39.3
[2021-03-11 12:49] LABS: Absolute Lymphocyte Count 1.86 X10^3/uL (0.83-4.51); Absolute Neutrophil Count 6.2 X10^3/uL (2.0-7.7); Basophil# 0.03 X10^3/uL; Basophil% 0.3 % (0-1); Eosinophil# 0.14 X10^3/uL; Eosinophils% 1.6 % (0-5); Hematocrit 45.6 % (40-54); Hemoglobin 14.7 g/dL (13.0-16.5); Lymphocyte # 1.86 X10^3/ul (0.83-4.51); Lymphocyte % 21.1 % (19-41); Mean Corp Hgb Conc 32.2 g/dL (32-36); Mean Corpuscular Hgb 29.1 pg (27.0-32.0); Mean Corpuscular Volume 90.3 fL (80-94); Mean Platelet Vol. 11.1 fl (6.2-12.0); Monocyte# 0.56 X10^3/uL; Monocyte% 6.4 % (0-10); NRBC Flagged by Analyzer 0 % (0-5); Neutrophil # 6.16 X10^3/uL (2.7-7.7); Platelet Count 276 K/mm3 (150-450); RBC Distribution Width CV 13.7 % (11.6-14.6); RBC Distribution Width SD 45.5 fl (35.1-43.9); Red Blood Count 5.05 M/mm3 (4.6-6.2); White Blood Count 8.8 K/mm3 (4.4-11.0)
[2021-03-11 13:19] LABS: Anion Gap 7 (5-15); BUN 28 mg/dL (7-18); Calcium,Total 9.1 mg/dL (8.5-10.1); Chloride 105 mmol/L (98-107); Creatinine, Serum 1.27 mg/dL (0.70-1.30); EST Glomerular Filtration Rate 60 mL/min (>60); Est Glom Filt Rate - Afr Amer 72 mL/min (>60); Glucose 110 mg/dL (74-106); Potassium 3.9 mmol/L (3.5-5.1); Sodium Level 140 mmol/L (136-145)
[2021-03-11 13:23] LABS: BNP,B-Type NATRIURETIC PEPTIDE 56.1 pg/mL (0-100)
== END ==
PROVIDERS: PCP Student in an Organized Health Care Education/Training Program; Referring Provider Nurse Practitioner Gerontology; Visit Provider Nurse Practitioner Gerontology
DX: R06.09 Other forms of dyspnea (principal); I25.10 Atherosclerotic heart disease of native coronary artery without angina pectoris; I10 Essential (primary) hypertension; Z95.5 Presence of coronary angioplasty implant and graft
CPT/HCPCS: 80048; 83880; 85025

== ENCOUNTER → 2021-04-29 06:37 | Outpatient (CLI) | payer MEDICARE, SELFPAY ==
[2020-04-20 12:29] VITALS: BMI 37.8
[2021-03-11 11:04] VITALS: BMI 39.3
--- NOTE | 2021-04-29 06:45 | ECHOCS_ITS ---
Reason For Study: SOB Procedure This was a 2D Doppler, Color Flow transthoracic echocardiogram. The study was technically difficult. Exam performed in department. Left Ventricle Normal LV size. Mild concentric left ventricular hypertrophy. Left ventricular systolic function is normal. The estimated ejection fraction is 60 %. Stage 1 diastolic dysfunction. No regional wall motion abnormalities noted. Right Ventricle Normal RV size. Normal systolic function. Atria Normal left atrium. Normal right atrium. Mitral Valve Normal mitral valve. Tricuspid Valve Normal tricuspid valve. Unable to estimate RV systolic pressure due to inadequate jet, pulmonary artery pressure probably normal. Aortic Valve The aortic valve is not well visualized. Pulmonic Valve The pulmonic valve is not well visualized. Great Vessels Normal aortic root. The pulmonary artery is normal size. Normal inferior vena cava. Pericardium/Pleural No pericardial effusion. Medication Diluted definity 1ml given slow IV push to enhance endocardial definition. MMode/2D Measurements & Calculations LVIDd: 4.5 cm IVSd: 1.5 cm Ao root diam: 3.6 cm LVIDs: 2.7 cm LVPWd: 1.3 cm RVDd: 3.2 cm FS: 39.0 % LAV(MOD-bp): 55.0 ml LVAd ap4: 43.3 cm2 LVAd ap2: 34.8 cm2 LAV(MOD-bp) Indexed: 23.0 ml/m2 LVLd ap4: 8.7 cm LVLd ap2: 8.2 cm LAV(MOD-sp2): 58.1 ml EDV(MOD-sp4): 176.7 ml EDV(MOD-sp2): 124.4 ml LAV(MOD-sp4): 52.3 ml EDV(sp4-el): 183.0 ml EDV(sp2-el): 126.1 ml LVAs ap4: 24.7 cm2 LVAs ap2: 25.2 cm2 LVLs ap4: 7.3 cm LVLs ap2: 7.5 cm ESV(MOD-sp4): 71.3 ml ESV(MOD-sp2): 71.5 ml ESV(sp4-el): 71.2 ml ESV(sp2-el): 72.0 ml EF(MOD-sp4): 59.6 % EF(MOD-sp2): 42.5 % EF(sp4-el): 61.1 % SV(MOD-sp4): 105.4 ml SV(MOD-sp2): 52.9 ml SV(sp4-el): 111.8 ml LA A4 area: 20.8 cm2 LA dimension(2D): 4.9 cm RA A4 area: 20.3 cm2 Doppler Measurements & Calculations MV E max mango: 34.7 cm/sec Lat Peak E' Mango: 9.2 cm/sec Med Peak E' Mango: 7.3 cm/sec MV A max mango: 83.3 cm/sec E/E' lat: 3.8 E/E' med: 4.8 MV E/A: 0.42 Ao V2 max: 145.7 cm/sec LV V1 max: 84.1 cm/sec PA V2 max: 94.7 cm/sec Ao max P.5 mmHg LV V1 max P.8 mmHg ECHO/Echo Complete W/ Contrast Interpretation Summary Normal LV size. Mild concentric left ventricular hypertrophy. Left ventricular systolic function is normal. The estimated ejection fraction is 60 %. Stage 1 diastolic dysfunction. Ordering Physician: Suzi Kingsley/Edilberto Donahue Referring Physician: Barb Hilliard Performed By: Maureen Bear RDCS
--- NOTE | 2021-04-29 11:16 | STRESSREP ---
Stress Test Report Pharmacologic myocardial perfusion stress test. 70-year-old man with a history of coronary artery disease patient presents with chest heaviness. Medications: Atenolol, losartan, albuterol. Stress protocol: Resting EKG demonstrates sinus rhythm with a rate of 60 bpm normal intervals are noted resting blood pressure is 142/98 mmHg. 0.4 mg of regadenoson was infused per usual protocol followed by Intravenous saline flush injection continuous EKG monitoring was performed. The maximum heart rate attained was 75 bpm which was 49% of max infected heart rate the maximum workload was 1 metabolic equivalent. At rest there were no ST or T wave changes noted to suggest abnormal flow reserve. At peak infusion nonspecific ST changes were noted with did not meet the criteria for ischemia. Myocardial perfusion protocol. 14.8 mCi of technetium 99m sestamibi was injected at rest. 0.4 mg of regadenoson was infused per usual protocol. At peak infusion 44.7 mCi of technetium 99m sestamibi was injected stress images were obtained stress and rest images were reconstructed and compared in the short axis vertical long horizontal long axis. Gated images were also obtained to Perfusion SPECT analysis: Review of the stress images demonstrate normal uptake of tracer noted in all areas of the myocardium. The resting images similarly demonstrate normal uptake of tracer noted in all areas of the myocardium. No areas of reversibility are noted to suggest ischemia and no previous infarct is noted. Gated SPECT analysis: The gated ejection fraction is 62%. Conclusion: Normal pharmacologic myocardial perfusion stress test. Preserved ejection fraction.
== END ==
PROVIDERS: PCP Student in an Organized Health Care Education/Training Program; Referring Provider Physician Assistant Medical; Visit Provider Physician Assistant Medical
DX: R06.02 Shortness of breath (principal); R07.89 Other chest pain
CPT/HCPCS: 78452; 93017; 93306; A9500; Q9957; A4216; C8929; J2785; J3490